=== PATIENT | female | born 1975 | race Caucasian/White ===

== ENCOUNTER 2016-11-07 14:34 | Observation (INO) ==
[2016-11-07] MEDS ORDERED: *HR* Enoxaparin 80 MG/0.8 ML SYRINGE SQ STA (14:56)
--- NOTE | 2016-11-07 15:01 | Emergency Department Note ---
Disposition Clinical Impression: Thyroid nodule Chest pain Qualifiers: Chest pain type: unspecified Qualified Code(s): R07.9 - Chest pain, unspecified Disposition: Admitted As Inpatient Condition: Good Referrals: Bridget Romero CNP [Primary Care Provider] - Forms: ED Satisfaction Letter Time of Disposition: 19:23 Chest Pain HPI - General Chief Complaint: ED Chest Pain Stated Complaint: CP/KEO X4 DAYS Time Seen by Provider: 11/07/16 14:50 Source: patient Mode of arrival: ambulatory Limitations: no limitations Vital Signs Reviewed: Yes Nursing Notes Reviewed: Yes - History of Present Illness HPI Narrative: 41-year-old who comes in complaining of chest pain shortness of breath. The patient has history of previous PE following surgery in the past. Patient does have a Jessa filter. Patient did have a history of being on Xarelto but it was stopped due to the patient requiring transfusions with heavy periods. Patient had a clavicle resection on her shoulder approximately one week ago. Pt complaint: chest pain Onset (ago): hour(s) Duration: constant Onset: during rest Pain Location: substernal, left chest Severity: severe Severity scale (1-10): 9 Quality: sharp Pain Radiation: none Improves with: nothing Worsens with: nothing Context: recent surgery Associated symptoms: Denies: nausea, vomiting, diaphoresis - Related Data Home Medications Medication Instructions Recorded Confirmed Atenolol 100 mg PO DAILY 10/26/15 10/30/16 Cyclobenzaprine HCl 5 - 10 mg PO HS PRN 10/30/16 10/30/16 DiphenhydraMINE [Benadryl] 25 mg PO Q4HR PRN 10/30/16 10/30/16 Ibuprofen [Motrin] 600 mg PO TID PRN 10/30/16 10/30/16 Previous Rx's Medication Instructions Recorded Clindamycin [Cleocin] 150 mg PO Q6HR #7 capsule 10/30/16 OxyCODONE Immed Rel [Roxicodone 5 5 mg PO Q6HR PRN #30 tablet 10/30/16 MG] Allergies Allergy/AdvReac Type Severity Reaction Status Date / Time sulfamethoxazole Allergy Itching Verified 11/07/16 14:44 [From Bactrim] trimethoprim [From Bactrim] Allergy Itching Verified 11/07/16 14:44 divalproex sodium AdvReac Hallucinati Verified 11/07/16 14:44 [From Depakote] ng sumatriptan [From Imitrex] AdvReac Cramping Verified 11/07/16 14:44 of the Muscles Constitutional: Denies: fever, chills, weakness, weight change Eyes: Denies: eye pain, eye discharge, vision change ENT ED: Denies: ear pain, throat pain, dental pain, hearing loss, epistaxis, congestion, dysphagia Cardiovascular: Reports: chest pain. Denies: palpitations, dyspnea on exertion , edema, syncope Respiratory: Reports: dyspnea. Denies: cough, wheezes, hemoptysis, stridor Gastrointestinal: Denies: abdominal pain, nausea, vomiting, diarrhea, constipation, hematemesis, melena, hematochezia Genitourinary: Denies: dysuria, frequency, hematuria, discharge Musculoskeletal: Denies: back pain, neck pain, arthralgia, myalgia Integumentary: Denies: rash, abrasion, lesions Neurological: Denies: headache, weakness, numbness, paresthesias, confusion, abnormal gait, vertigo Psychiatric: Denies: anxiety, depression, suicidal thoughts, homicidal thoughts , auditory hallucinations, visual hallucinations Endocrine: Denies: fatigue Hematological/Lymphatic: Denies: easy bleeding, easy bruising Allergic/Immunologic: Denies: facial swelling, urticaria Chest Pain PMH - Past Medical History Medical history: Reports: hypertension, pulmonary embolus, other Surgical history: Reports: knee replacement, other Psychiatric history: Reports: no psych history - Social History Smoking Status: Never smoker Alcohol use: Reports: none Drug use: Reports: none Physical Exam - General Limitations: no limitations General appearance: alert, in no apparent distress - Head Head exam: atraumatic, normocephalic, normal inspection - Eye Eye exam: Present: normal appearance, PERRL, EOMI - ENT ENT exam: normal exam, normal oropharynx, mucous membranes moist - Neck Neck exam: Present: normal inspection, full ROM, trachea midline - Chest Chest inspection: Present: normal inspection, symmetric chest wall rise - Respiratory Respiratory exam: Present: normal lung sounds bilaterally - Cardiovascular Cardiovascular exam: Present: regular rate, normal rhythm, normal heart sounds - Abdominal Exam Abdominal exam: Present: soft, Non-Tender. Absent: tenderness, distention, guarding, rebound, rigidity - Expanded Lower Extremity Exam Neurovascular/Tendon exam: Absent: motor deficit, sensory deficit, tendon deficit Gait: not tested/not observed - Back Exam Back exam: Present: normal inspection, full ROM. Absent: tenderness - Neurological Exam Neurological exam: Present: alert, oriented X3 - Psychiatric Psychiatric exam: Present: normal affect, normal mood - Skin Skin exam: Present: warm, dry, intact, normal color Course - Reevaluation(s) Reevaluation #1: I discussed with the patient the low GFR. She has had one episode when her GFR was at this level in the past. I did discuss that her d-dimer is elevated however she does have a recent history of surgery. That risk based on her previous PEs and also recent surgery. I did discuss with her the CTA versus VQ scan. I did note that the CTA does give much better information. We will hydrate her. However I cannot guarantee that she will suffer some kidney damage. She understands that and was to proceed with the CTA of the chest. Time: 16:47 Reevaluation #2: Patient is a very high risk factor for PE. CT scan does not appear to be adequate. Were unable to admit her to get a VQ scan we've treated her with Lovenox. Time: 19:23 - Consultations Consultation #1: Discussed with Dr.Adeoye santiago. Time: 19:22 Vital Signs Temperature 97.6 F 11/07/16 14:43 Pulse Rate 98 11/07/16 14:43 Respiratory Rate 16 11/07/16 14:43 Blood Pressure 146/87 11/07/16 14:43 O2 Sat by Pulse Oximetry 100 11/07/16 14:43 Temperature 97.6 F 11/07/16 14:43 Pulse Rate 98 11/07/16 14:43 Respiratory Rate 16 11/07/16 14:43 Blood Pressure 146/87 11/07/16 14:43 O2 Sat by Pulse Oximetry 100 11/07/16 14:43 Oxygen Delivery Oxygen Delivery Room Air Chest Pain - Lab Data Result diagrams: 11/07/16 15:36 11/07/16 15:36 Lab Results 11/07/16 11/07/16 11/07/16 Range/Units 15:36 15:36 15:36 WBC 13.9 H (4.3-11.1) K/mcL RBC 4.42 (3.82-4.97) M/mcL Hgb 12.2 (11.5-15.4) g/dL Hct 38.7 (35.3-44.9) % MCV 87.6 (83.0-100.0) fL MCH 27.6 L (28.0-33.3) pg MCHC 31.5 L (31.6-35.5) g/dL RDW 14.7 H (11.5-14.5) % Plt Count 179 (140-400) K/mcL MPV 9.5 (9.4-12.4) fL Immature Gran % 3.2 (0-4) % Seg Neutrophils % 72.9 % Lymphocytes % 13.9 % Monocytes % 6.4 % Eosinophils % 3.0 % Basophils % 0.6 % Neutrophils # 10.1 H (1.6-8.9) K/mcL Lymphocytes # 1.9 (0.6-4.6) K/mcL Monocytes # 0.9 (0.0-1.3) K/mcL Eosinophils # 0.4 (0.0-0.6) K/mcL Basophils # 0.1 (0.0-0.2) K/mcL PT 13.7 H (9.4-12.1) Seconds INR 1.3 APTT 32.2 (26.0-36.0) Seconds D-Dimer 6517 H (0-500) ng/mLFEU Sodium 134 L (136-145) mEq/L Potassium 5.0 H (3.5-4.5) mEq/L Chloride 104 (98-109) mEq/L Carbon Dioxide 18 L (19-29) mEq/L BUN 26 H (7-20) mg/dL Creatinine 1.28 H (0.57-1.11) mg/dL Est GFR ( Amer) 55 L (> 60) Est GFR (Non-Af Amer) 46 L (> 60) BUN/Creatinine Ratio 20 (6-26) Glucose 96 (70-99) mg/dL Calculated Osmolality 283 (280-300) Calcium 9.5 (8.6-10.8) mg/dL Troponin I (0-0.03) ng/mL 11/07/16 Range/Units 15:36 WBC (4.3-11.1) K/mcL RBC (3.82-4.97) M/mcL Hgb (11.5-15.4) g/dL Hct (35.3-44.9) % MCV (83.0-100.0) fL MCH (28.0-33.3) pg MCHC (31.6-35.5) g/dL RDW (11.5-14.5) % Plt Count (140-400) K/mcL MPV (9.4-12.4) fL Immature Gran % (0-4) % Seg Neutrophils % % Lymphocytes % % Monocytes % % Eosinophils % % Basophils % % Neutrophils # (1.6-8.9) K/mcL Lymphocytes # (0.6-4.6) K/mcL Monocytes # (0.0-1.3) K/mcL Eosinophils # (0.0-0.6) K/mcL Basophils # (0.0-0.2) K/mcL PT (9.4-12.1) Seconds INR APTT (26.0-36.0) Seconds D-Dimer (0-500) ng/mLFEU Sodium (136-145) mEq/L Potassium (3.5-4.5) mEq/L Chloride (98-109) mEq/L Carbon Dioxide (19-29) mEq/L BUN (7-20) mg/dL Creatinine (0.57-1.11) mg/dL Est GFR ( Amer) (> 60) Est GFR (Non-Af Amer) (> 60) BUN/Creatinine Ratio (6-26) Glucose (70-99) mg/dL Calculated Osmolality (280-300) Calcium (8.6-10.8) mg/dL Troponin I 0.00 (0-0.03) ng/mL - Radiology Data Radiology results reviewed: Yes I reviewed the patient's radiology results. Chest CTA 11/07/16 14:53 IMPRESSION: 1. Suboptimal opacification of the pulmonary arteries. No evidence of pulmonary embolus to the proximal segmental level. 2. Mild bibasilar atelectasis. 3. Partially visualized left thyroid nodule. Follow-up thyroid ultrasound is recommended for further evaluation on a nonemergent basis if not previously performed. D/ / Cresencio Frederick MD / Cresencio Frederick MD Interpreting Provider: Cresencio Frederick MD Chest X-Ray 11/07/16 14:53 IMPRESSION: Linear atelectasis at the left lung base. Otherwise no acute abnormality. D/ / Almas Zavala MD / Almas Zavala MD Interpreting Provider: Almas Zavala MD - EKG Data EKG attestation: Yes I reviewed and interpreted this EKG. EKG shows normal: sinus rhythm Rate: tachycardia Rhythm: NSR Interpretation: no acute changes
[2016-11-07 15:50] LABS: Basophils # 0.1 K/mcL (0.0-0.2); Basophils % 0.6 %; Eosinophils # 0.4 K/mcL (0.0-0.6); Hematocrit 38.7 % (35.3-44.9); Hemoglobin 12.2 g/dL (11.5-15.4); Immature Granulocytes % 3.2 % (0-4); Lymphocytes # 1.9 K/mcL (0.6-4.6); Lymphocytes % 13.9 %; Mean Corpuscular HGB Conc 31.5 g/dL (31.6-35.5); Mean Corpuscular Hemoglobin 27.6 pg (28.0-33.3); Mean Corpuscular Volume 87.6 fL (83.0-100.0); Mean Platelet Volume 9.5 fL (9.4-12.4); Monocytes # 0.9 K/mcL (0.0-1.3); Monocytes % 6.4 %; Neutrophils # 10.1 K/mcL (1.6-8.9); Platelet Count 179 K/mcL (140-400); Red Blood Count 4.42 M/mcL (3.82-4.97); Red Cell Distribution Width 14.7 % (11.5-14.5); Segmented Neutrophils % 72.9 %
[2016-11-07 16:03] LABS: Calcium 9.5 mg/dL (8.6-10.8)
[2016-11-07 16:09] LABS: INR 1.3; Prothrombin Time 13.7 Seconds (9.4-12.1)
[2016-11-07 16:12] LABS: Activated Partial Thrombo Time 32.2 Seconds (26.0-36.0)
[2016-11-07] MEDS ORDERED: *HR* HYDROmorphone (PF) 1 MG/ML SYRINGE IVP ONE ×2 (17:41→20:02)
[2016-11-07] MEDS ORDERED: Ondansetron 4 MG/2 ML VIAL IVP ONE (17:41)
[2016-11-07] MEDS: 0.9 % Sodium Chloride 1,000 ML IVC SCH (18:02)
[2016-11-07] MEDS ORDERED: MOM Conc 10 ML UD.LIQ PO PRN (20:12)
[2016-11-07] MEDS ORDERED: *HR* Metoprolol 5 MG/5 ML VIAL IVP PRN (20:12)
[2016-11-07] MEDS ORDERED: Acetaminophen 325 MG TABLET PO PRN (20:12)
[2016-11-07] MEDS ORDERED: 0.9 % Sodium Chloride 1,000 ML IVC STA (20:12)
[2016-11-07] MEDS ORDERED: Nitroglycerin 0.4 MG TAB.SUBL SL PRN (20:12)
[2016-11-07] MEDS ORDERED: Mag Hydrox/Al Hydrox/Simeth 30 ML UDC PO PRN (20:12)
[2016-11-07] MEDS ORDERED: *HR* OxyCODONE Immed Rel 5 MG TABLET PO PRN (20:12)
[2016-11-07] MEDS ORDERED: Aspirin 81 MG TAB.CHEW PO ONE (20:12)
[2016-11-07] MEDS ORDERED: Benzonatate 100 MG CAPSULE PO PRN (20:12)
[2016-11-07] MEDS ORDERED: Naloxone 0.4 MG/ML INJ IVP PRN (20:12)
[2016-11-07] MEDS ORDERED: Albuterol 2.5 MG/3 ML NEBULIZER IH PRN (20:12)
[2016-11-07] MEDS ORDERED: Pantoprazole 40 MG VIAL IVP ONE (20:22)
--- NOTE | 2016-11-07 20:36 | Internal Med History&Physical ---
Date of Encounter: 11/07/16 Time of Encounter: 21:00 Assessment and Plan (1) Chest pain, rule out acute myocardial infarction Current visit: Yes Status: Acute . (2) Chest pain with low risk of acute coronary syndrome Current visit: Yes Status: Acute . (3) Acute chest wall pain Current visit: Yes Status: Acute . (4) Acute kidney injury superimposed on CKD Current visit: Yes Status: Acute . (5) Neutrophilic leukocytosis Current visit: Yes Status: Acute . (6) Systemic inflammatory response syndrome (SIRS) Current visit: Yes Status: Acute . (7) Mild bibasilar atelectasis Current visit: Yes Status: Acute . (8) Hypoventilation associated with obesity Current visit: Yes Status: Acute . (9) Thyroid nodule Current visit: Yes Status: Acute . (10) Hyperkalemia Current visit: Yes Status: Acute . (11) History of pulmonary embolism Current visit: Yes Status: Chronic . (12) Morbid obesity with BMI of 50.0-59.9, adult Current visit: Yes Status: Chronic . (13) Presence of IVC filter Current visit: Yes Status: Chronic . (14) Anxiety about health Current visit: Yes Status: Acute . (15) Coagulopathy Current visit: Yes Status: Chronic . (16) Anxiety as acute reaction to exceptional stress Current visit: Yes Status: Acute . (17) Easy fatigability Current visit: Yes Status: Acute . (18) Sleep disorder, unspecified Current visit: Yes Status: Acute . (19) Snoring Current visit: Yes Status: Acute . (20) Metabolic acidosis Current visit: Yes Status: Acute . (21) Hyponatremia Current visit: Yes Status: Acute . Internal Medicine - H&P: HPI Chief complaint: Chest pain Admitted From: Emergency Dept Plans for Post Hospital Care: Home History of present illness: Ms. Mathur is a 41 year old female with history significant for H/O extensive PEs 2 unprovoked (chronic anticoagulation stopped due to vaginal bleeding), ? DVT x1, IVC filter placement, hypertension, migraine headaches, osteoarthritis, osteopenia, depression and anxiety, iron deficiency anemia, morbid obesity, nonsmoker The patient was visited and interviewed and examined. She was admitted [place] [facility] [place] the [place] department with the complaint of acute chest pain associated with difficulty in breathing . He finds a personal history of unprovoked pulmonary emboli 2 (March 2014 and February 2015). Etiology of unprovoked venous thrombolic disease unknown. Patient withdrawn from chronic anticoagulation therapy due to recurring vaginal bleeding while on Xarelto. A Haven filter has been placed for prophylactic detection from further events. She states however she has never to her knowledge experienced a DVT of the lower extremities or upper extremities as a source for her current thromboembolic events. (Medical record however states that in 2007 she experienced her first episode of DVT. A coagulation workup at [facility] in [place] reportedly was unremarkable at that time. She was treated with 6 months of Coumadin therapy and discontinued). She denies any family history of increased clotting disorders or vascular or cerebrovascular medical events. Reports that her current symptoms followed right shoulder surgery (arthroscopic resection and subacromial decompression) performed approximately 2 days prior to presentation. This included a repair of a rotator cuff tear and clavicular resection by minimally invasive seizure. During her surgery she reports that she held listless and experienced easy fatigability that just did not resolve disimpacted unfavorably in her ability to complete her personal activities independently. An acute onset of chest discomfort during rest substernal with a left-sided preference was seen. She did acknowledge positional and respiratory variation in this discomfort. She described it as severe and sharp that a 8-10/10 severity. Nothing seemed to improve symptoms were present. Acknowledge Presence of dyspnea at rest and increase with activity. She denies any associated nausea vomiting diaphoresis headache unilateral weakness dyspnea syncope presyncope palpitations or peripheral edema. He denies any fevers chills sweats. She denied any evidence of any bleeding events (epistaxis, hemoptysis hematemesis melena hematuria ecchymoses etc.). Denied any inflammatory changes of the right shoulder including redness swelling pain or discharge from wound sites. The onset of symptoms and persistence of listlessness and feeling of intermittent ability to take a deep breath rest of the time with pulmonary emboli events. She denies any significant dietary medication or recreational indiscretions. She is a nonsmoker. Findings in the ED: Temperature 97.6 pulse 89 respirations 16 BP 146/87 O2 saturation 100% room air. WBC 13.9 hemoglobin 12.2 platelets 179,000. MCH 27.6 MCHC 31.5. Differential showed an increase in neutrophils. PT 13.7 INR 1.3 PTT 32.2 d- dimer 6517. Metabolic panel findings sodium 134 potassium 5 carbon dioxide 18 BUN 26 creatinine 1.28 GFR 46. Glucose 96 osmolality 283. Troponin 0.00. BNP less than 10. EKG sinus tachycardia normal sinus rhythm with no acute ischemic changes. CTA of the chest demonstrated no evidence of pulmonary embolus to the proximal segmental level. (Suboptimal opacification of the pulmonary arteries) . Mild bibasilar atelectasis. Partially visualized left thyroid nodule approximately 8 mm in diameter. The main pulmonary artery is not enlarged. No evidence of mediastinal lymphadenopathy. Heart and pericardium demonstrated no abnormality. No acute abnormalities thoracic aorta. Airways are unremarkable. No pneumothorax or pleural effusion seen. Limited images of her abdomen unremarkable. Soft tissues revealed no acute bone or soft tissue abnormality. Portable chest x-ray reveals linear atelectasis at the lung base, left. No focal consolidation or pleural effusion pneumothorax. Heart size normal. Low lung volumes. Pulmonary impression suggests noncardiogenic chest pain syndrome secondary to basilar atelectasis with pleuritic quality pain and significant hypoventilation with associated bibasilar atelectasis secondary to obesity and as a sequela from recent intubation and ventilator support while under general anesthesia for orthopedic surgery. Patient dates symptoms beginning following her procedure with persistence. Screening studies suggest systemic inflammatory response syndrome and sepsis criteria are met at the time of admission. Source for infection is unclear. Studies suggest acute kidney injury stage III. Additional studies are pending. A indeterminate thyroid nodule was noted warranting further evaluation. 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 Indeed her mother 's symptoms of late have been of increasing concern for Mrs. Mathur with an episode of [id number] seizures experienced just 2 days before surgery. She acknowledges additional personal demands but did not elaborate. 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 He also notes that she is a very loud snorer when the question was brought up of possible obstructive sleep apnea. She meets criterion for this yet to be diagnosed sleep disorder and sleep disordered breathing. The body habitus is worrisome for a pickwickian syndrome. Condition being aggravated following her surgery and anesthesia and intubation associated compressive atelectasis. Intubation and ventilator support may be underlying current relationship of her symptoms presented now. The patient is at risk for further clinical decline and morbidity given her presenting concerns , findings and comorbidities. Workup and treatment will proceed comprehensively. Cumulative laboratory and radiographic data base was reviewed, considered and discussed. Pertinent ancillary medical records including ECW and PCI documentation, when available was reviewed and considered. Given the patient's presenting concerns, past medical history, clinical findings and symptoms, she is admitted at this time will undergo further evaluation and disposition. Orders were written as per the computerized physician division order analyst system.......................................................................... .................... Consultative opinions will be sought as clinical circumstances justify. Pain management needs will be addressed. Laboratory and radiographic data base will be updated as appropriate. Studies include: Cultures of blood and urine and sputum, cpk, cardiac injury panel, BNP , metabolic and hematologic panel, magnesium, phosphorus, ionized calcium, thyroid panel, lipid profile, A1c, C-peptide, CRP, sedimentation rate, respiratory infection profile, respiratory virus panel, blood gas, U/A, coagulation panel, D-Dimer, lactic acid, serologies, etc. Precautions: Aspiration, fall, delirium protocol/surveillance initiated. Telemetry with continuous hemodynamic monitoring and pulse oximetry initiated. Empiric antibody coverage: pending weaning laboratory and culture data. Special studies: CTA chest, chest x-ray, telemetry, EKG, latter scan, postvoid, ultrasound retroperitoneum, echocardiogram, thyroid ultrasound. Pulmonary toilet: Incentive spirometry, aerosol bronchodilator, mucolytic, antitussive, supplemental oxygen. Flutter valve with neb treatments. Acapella. Corticosteroid therapy prn. CPAP/BiPAP supplemental oxygen delivery prn. Aerosol Mucomyst therapy prn. Fluid and electrolyte repletion efforts will proceed. Careful attention to fluid balance and renal recovery will be emphasized. Avoidance of nephrotoxic exposure and adverse drug drug interaction in the setting of impaired renal function will be monitored closely. Acute coronary syndrome protocol/surveillance initiated. DVT and PUD prophylaxis initiated: PPI therapy, intermittent pneumatic cuffs. Subcutaneous heparin/lovenox. Early ambulation will be encouraged. Immunization updates recommended. Influenza and pneumococcal vaccinations as part of ongoing preventative healthcare recommendations strongly recommended. Smoking cessation counseling briefly addressed. Patient is a nonsmoker. Advanced care directive discussion briefly addressed. Patient does not declare any healthcare restrictions at this time. Cardiovascular risk appraisal and cardiovascular risk reduction efforts will be emphasized. Physical and occupational therapy may be consulted to evaluate/assess patient's functional capacity and progress mobility if circumstances justify. The patient has been counseled regarding the importance of aerobic exercise especially focusing on improvement in lung dynamics and aeration. Along with weight loss atelectasis and low lung volumes noted at admission should resolve. Nutrition/dietary education counseling may be considered if circumstances justify it may be pursued in the outpatient with facilitation by her primary care physician. The patient has been stressed importance of pursuing an outpatient as sleep clinic appointment the intent to arrange for a sleep study and formal definition of her sleep-disordered breathing. He is stressed importance of pursuing this and arriving at a plan of care for what is suspicious for NELL and OHS. Outpatient medication schedules will be reviewed, confirmed and facilitated as appropriate. Reconciliation of home treatments including adjustments, substitutions and reintroduction into the treatment regimen will address necessary maintenance therapies for chronic pre-existing medical conditions. Plan of care has been reviewed and discussed in detail with the patient and her family. Questions addressed to their mutual satisfaction and reassurance.. Hospital course depend upon collective clinical findings, treatment response and potential consultative interventions. Patient is at risk for further acute clinical decline and morbidity due to her presenting chief complaints and comorbid conditions. Lifelong chronic anticoagulation therapy is normally recommended in multiple recurrent VTE events as seen in this patient. However she has chosen to forego chronic anticoagulation. She has declined in the past gynecologic interventions(i.e., endometrial ablation, hysterectomy, etc.) for her recurrent vaginal bleeding while on a prolonged anticoagulant therapy. He voices understanding of her risks. Condition is serious. Prognosis is cautiously optimistic. CODE STATUS is full. Past Med Surg Social Fam HX - Past Medical History Source: old records reviewed Medical history: arthritis, GERD, hypertension, osteoporosis, pulmonary embolus , other (Morbid obesity) Psychiatric history: no psych history - Past Surgical History Surgical History: knee replacement, orthopedic, other, other (IVC filter placement. Dilatation and curettage procedure.), arthroscopy - Social History Smoking Status: Never smoker Smokeless Tobacco Status: No Alcohol use: none Drug use: none Occupational status: employed Current living situation: With Family Activity Level: Independent ambulation, Mostly sedentary Recent Out of Country Travel Within the Last 8 Weeks: No Exposure or Possible Exposure to Illness During Travel: No - Family History Father Hx Family Cardiac Disorders: Yes (HTN) Internal Medicine - H&P: Meds Atenolol 100 mg PO DAILY 10/26/15 [History] Allergies sulfamethoxazole [From Bactrim] Allergy (Verified 11/07/16 14:44) Itching trimethoprim [From Bactrim] Allergy (Verified 11/07/16 14:44) Itching divalproex sodium [From Depakote] Adverse Reaction (Verified 11/07/16 14:44) Hallucinating sumatriptan [From Imitrex] Adverse Reaction (Verified 11/07/16 14:44) Cramping of the Muscles All Systems PM: A 10-system review of systems was performed and is negative for pertinent findings except as documented above in the HPI. - Constitutional Constitutional: as per HPI, malaise, no chills, no fever(s), no night sweats - EENT Eyes: as per HPI, no change in vision, no discharge, no pain, no photophobia Ears: as per HPI, no ear discharge, no ear pain, no tinnitus Nose, mouth and throat: as per HPI, no dysphagia, no nasal discharge, no neck pain, no sore throat - Cardiovascular Cardiovascular ROS IM: as per HPI, chest pain, dyspnea, no diaphoresis, no lightheadedness, no palpitations, no syncope - Respiratory Respiratory: as per HPI, dyspnea, snoring, stridor, pain on inspiration, pain with cough, other, no cough, no hemoptysis, no wheezing, no excessive phlegm production - Gastrointestinal Gastrointestinal: as per HPI, no abdominal pain, no diarrhea, no hematemesis, no hematochezia, no melena, no nausea, no vomiting - Genitourinary Genitourinary: as per HPI, no change in urinary stream, no dysuria, no flank pain, no hematuria - Musculoskeletal Musculoskeletal ROS IM: as per HPI, other, no numbness, no tingling - Integumentary Integumentary IM: as per HPI, no rash, no unusual bruising - Neurological Neurological ROS: as per HPI, no confusion, no convulsions, no focal weakness, no numbness, no tingling, no tremor(s) - Psychiatric Psychiatric: as per HPI - Endocrine Endocrine IM: as per HPI - Hematologic/Lymphatic Hematologic/Lymphatic: as per HPI, no easy bruising - Allergic/Immunologic Allergic/Immunologic: as per HPI - Constitutional Vitals: Temp Pulse Resp BP Pulse Ox 97.6 F 98 16 141/85 100 11/07/16 14:43 11/07/16 14:43 11/07/16 20:10 11/07/16 20:10 11/07/16 14:43 General appearance: Present: cooperative, A&O X 3, morbidly obese, no acute distress, answers questions appropriately - Head Head exam: Present: atraumatic, normal inspection, normocephalic - Eye Eye exam: Present: EOMI, PERRL, conjuntiva pink, sclera anicteric Pupils: Present: normal accommodation, PERRL - ENT ENT exam: Present: mucous membranes moist, normal external ear exam, normal oropharynx - Neck Neck exam general surgery: Present: full ROM, supple, trachea midline. Absent: lymphadenopathy, tenderness, nuchal rigidity - Respiratory Respiratory exam: Present: chest wall tenderness, decreased breath sounds, CTAB. Absent: accessory muscle use, rales, respiratory distress, rhonchi, stridor, wheezes, tachypnea - Cardiovascular Cardiovascular exam: Present: distant heart sounds, RRR, +S1, +S2. Absent: diastolic murmur, gallop, rubs, systolic murmur - GI/Abdominal GI/Abdominal exam: Present: diminished bowel sounds, soft, no peritoneal signs. Absent: distended, tenderness - Extremities Exam Extremities exam: Present: full ROM, warm, radial pulses palpable and symetrical. Absent: calf tenderness, cyanotic, pedal edema, tenderness - Neurological Exam Neurological exam: Present: alert, CN II-XII intact, oriented X3, no focal deficits, strengths equal and symetr throughout. Absent: pronater drift, facial droop, speech deficit - Expanded Neurological Exam Neurological exam expanded: Present: protecting the airway. Absent: ataxia, expressive aphasia, receptive aphasia, tremor Patient oriented to: Present: person, place, time Speech: Present: fluid speech Coma Scale Eye Opening: Spontaneous Coma Scale Motor Response: Obeys Commands Coma Scale Verbal Response: Oriented Coma Scale Total: 15 - Psychiatric Psychiatric exam: Present: normal affect, normal mood - Skin Skin exam: Present: dry, intact, warm. Absent: petechiae, rash, urticaria, vesicles Internal Med - H&P Results - Labs CBC & Chem 7: 11/07/16 15:36 11/07/16 15:36 - Impressions Vital Signs Temp Pulse Resp BP Pulse Ox 11/07/16 20:10 16 141/85 11/07/16 14:43 97.6 F 98 16 146/87 100 Intake and Output 11/07/16 11/07/16 11/07/16 07:59 15:59 23:59 Other: Weight 158.757 kg Patient Weight 11/07/16 23:59 Weight 158.757 kg Short CBC 11/07/16 Range/Units 15:36 WBC 13.9 H (4.3-11.1) K/mcL Hgb 12.2 (11.5-15.4) g/dL Hct 38.7 (35.3-44.9) % Plt Count 179 (140-400) K/mcL Neutrophils # 10.1 H (1.6-8.9) K/mcL BMP 11/07/16 Range/Units 15:36 Sodium 134 L (136-145) mEq/L Potassium 5.0 H (3.5-4.5) mEq/L Chloride 104 (98-109) mEq/L Carbon Dioxide 18 L (19-29) mEq/L BUN 26 H (7-20) mg/dL Creatinine 1.28 H (0.57-1.11) mg/dL Glucose 96 (70-99) mg/dL Calcium 9.5 (8.6-10.8) mg/dL Cardiac Enzymes 11/07/16 Range/Units 15:36 Troponin I 0.00 (0-0.03) ng/mL Abnormal lab results WBC 13.9 K/mcL (4.3-11.1) H 11/07/16 15:36 MCH 27.6 pg (28.0-33.3) L 11/07/16 15:36 MCHC 31.5 g/dL (31.6-35.5) L 11/07/16 15:36 RDW 14.7 % (11.5-14.5) H 11/07/16 15:36 Neutrophils # 10.1 K/mcL (1.6-8.9) H 11/07/16 15:36 PT 13.7 Seconds (9.4-12.1) H 11/07/16 15:36 D-Dimer 6517 ng/mLFEU (0-500) H 11/07/16 15:36 Sodium 134 mEq/L (136-145) L 11/07/16 15:36 Potassium 5.0 mEq/L (3.5-4.5) H 11/07/16 15:36 Carbon Dioxide 18 mEq/L (19-29) L 11/07/16 15:36 BUN 26 mg/dL (7-20) H 11/07/16 15:36 Creatinine 1.28 mg/dL (0.57-1.11) H 11/07/16 15:36 Est GFR ( Amer) 55 (> 60) L 11/07/16 15:36 Est GFR (Non-Af Amer) 46 (> 60) L 11/07/16 15:36 Allergies Allergy/AdvReac Type Severity Reaction Status Date / Time sulfamethoxazole Allergy Itching Verified 11/07/16 14:44 [From Bactrim] trimethoprim [From Bactrim] Allergy Itching Verified 11/07/16 14:44 divalproex sodium AdvReac Hallucinati Verified 11/07/16 14:44 [From Depakote] ng sumatriptan [From Imitrex] AdvReac Cramping Verified 11/07/16 14:44 of the Muscles Laboratory Results WBC 13.9 K/mcL (4.3-11.1) H 11/07/16 15:36 RBC 4.42 M/mcL (3.82-4.97) 11/07/16 15:36 Hgb 12.2 g/dL (11.5-15.4) 11/07/16 15:36 Hct 38.7 % (35.3-44.9) 11/07/16 15:36 MCV 87.6 fL (83.0-100.0) 11/07/16 15:36 MCH 27.6 pg (28.0-33.3) L 11/07/16 15:36 MCHC 31.5 g/dL (31.6-35.5) L 11/07/16 15:36 RDW 14.7 % (11.5-14.5) H 11/07/16 15:36 Plt Count 179 K/mcL (140-400) 11/07/16 15:36 MPV 9.5 fL (9.4-12.4) 11/07/16 15:36 Immature Gran % 3.2 % (0-4) 11/07/16 15:36 Seg Neutrophils % 72.9 % 11/07/16 15:36 Lymphocytes % 13.9 % 11/07/16 15:36 Monocytes % 6.4 % 11/07/16 15:36 Eosinophils % 3.0 % 11/07/16 15:36 Basophils % 0.6 % 11/07/16 15:36 Neutrophils # 10.1 K/mcL (1.6-8.9) H 11/07/16 15:36 Lymphocytes # 1.9 K/mcL (0.6-4.6) 11/07/16 15:36 Monocytes # 0.9 K/mcL (0.0-1.3) 11/07/16 15:36 Eosinophils # 0.4 K/mcL (0.0-0.6) 11/07/16 15:36 Basophils # 0.1 K/mcL (0.0-0.2) 11/07/16 15:36 PT 13.7 Seconds (9.4-12.1) H 11/07/16 15:36 INR 1.3 11/07/16 15:36 APTT 32.2 Seconds (26.0-36.0) 11/07/16 15:36 D-Dimer 6517 ng/mLFEU (0-500) H 11/07/16 15:36 Sodium 134 mEq/L (136-145) L 11/07/16 15:36 Potassium 5.0 mEq/L (3.5-4.5) H 11/07/16 15:36 Chloride 104 mEq/L (98-109) 11/07/16 15:36 Carbon Dioxide 18 mEq/L (19-29) L 11/07/16 15:36 BUN 26 mg/dL (7-20) H 11/07/16 15:36 Creatinine 1.28 mg/dL (0.57-1.11) H 11/07/16 15:36 Est GFR ( Amer) 55 (> 60) L 11/07/16 15:36 Est GFR (Non-Af Amer) 46 (> 60) L 11/07/16 15:36 BUN/Creatinine Ratio 20 (6-26) 11/07/16 15:36 Glucose 96 mg/dL (70-99) 11/07/16 15:36 Calculated Osmolality 283 (280-300) 11/07/16 15:36 Calcium 9.5 mg/dL (8.6-10.8) 11/07/16 15:36 Troponin I 0.00 ng/mL (0-0.03) 11/07/16 15:36 Impressions Chest CTA 11/07/16 14:53 IMPRESSION: 1. Suboptimal opacification of the pulmonary arteries. No evidence of pulmonary embolus to the proximal segmental level. 2. Mild bibasilar atelectasis. 3. Partially visualized left thyroid nodule. Follow-up thyroid ultrasound is recommended for further evaluation on a nonemergent basis if not previously performed. D/ / Cresencio Frederick MD / Cresencio Frederick MD Interpreting Provider: Cresencio Frederick MD Chest X-Ray 11/07/16 14:53 IMPRESSION: Linear atelectasis at the left lung base. Otherwise no acute abnormality. D/ / Almas Zavala MD / Almas Zavala MD Interpreting Provider: Almas Zavala MD
[2016-11-07] MEDS: Ipratropium/Albuterol Neb 3 ML IH SCH (23:09)
[2016-11-07 23:12] LABS: Magnesium 1.9 mg/dL (1.6-2.6); Phosphorous 5.5 mg/dL (2.3-4.7)
[2016-11-08] MEDS: *HR* HYDROmorphone (PF) 1 MG/ML SYRINGE IVP PRN ×3 (02:44→11:53)
[2016-11-08] MEDS ORDERED: Calcium Gluconate 1,000 MG in D5% in Water 100 ML IVPB ONE (02:46)
[2016-11-08 05:06] LABS: Bilirubin,Urine Small (Negative); Blood,Urine Negative (Negative); Clarity,Urine Clear (Clear); Color,Urine Yellow (Yellow); Glucose,Urine (UA) Normal (Normal); Ketones,Urine Negative (Negative); Leukocyte Esterase,Urine Negative (Negative); Nitrite,Urine Negative (Negative); PH,Urine 5.5 pH Units (5.0-8.0); Protein,Urine Trace mg/dL (Neg-Trace); Specific Gravity,Urine > 1.030 (1.010-1.025); Urobilinogen,Urine Normal (Normal)
[2016-11-08 05:08] LABS: Bacteria,Urine None Seen per hpf (None-Few); Hyaline Casts,Urine None Seen per lpf (None-Few); Squamous Epithelial Cell,Urine Many per lpf (None-Few); WBC,Urine 0-3 per hpf (0-3)
[2016-11-08] MEDS: Ipratropium/Albuterol Neb 3 ML IH SCH ×2 (05:11→10:35)
[2016-11-08] MEDS: Ondansetron 4 MG/2 ML VIAL IVP PRN ×2 (08:46→11:53)
[2016-11-08] MEDS: 0.9 % Sodium Chloride 1,000 ML IVC SCH ×2 (08:48→12:06)
[2016-11-08] MEDS ORDERED: Aspirin 81 MG TAB.CHEW PO SCH (09:00)
[2016-11-08 10:42] VITALS: BP 105/69
--- NOTE | 2016-11-08 11:33 | Discharge Summary ---
Date of Encounter: 11/08/16 Time of Encounter: 11:25 - Discharge Diagnosis (1) Atypical chest pain Priority: Primary Status: Acute (2) Mild bibasilar atelectasis Priority: Primary Status: Acute - Discharge Medications Prescriptions: Naproxen Sodium [Aleve] 440 mg PO BID PRN 7 Days PRN Reason: Chest Pain Home Medications: Atenolol 100 mg PO DAILY 10/26/15 [History] Naproxen Sodium [Aleve] 440 mg PO BID PRN 7 Days 11/08/16 [Rx] Allergies/Adverse Reactions: Allergies sulfamethoxazole [From Bactrim] Allergy (Verified 11/07/16 14:44) Itching trimethoprim [From Bactrim] Allergy (Verified 11/07/16 14:44) Itching divalproex sodium [From Depakote] Adverse Reaction (Verified 11/07/16 14:44) Hallucinating sumatriptan [From Imitrex] Adverse Reaction (Verified 11/07/16 14:44) Cramping of the Muscles Procedures/tests Complete & Pending: Procedures Performed prior 72 hours Category Date Time Status US retroperitoneal comp [US] Routine Exams 11/07/16 20:12 Ordered US thyroid [US] Routine Exams 11/07/16 20:12 Ordered ECG 12 lead ECG [ECG] Routine Y 11/08/16 07:00 Ordered EV echocardiogram Routine Y 11/07/16 20:12 Ordered Date of admission: 11/07/16 19:31 Primary care physician: Bridget Romero, Consults: 11/07/16 20:12 Consult to Nurse Navigator [CONS] Routine Comment: Discharging clinician: Jacobo Strickland Anticipated date of discharge: 11/08/16 - Patient Status Disposition: Home, Self-Care Condition: Good Overall status at discharge: patient is back to baseline - Discharge Instructions Follow Up With: Bridget Romero, PULMONOLOGY PHYSICIAN [Primary Care Provider] - - Diet and Activity Activity: resume usual activities as tolerated Diet: advance to your usual diet, low fat, low cholesterol Interval History: No more episodes of pain. CTA and V/Q scan are essentially normal studies. Hospital course: Ms. 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 As she had recentlt undergone surgery and given a marked elevated d-dimer, she was admitted for evaluation of thrombo-embolic episode. CTA and V/Q are essentially normal. Studies show bibasilar atelectasis. I suspect this could have a basis in the etiology of her pain. She has refused chronic anticoagulation because of a history of ueterine bleeding with previous exposure to anticoagulation. IVC filter was place as safetyy net. At discharge: O/E: Not in distress, morbidly obese HEENT: Not plae, anicteric, afebrile, acyanotic Chest: CTAB, chest pain partially reproduced by deep inspiration Heart: RRR, HS1/2, no M. Abdomen: soft, non-tender, no masses. : No flank tenderrness, no CVA tenderness, no suprapubic tenderness. 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 No gross focal neurological deficits. Skin: No active skin lesions. Final diagnosis 1. Atypical chest pain 2. Bibasilar atelectasis 3. Recurrent thrombo-embolic disease 4. Morbid obesity PLAN DC home F/U with PCP Naproxen (Aleve) 440 mg BID PRN Conscious breathing Incentive spirometry. Gynecological evaluation as prelude to commencing chronic anticoagulation. Weight loss - Time Spent with Patient Total time spent providing and/or coordinating discharge services: Less than 30 minutes Specific discharge activities: DC home. F/U with PCP. Naproxen (Aleve) 440 mg BID PRN. Conscious breathing. Incentive spirometry. Gynecological evaluation as prelude to commencing chronic anticoagulation. Weight loss - Constitutional Vitals: Temp Pulse Resp BP Pulse Ox 97.9 F 82 17 105/69 94 L 11/08/16 10:41 11/08/16 10:41 11/08/16 10:41 11/08/16 10:41 11/08/16 10:41 General appearance: Present: cooperative, A&O X 3, morbidly obese, no acute distress, answers questions appropriately
--- NOTE | 2016-11-08 20:01 | Electrocardiograph Report ---
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
== END 2016-11-08 12:29 | disposition home or self-care (01) ==
LOC: 3BNU 14:34 → EMEROO 14:34 → 3BNU 20:17
PROVIDERS: ADMIT Family Medicine; ATTEND Internal Medicine Endocrinology, Diabetes & Metabolism

== ENCOUNTER 2016-11-12 13:01 | Inpatient (IN) ==
--- NOTE | 2016-11-12 13:31 | Emergency Department Note ---
Disposition Clinical Impression: Deep vein thrombosis of lower extremity, Obesity, Non-cardiac chest pain, Morbid obesity with BMI of 50.0-59.9, adult, Anemia Disposition: Admitted As Inpatient General Adult HPI - General Chief complaint: ED Extremity Problem,Nontraumatic Stated complaint: Left leg pain Possible DVT Time Seen by Provider: 11/12/16 13:31 Source: patient Limitations: no limitations - History of Present Illness HPI Narrative: 41-year-old female reports emergency department complaining of right lower extremity pain and swelling. She states she has a history of DVT and PE. She was recently admitted to the hospital for chest pain and evaluated, she had a negative CTA and VQ scan. The patient was discharged. She states she has developed right lower externa pain and swelling since the admission. There is no history of trauma. No fever. No coldness blueness numbness or weakness of the arms or legs. There is no history of a abdominal pain vomiting or diarrhea. She describes intermittent chest pain which is not associated with exertion. She also describes significant anxiety but denies depressive features or suicidality or homicidality. There is no history of headache or back pain. She states she is not anticoagulated. The patient is worried about her right lower extremity and pain in the right lower extremity, she is concerned about a DVT. There has been no coughing up blood, no fever, no cough in general. No shortness of breath no syncope. She has had no trouble moving her arms or legs independently. She describes resting pain in her right lower extremity. She states she also had recent shoulder arthroscopy. There is no report of acute shoulder pain. Onset (ago): day(s) Pain Scale: 10 - Related Data Home Medications Medication Instructions Recorded Confirmed Atenolol 100 mg PO DAILY 10/26/15 11/12/16 Allergies Allergy/AdvReac Type Severity Reaction Status Date / Time sulfamethoxazole Allergy Itching Verified 11/07/16 14:44 [From Bactrim] trimethoprim [From Bactrim] Allergy Itching Verified 11/07/16 14:44 divalproex sodium AdvReac Hallucinati Verified 11/07/16 14:44 [From Depakote] ng sumatriptan [From Imitrex] AdvReac Cramping Verified 11/07/16 14:44 of the Muscles All systems ED: reviewed and negative except as stated. Past Medical History - Past Medical History Medical history: Reports: arthritis, GERD, hypertension, osteoporosis, pulmonary embolus, other Surgical history: Reports: knee replacement, orthopedic, other, other (IVC filter placement. Dilatation and curettage procedure.), arthroscopy Psychiatric history: Reports: no psych history - Social History Smoking Status: Never smoker Smokeless Tobacco Status: No Alcohol use: Reports: none Drug use: Reports: none Physical Exam - General Limitations: no limitations General appearance: alert, anxious - Head Head exam: atraumatic, normocephalic, normal inspection - Eye Eye exam: Present: normal appearance, PERRL, EOMI - ENT ENT exam: normal exam, normal oropharynx, mucous membranes moist, TM's normal bilaterally, normal external ear exam - Neck Neck exam: Present: normal inspection, full ROM, trachea midline. Absent: tenderness - Chest Chest inspection: Present: symmetric chest wall rise. Absent: tenderness - Respiratory Respiratory exam: Present: normal lung sounds bilaterally. Absent: respiratory distress - Cardiovascular Cardiovascular exam: Present: regular rate, normal rhythm, normal heart sounds - Abdominal Exam Abdominal exam: Present: soft, Non-Tender. Absent: tenderness, distention, guarding, rebound, rigidity - Extremities Exam Extremities exam: Present: full ROM, normal capillary refill, other (All extremities are warm and well perfused and supple without evidence of trauma. The patient is morbidly obese, her legs are very large but in general symmetric , she does have some calf pain to palpation without evidence of trauma. There is also some pain with movement in general. There is no evidence of acute neurovascular or neuromuscular compromise in any extremity. The right calf is tender to palpation no redness.). Absent: joint swelling - Expanded Lower Extremity Exam Neurovascular/Tendon exam: Absent: motor deficit, sensory deficit, tendon deficit - Back Exam Back exam: Present: normal inspection, full ROM. Absent: tenderness, CVA tenderness (R), CVA tenderness (L), vertebral tenderness - Neurological Exam Neurological exam: Present: alert, oriented X3, normal gait. Absent: motor sensory deficit Course Vital Signs Temperature 96.5 F L 11/12/16 13:10 Pulse Rate 108 11/12/16 13:10 Respiratory Rate 18 11/12/16 13:10 Blood Pressure 163/93 11/12/16 13:10 O2 Sat by Pulse Oximetry 100 11/12/16 13:10 Temperature 96.5 F L 11/12/16 13:10 Pulse Rate 116 11/12/16 18:11 Respiratory Rate 14 11/12/16 18:11 Blood Pressure 117/89 11/12/16 18:11 O2 Sat by Pulse Oximetry 96 11/12/16 18:11 Oxygen Delivery Oxygen Delivery Room Air Medical Decision Making - MDM Narrative Medical decision making narrative: The patient's chest x-ray EKG and cardiac enzymes are nonacute. She describes chest pain which does not sound cardiogenic in origin. Her recent VQ can and CTA chest reveal no pulmonary embolus. She has an IVC filter in place. The patient does have extensive thrombus in the right lower extremity. Her previous d-dimer a few days ago was 6500. The patient describes a history of recurrent vaginal bleeding on Xarelto requiring 2 D&Cs. She reported half- strength Xarelto also caused persistent vaginal bleeding so she discontinued the medication. The patient appears to have significant DVT significant DVT burden. I reviewed the case with the hospitalist on-call who will admit the patient for further evaluation. The patient is currently stable. She is somewhat anemic. She does not describe gastrointestinal bleeding or acute bleeding otherwise. Aspirin was ordered. Anticoagulation therapy per the hospitalist team. An interventional consult was ordered by the hospitalist. - Lab Data Lab results reviewed: Yes I reviewed the patient's lab results. Result diagrams: 11/12/16 17:30 11/12/16 17:37 Lab Results 11/12/16 11/12/16 11/12/16 Range/Units 17:30 17:30 17:30 WBC 13.3 H (4.3-11.1) K/mcL RBC 3.51 L (3.82-4.97) M/mcL Hgb 9.7 L D (11.5-15.4) g/dL Hct 30.4 L (35.3-44.9) % MCV 86.6 (83.0-100.0) fL MCH 27.6 L (28.0-33.3) pg MCHC 31.9 (31.6-35.5) g/dL RDW 14.6 H (11.5-14.5) % Plt Count 184 (140-400) K/mcL MPV 9.9 (9.4-12.4) fL Immature Gran % 1.1 (0-4) % Seg Neutrophils % 81.0 % Lymphocytes % 9.9 % Monocytes % 6.2 % Eosinophils % 1.4 % Basophils % 0.4 % Neutrophils # 10.8 H (1.6-8.9) K/mcL Lymphocytes # 1.3 (0.6-4.6) K/mcL Monocytes # 0.8 (0.0-1.3) K/mcL Eosinophils # 0.2 (0.0-0.6) K/mcL Basophils # 0.1 (0.0-0.2) K/mcL PT 12.7 H (9.4-12.1) Seconds INR 1.2 APTT 21.3 L (26.0-36.0) Seconds Sodium (136-145) mEq/L Potassium (3.5-4.5) mEq/L Chloride (98-109) mEq/L Carbon Dioxide (19-29) mEq/L BUN (7-20) mg/dL Creatinine (0.57-1.11) mg/dL Est GFR ( Amer) (> 60) Est GFR (Non-Af Amer) (> 60) BUN/Creatinine Ratio (6-26) Glucose (70-99) mg/dL Calculated Osmolality (280-300) Calcium (8.6-10.8) mg/dL Total Bilirubin (0.2-1.2) mg/dL Direct Bilirubin (0.0-0.5) mg/dL Indirect Bilirubin (0.0-1.2) mg/dL AST (5-34) Units/L ALT (0-55) Units/L Alkaline Phosphatase (38-126) Units/L Troponin I 0.00 (0-0.03) ng/mL C-Reactive Protein (Less than 5) mg/L Serum Total Protein (6.0-8.3) g/dL Albumin (3.5-5.0) g/dL Globulin (2.4-3.5) g/dL Albumin/Globulin Ratio (1.1-2.2) Lipase (8-78) Units/L Serum , Qual (Negative) 11/12/16 11/12/16 Range/Units 17:30 17:37 WBC (4.3-11.1) K/mcL RBC (3.82-4.97) M/mcL Hgb (11.5-15.4) g/dL Hct (35.3-44.9) % MCV (83.0-100.0) fL MCH (28.0-33.3) pg MCHC (31.6-35.5) g/dL RDW (11.5-14.5) % Plt Count (140-400) K/mcL MPV (9.4-12.4) fL Immature Gran % (0-4) % Seg Neutrophils % % Lymphocytes % % Monocytes % % Eosinophils % % Basophils % % Neutrophils # (1.6-8.9) K/mcL Lymphocytes # (0.6-4.6) K/mcL Monocytes # (0.0-1.3) K/mcL Eosinophils # (0.0-0.6) K/mcL Basophils # (0.0-0.2) K/mcL PT (9.4-12.1) Seconds INR APTT (26.0-36.0) Seconds Sodium 135 L (136-145) mEq/L Potassium 4.0 (3.5-4.5) mEq/L Chloride 104 (98-109) mEq/L Carbon Dioxide 19 (19-29) mEq/L BUN 13 (7-20) mg/dL Creatinine 0.80 (0.57-1.11) mg/dL Est GFR ( Amer) > 60 (> 60) Est GFR (Non-Af Amer) > 60 (> 60) BUN/Creatinine Ratio 16 (6-26) Glucose 90 (70-99) mg/dL Calculated Osmolality 280 (280-300) Calcium 8.9 (8.6-10.8) mg/dL Total Bilirubin 0.7 (0.2-1.2) mg/dL Direct Bilirubin 0.3 (0.0-0.5) mg/dL Indirect Bilirubin 0.4 (0.0-1.2) mg/dL AST 13 (5-34) Units/L ALT 13 (0-55) Units/L Alkaline Phosphatase 88 (38-126) Units/L Troponin I (0-0.03) ng/mL C-Reactive Protein 126 H (Less than 5) mg/L Serum Total Protein 7.8 (6.0-8.3) g/dL Albumin 3.5 (3.5-5.0) g/dL Globulin 4.3 H (2.4-3.5) g/dL Albumin/Globulin Ratio 0.8 L (1.1-2.2) Lipase 44 (8-78) Units/L Serum , Qual Negative (Negative) - Radiology Data Radiology results reviewed: Yes I reviewed the patient's radiology results.
[2016-11-12] MEDS ORDERED: *HR* OxyCODONE/APAP 10/325 TABLET PO ONE (16:27)
--- NOTE | 2016-11-12 17:27 | Venous Imaging Report ---
LE Venous Duplex Patient Name:Savana Mathur Order Number:[id number] Procedure Date:11/12/2016 Date:1975Age:41 yrs Gender:Female Location:[facility] ED Room #: ER22 Water Pollution Specialist:Carmelina Mcbride RDCS Referring MD:Tyler Armstrong MD senior technical support engineer:Bridget Romero, CLOTH WINDER Reading MD:Karel Thakur MD , FACS Primary Indications:Pain in limb Secondary Indications: Risk Factors Yes/No Hx of DVT Yes Impressions: Lower extremity abnormal deep exam: right iliac through popliteal vein demonstrates acute thrombosis. Left lower extremity: normal contralateral exam. Lower extremity abnormal superficial exam: left great saphenousvein demonstrates acute thrombosis. Recommendations: Test completed on 11/12/2016 at 4:07:00 pm. Critical findings reported to Dr Armstrong in person at 4:10:00 pm on 11/12/2016 by Carmelina Mcbride RDCS. Findings Venous Duplex Results: Right: Venous imaging of the lower extremity reveals full patency and normal vessel compressibility of the right posterior tibial, right peroneal, right great saphenous and right lesser saphenous. Doppler signals in the evaluated veins were normal. There is an acute occlusive thrombus seen in the right distal iliac. It demonstrates an incompressible vein. Flow was absent and it did not augment. There is a chronic occlusive thrombus seen in the right common femoral. It demonstrates an incompressible vein. Flow was absent and it did not augment. There is an acute occlusive thrombus seen in the right superficial femoral. It demonstrates an incompressible vein. Flow was absent and it did not augment. There is an acute occlusive thrombus seen in the right popliteal. It demonstrates an incompressible vein. Flow was absent and it did not augment. Left: Venous imaging of the lower extremity reveals full patency and normal vessel compressibility of the left common femoral. Doppler signals in the evaluated veins were normal. There is an acute occlusive thrombus seen in the left great saphenous. Prior Study: No prior study available for comparison. Lower Extremity Venous Duplex Side Vein Compress Spontaneous Flow Augment Diameter (cm) Depth (cm) Right Distal Iliac None no Absent no Right Common Femoral None no Absent no Right Superficial Femoral None no Absent no Right Popliteal None no Absent no Right Posterior Tibial Normal Yes Phasic Yes Right Peroneal Normal Yes Phasic Yes Right Great Saphenous Normal Yes Phasic Yes Right Lesser Saphenous Normal Yes Phasic Yes Left Common Femoral Normal Yes Phasic Yes Left Great Saphenous None no Absent no Updated by Karel Thakur MD, FACS on 11/12/2016 5:20:32 PM Karel Thakur MD electronically signed on 11/12/2016 5:21:09 PM with status of Final
[2016-11-12 17:47] LABS: Basophils # 0.1 K/mcL (0.0-0.2); Basophils % 0.4 %; Eosinophils # 0.2 K/mcL (0.0-0.6); Eosinophils % 1.4 %; Hematocrit 30.4 % (35.3-44.9); Hemoglobin 9.7 g/dL (11.5-15.4); Immature Granulocytes % 1.1 % (0-4); Lymphocytes # 1.3 K/mcL (0.6-4.6); Lymphocytes % 9.9 %; Mean Corpuscular HGB Conc 31.9 g/dL (31.6-35.5); Mean Corpuscular Hemoglobin 27.6 pg (28.0-33.3); Mean Corpuscular Volume 86.6 fL (83.0-100.0); Mean Platelet Volume 9.9 fL (9.4-12.4); Monocytes # 0.8 K/mcL (0.0-1.3); Monocytes % 6.2 %; Neutrophils # 10.8 K/mcL (1.6-8.9); Platelet Count 184 K/mcL (140-400); Red Blood Count 3.51 M/mcL (3.82-4.97); Red Cell Distribution Width 14.6 % (11.5-14.5)
[2016-11-12 17:51] LABS: INR 1.2; Prothrombin Time 12.7 Seconds (9.4-12.1)
[2016-11-12 17:53] LABS: Activated Partial Thrombo Time 21.3 Seconds (26.0-36.0)
[2016-11-12 17:53] LABS: Alanine Aminotransferase 13 Units/L (0-55); Albumin 3.5 g/dL (3.5-5.0); Albumin/Globulin Ratio 0.8 (1.1-2.2); Alkaline Phosphatase 88 Units/L (38-126); Aspartate Amino Transferase 13 Units/L (5-34); BUN/Creatinine Ratio 16 (6-26); Bilirubin,Direct 0.3 mg/dL (0.0-0.5); Bilirubin,Indirect 0.4 mg/dL (0.0-1.2); Bilirubin,Total 0.7 mg/dL (0.2-1.2); Blood Urea Nitrogen 13 mg/dL (7-20); C-Reactive Protein 126 mg/L (Less than 5); Calcium 8.9 mg/dL (8.6-10.8); Carbon Dioxide 19 mEq/L (19-29); Chloride 104 mEq/L (98-109); Globulin 4.3 g/dL (2.4-3.5); Glucose 90 mg/dL (70-99); Lipase 44 Units/L (8-78); Osmolality,Calculated 280 (280-300); Sodium 135 mEq/L (136-145); Total Protein 7.8 g/dL (6.0-8.3); eGFR For African Americans > 60 (> 60); eGFR For Non-African Americans > 60 (> 60)
[2016-11-12] MEDS ORDERED: Lidocaine -MPF 1% 2 ML VIAL ID PRN (18:31)
[2016-11-12] MEDS ORDERED: Ondansetron 4 MG/2 ML VIAL IVP ONE (18:39)
[2016-11-12] MEDS ORDERED: *HR* HYDROmorphone (PF) 1 MG/ML SYRINGE IVP ONE (18:39)
[2016-11-12] MEDS ORDERED: Aspirin 325 MG TABLET PO ONE (18:40)
[2016-11-12] MEDS ORDERED: Ondansetron 4 MG/2 ML VIAL IVP PRN (19:24)
[2016-11-12] MEDS ORDERED: Acetaminophen 325 MG TABLET PO PRN (19:24)
[2016-11-12] MEDS ORDERED: Naloxone 0.4 MG/ML INJ IVP PRN (19:24)
--- NOTE | 2016-11-12 19:30 | Internal Med History&Physical ---
<Adrianne Santiago - Last Filed: 11/12/16 20:51> Date of Encounter: 11/12/16 Time of Encounter: 19:00 Assessment and Plan (1) Deep vein thrombosis of lower extremity Current visit: Yes Status: Acute 1 patient has been experiencing right lower extremity pain and swelling. She has been postoperatively and is morbidly obese. She has past history of PEs is not on any anticoagulation due to vaginal bleeding requiring blood transfusion. Lower extremity venous duplex confirmed presence of acute thrombus in right and left legs. We will initiate heparin drip and monitor CBC PTT. Monitor for any signs or symptoms of bleeding, administer vitamin K as needed . Patient will require discussion concerning long-term anticoagulation after discharge. Qualifiers: Affected thrombotic vein of extremity: iliac Laterality: bilateral Chronicity: acute Qualified Code(s): I82.423 - Acute embolism and thrombosis of iliac vein, bilateral (2) HTN (hypertension) Current visit: No Status: Chronic Presently controlled with continue with atenolol Qualifiers: Hypertension type: essential hypertension Qualified Code(s): I10 - Essential (primary) hypertension (3) History of pulmonary embolism Current visit: No Status: Chronic 1 presently denies any chest pain or shortness of breath patient does have a [place] filter. Internal Medicine - H&P: HPI Chief complaint: R leg pain swelling Admitted From: Home Plans for Post Hospital Care: Home History of present illness: Ms. Mathur is a 41 year old female past history of hypertension, tachycardia, PE , IVC filter placement knee placement. Patient has past history of PE with [place] filter placement. She was anticoagulated with Xarelto however she did develop vaginal bleeding requiring blood transfusions as well as D&C. She was taken off Xeralto approximately one year ago. She had recent right shoulder arthroscope completed earlier in October. She had been doing well first 2 days postoperatively however after 2 days she developed excruciating shoulder pain as well as chest pain and was admitted to this hospital for chest pain. She was evaluated and had a negative workup with a negative CT and V/Q scan she was then discharged. After discharge she began to experience right lower extremity pain and swelling denies trauma to the area. She denies any fever numbness tingling or weakness to extremities. She does experience intermittent chest pain which is not associated with exertion. She has been experiencing increasing anxiety related to concerns of DVT and PE. She denies any cough hemoptysis or shortness of breath syncope. She presented to the ER for further workup and evaluation. Laboratory workup was unremarkable Venous Dopplers of lower extremities did reveal an acute occlusive thrombus in the right distal iliac. An acute occlusive thrombus in the right superficial femoral. Acute occlusive thrombus in the right popliteal. As well as an acute occlusive thrombus in the left great saphenous. Patient was given pain medication has been admitted for further workup. Presently patient states that her right leg is painful she is teary-eyed requesting pain medication. She denies any chest pain or shortness of breath. At this time she is hemodynamically stable.I reviewed this case with Dr Darling who agrees with plan Past Med Surg Social Fam HX - Past Medical History Medical history: arthritis, GERD, hypertension, osteoporosis, pulmonary embolus , other Psychiatric history: no psych history - Past Surgical History Surgical History: knee replacement, orthopedic, other, other (IVC filter placement. Dilatation and curettage procedure.), arthroscopy - Social History Smoking Status: Never smoker Smokeless Tobacco Status: No Alcohol use: none Drug use: none - Family History Father Hx Family Cardiac Disorders: Yes (HTN) Hx Family Endocrine Disorder: Yes (DIABETES MELLITUS.) Mother History Unknown: Yes Adopted: [place]: mari kang Living Status: Still Living Hx Family Cardiac Disorders: Yes (htn) Internal Medicine - H&P: Meds Atenolol 100 mg PO DAILY 10/26/15 [History] Allergies sulfamethoxazole [From Bactrim] Allergy (Verified 11/07/16 14:44) Itching trimethoprim [From Bactrim] Allergy (Verified 11/07/16 14:44) Itching divalproex sodium [From Depakote] Adverse Reaction (Verified 11/07/16 14:44) Hallucinating sumatriptan [From Imitrex] Adverse Reaction (Verified 11/07/16 14:44) Cramping of the Muscles All Systems PM: A 10-system review of systems was performed and is negative for pertinent findings except as documented above in the HPI. - Constitutional Constitutional: no chills, no fever(s), no night sweats - Cardiovascular Cardiovascular ROS IM: chest pain - Respiratory Respiratory: no cough, no dyspnea, no wheezing, no excessive phlegm production - Gastrointestinal Gastrointestinal: no abdominal pain, no diarrhea, no hematemesis, no hematochezia, no melena, no nausea, no vomiting - Genitourinary Genitourinary: no change in urinary stream, no dysuria, no flank pain, no hematuria - Musculoskeletal Additional comments: Right shoulder joint pain - Integumentary Integumentary IM: no rash, no unusual bruising - Neurological Neurological ROS: no confusion, no convulsions, no focal weakness, no numbness, no tingling, no tremor(s) - Constitutional Vitals: Temp Pulse Resp BP Pulse Ox 96.5 F L 116 12 127/84 96 11/12/16 13:10 11/12/16 18:11 11/12/16 19:14 11/12/16 19:14 11/12/16 18:11 General appearance: Present: A&O X 3, morbidly obese, answers questions appropriately - Head Head exam: Present: atraumatic, normocephalic - Eye Eye exam: Present: PERRL, conjuntiva pink, sclera anicteric Pupils: Present: PERRL - Neck Neck exam general surgery: Present: supple, trachea midline. Absent: lymphadenopathy - Respiratory Respiratory exam: Present: CTAB. Absent: accessory muscle use, rales, rhonchi, wheezes - GI/Abdominal GI/Abdominal exam: Present: normal bowel sounds, soft, no peritoneal signs. Absent: distended, tenderness - Extremities Exam Extremities exam: Present: pedal edema, warm, radial pulses palpable and symetrical. Absent: calf tenderness, cyanotic Additional comments: Right leg with +1 pitting edema up to thigh - Neurological Exam Neurological exam: Present: CN II-XII intact, oriented X3, no focal deficits. Absent: pronater drift, facial droop, speech deficit - Skin Skin exam: Present: dry, intact Internal Med - H&P Results - Labs CBC & Chem 7: 11/12/16 17:30 11/12/16 17:37 - EKG Data EKG shows normal: sinus rhythm Rate: tachycardia - EKG Data Prior EKG available for review: yes When compared to previous EKG: there is no significant change - Diagnostic Studies Venous US Additional comments: Lower extremity venous duplex acute occlusive thrombus in the right distal iliac. Acute occlusive thrombus right superficial femoral. Acute occlusive thrombus seen in the right popliteal. Acute occlusive thrombus seen in the left great saphenous <Bear Machado R - Last Filed: 11/12/16 23:50> Date of Encounter: 11/12/16 Internal Medicine - H&P: HPI History of present illness: Ms. Mathur is a 41 year old female All Systems PM: A 10-system review of systems was performed and is negative for pertinent findings except as documented above in the HPI. - Constitutional Vitals: Temp Pulse Resp BP Pulse Ox 98.6 F 94 16 133/86 96 11/12/16 20:39 11/12/16 20:39 11/12/16 20:39 11/12/16 20:39 11/12/16 20:39 Internal Med - H&P Results - Labs CBC & Chem 7: 11/12/16 17:30 11/12/16 17:37 - Attending Attestation I examined this patient and my medical decision-making was reviewed with the MALT LOADER/PA/Advanced Practice Nurse/Resident Physician. I agree with the documented findings, disposition and treatment plan as described except to the extent set forth below. 41 Y/F with prior h/o PE (hematology w/u in [place], [place]) - did not tolerate warfarin well - had hair fall. Switched to xarelto - d/c'd due to significant vaginal bleeding. has g/o IVC filter. Recently she presented to the ER, with CP and was told that she had no PE. she presents with right lower extremity pain - imaging positive for acute occlusive thrombus in the right distal iliac, right superficial femoral and popliteal; chronic thrombus in the right CFV. will start anticoagulation with heparin infusion. She is concerned about the risk of bleeding. Explained that we can reverse heparin, if she has vaginal bleeding. Counseled her about the need for anticoagulation at this time. She is contemplating hysterectomy for vaginal bleeding.
[2016-11-12] MEDS ORDERED: *HR* Heparin 5,000 UNIT/ML VIAL IVP PRN ×2 (20:28)
[2016-11-12] MEDS ORDERED: *HR* Heparin 5,000 UNIT/ML VIAL IVP ONE (20:28)
[2016-11-12] MEDS ORDERED: Heparin 25,000 UNIT/500 ML D5W 25,000 UNIT/500 ML MLS IVC SCH (20:30)
[2016-11-12] MEDS: *HR* Morphine 2 MG/ML SYRINGE IVP PRN (21:37)
[2016-11-12] MEDS: *HR* HYDROcodone/Acet 5/325 mg TABLET PO PRN (22:42)
[2016-11-13] MEDS: *HR* Morphine 2 MG/ML SYRINGE IVP PRN (01:36)
[2016-11-13] MEDS ORDERED: *HR* OxyCODONE Immed Rel 5 MG TABLET PO ONE (03:42)
[2016-11-13 05:11] LABS: Basophils % 0.3 %; Eosinophils # 0.4 K/mcL (0.0-0.6); Hematocrit 28.7 % (35.3-44.9); Hemoglobin 9.3 g/dL (11.5-15.4); Immature Granulocytes % 1.8 % (0-4); Lymphocytes # 2.1 K/mcL (0.6-4.6); Mean Corpuscular HGB Conc 32.4 g/dL (31.6-35.5); Mean Corpuscular Hemoglobin 27.9 pg (28.0-33.3); Mean Corpuscular Volume 86.2 fL (83.0-100.0); Monocytes # 1.1 K/mcL (0.0-1.3); Monocytes % 8.7 %; Neutrophils # 8.4 K/mcL (1.6-8.9); Platelet Count 173 K/mcL (140-400); Red Blood Count 3.33 M/mcL (3.82-4.97); Red Cell Distribution Width 14.6 % (11.5-14.5); Segmented Neutrophils % 69.2 %
[2016-11-13 05:22] LABS: BUN/Creatinine Ratio 19 (6-26); Blood Urea Nitrogen 14 mg/dL (7-20); Calcium 8.6 mg/dL (8.6-10.8); Carbon Dioxide 16 mEq/L (19-29); Chloride 105 mEq/L (98-109); Glucose 88 mg/dL (70-99); Osmolality,Calculated 278 (280-300); Sodium 134 mEq/L (136-145); eGFR For African Americans > 60 (> 60); eGFR For Non-African Americans > 60 (> 60)
[2016-11-13 06:37] VITALS: BP 109/66
[2016-11-13] MEDS: *HR* HYDROcodone/Acet 5/325 mg TABLET PO PRN (09:22)
[2016-11-13] MEDS ORDERED: *HR* Rivaroxaban 15 MG TABLET PO SCH (09:45)
--- NOTE | 2016-11-13 09:45 | Discharge Summary ---
Date of Encounter: 11/13/16 Time of Encounter: 09:39 - Discharge Diagnosis (1) Deep vein thrombosis of lower extremity Priority: Primary Status: Acute Qualifiers: Affected thrombotic vein of extremity: iliac Laterality: bilateral Chronicity: acute Qualified Code(s): I82.423 - Acute embolism and thrombosis of iliac vein, bilateral (2) Obesity Priority: Secondary Status: Acute Qualifiers: Obesity type: unspecified obesity type Obesity severity: unspecified obesity severity Qualified Code(s): E66.9 - Obesity, unspecified - Discharge Medications Prescriptions: Oxycodone HCl/Acetaminophen [Percocet 5-325 mg Tablet] 1 each PO Q6H #20 tablet Rivaroxaban [Xarelto] 15 mg PO BID 21 Days Rivaroxaban [Xarelto] 20 mg PO DAILY 9 Days Home Medications: Atenolol 100 mg PO DAILY 10/26/15 [History] Oxycodone HCl/Acetaminophen [Percocet 5-325 mg Tablet] 1 each PO Q6H #20 tablet 11/13/16 [Rx] Rivaroxaban [Xarelto] 15 mg PO BID 21 Days 11/13/16 [Rx] Rivaroxaban [Xarelto] 20 mg PO DAILY 9 Days 11/13/16 [Rx] Allergies/Adverse Reactions: Allergies sulfamethoxazole [From Bactrim] Allergy (Verified 11/07/16 14:44) Itching trimethoprim [From Bactrim] Allergy (Verified 11/07/16 14:44) Itching divalproex sodium [From Depakote] Adverse Reaction (Verified 11/07/16 14:44) Hallucinating sumatriptan [From Imitrex] Adverse Reaction (Verified 11/07/16 14:44) Cramping of the Muscles Date of admission: 11/12/16 22:06 Primary care physician: Bridget Romero, Discharging clinician: Ion Olea Anticipated date of discharge: 11/13/16 - Patient Status Disposition: Home, Self-Care Condition: Fair Functional capacity at discharge: independent ambulation Overall status at discharge: patient is back to baseline - Discharge Instructions Instructions: Deep Venous Thrombosis (DC) Follow Up With: Bridget Romero, ORALIA [Primary Care Provider] - Additional Instructions: follow up with hematology for continuity of anticoagulation. - Diet and Activity Activity: increase activity as tolerated Diet: advance to your usual diet Interval History: Ms. Mathur is a 41 year old female past history of hypertension, tachycardia, PE , IVC filter placement knee placement. Patient has past history of PE with [place] filter placement. She was anticoagulated with Xarelto however she did develop vaginal bleeding requiring blood transfusions as well as D&C. She was taken off Xeralto approximately one year ago. She had recent right shoulder arthroscope completed earlier in October. She had been doing well first 2 days postoperatively however after 2 days she developed excruciating shoulder pain as well as chest pain and was admitted to this hospital for chest pain. She was evaluated and had a negative workup with a negative CT and V/Q scan she was then discharged. After discharge she began to experience right lower extremity pain and swelling denies trauma to the area. She denies any fever numbness tingling or weakness to extremities. She does experience intermittent chest pain which is not associated with exertion. She has been experiencing increasing anxiety related to concerns of DVT and PE. She denies any cough hemoptysis or shortness of breath syncope. She presented to the ER for further workup and evaluation. Laboratory workup was unremarkable Venous Dopplers of lower extremities did reveal an acute occlusive thrombus in the right distal iliac. An acute occlusive thrombus in the right superficial femoral. Acute occlusive thrombus in the right popliteal. As well as an acute occlusive thrombus in the left great saphenous. Patient was given pain medication has been admitted for further workup. Presently patient states that her right leg is painful she is teary-eyed requesting pain medication. She denies any chest pain or shortness of breath. At this time she is hemodynamically stable.I reviewed this case with Dr Darling who agrees with plan Hospital course: Ms. Mathur is a 41 year old female admitted due to an acute deep venous thrombosis of lower extremity. The patient has history of multiple embolic events including pulmonary embolism and has been on anti-coagulation in the past. She also also have an IVC filter placed. At this point, there was no IV access. Patient was seen and examined during rounds, she is stable. She does not have an IV access and has had deep venous thrombosis. At this point, we will start the patient on xarelto, would provide pain control medications. Patient will be discharged home today, she will continue with anticoagulation and will follow up as outpatient with hematology. She will benefit from termite treater anticoagulation. The patient was explained in detail about the plan, she expressed understanding. - Time Spent with Patient Total time spent providing and/or coordinating discharge services: Greater than 30 minutes - Constitutional Vitals: Temp Pulse Resp BP Pulse Ox 98.0 F 80 16 109/66 98 11/13/16 06:32 11/13/16 06:32 11/13/16 06:32 11/13/16 06:32 11/13/16 06:32 General appearance: Present: A&O X 3, morbidly obese, answers questions appropriately - Head Head exam: Present: atraumatic, normocephalic - Eye Eye exam: Present: PERRL, conjuntiva pink, sclera anicteric Pupils: Present: PERRL - Neck Neck exam general surgery: Present: supple, trachea midline. Absent: lymphadenopathy - Respiratory Respiratory exam: Present: CTAB. Absent: accessory muscle use, rales, rhonchi, wheezes - Cardiovascular Cardiovascular exam: Present: RRR, +S1, +S2. Absent: diastolic murmur, gallop, rubs, systolic murmur - GI/Abdominal GI/Abdominal exam: Present: normal bowel sounds, soft, no peritoneal signs. Absent: distended, tenderness - Extremities Exam Extremities exam: Present: warm, radial pulses palpable and symetrical. Absent : calf tenderness, cyanotic, pedal edema - Neurological Exam Neurological exam: Present: CN II-XII intact, oriented X3, no focal deficits. Absent: pronater drift, facial droop, speech deficit - Skin Skin exam: Present: dry, intact
--- NOTE | 2016-11-13 16:20 | Electrocardiograph Report ---
[facility] Test Date: 2016-11-12 Pat Name: Savana Mathur Department: 104 Room: 3A33 Gender: F Wound Treatment Rn: : 1975 Requested By: Tyler Armstrong Order Number: [id number] Reading MD: Celso Wilkinson DO Measurements Intervals [place] Rate: 109 P: 15 MS: 156 QRS: -2 QRSD: 77 T: 30 QT: 322 QTc: 386 Interpretive Statements SINUS TACHYCARDIA Electronically Signed On 11-13-16 16:17:09 EST by Celso Wilkinson DO
== END 2016-11-13 11:38 | disposition home or self-care (01) | DRG 300 ==
LOC: EMEROO 13:01 → 3ANU 13:01
PROVIDERS: ADMIT Internal Medicine; ATTEND Internal Medicine

== ENCOUNTER 2016-12-01 11:51 | Inpatient (IN) ==
--- NOTE | 2016-12-01 15:16 | Emergency Department Note ---
Disposition Clinical Impression: Anemia, Vaginal bleeding Disposition: Admitted As Inpatient Condition: Good General Adult HPI - General Chief complaint: ED Vaginal Bleeding Stated complaint: "a lot of bleeding", on thinners Time Seen by Provider: 12/01/16 15:14 Source: patient, family Limitations: no limitations - History of Present Illness Pain Scale: 7 - Related Data Home Medications Medication Instructions Recorded Confirmed Atenolol 100 mg PO DAILY 10/26/15 12/01/16 Previous Rx's Medication Instructions Recorded Rivaroxaban [Xarelto] 15 mg PO BID #22 tablet 11/17/16 Allergies Allergy/AdvReac Type Severity Reaction Status Date / Time sulfamethoxazole Allergy Rash Verified 12/01/16 17:01 [From Bactrim] trimethoprim [From Bactrim] Allergy Rash Verified 12/01/16 17:01 divalproex sodium AdvReac Hallucinati Verified 12/01/16 12:11 [From Depakote] ng sumatriptan [From Imitrex] AdvReac Chest Verified 12/01/16 17:01 Pain/Shortness Of Breath Past Medical History - Past Medical History Medical history: Reports: arthritis, DVT, GERD, hypertension, osteoporosis, pulmonary embolus, other Surgical history: Reports: knee replacement, orthopedic, other, other (IVC filter placement. Dilatation and curettage procedure.), arthroscopy Psychiatric history: Reports: no psych history - Social History Smoking Status: Never smoker Smokeless Tobacco Status: No Alcohol use: Reports: none Drug use: Reports: none Physical Exam - General Limitations: no limitations General appearance: alert Course Vital Signs Temperature 98.1 F 12/01/16 12:07 Pulse Rate 97 12/01/16 12:07 Respiratory Rate 17 12/01/16 12:07 Blood Pressure 161/102 12/01/16 12:07 O2 Sat by Pulse Oximetry 96 12/01/16 12:07 Temperature 98.3 F 12/01/16 20:58 Pulse Rate 84 12/01/16 20:58 Respiratory Rate 16 12/01/16 20:58 Blood Pressure 153/96 12/01/16 20:58 O2 Sat by Pulse Oximetry 95 12/01/16 20:58 Oxygen Delivery Oxygen Delivery Room Air Medical Decision Making - Lab Data Result diagrams: 12/01/16 23:36 12/01/16 16:17 Lab Results 12/01/16 12/01/1617 Range/Units 16:17 16:17 16:17 WBC 7.1 (4.3-11.1) K/mcL RBC 3.27 L (3.82-4.97) M/mcL Hgb 8.8 L (11.5-15.4) g/dL Hct 29.4 L (35.3-44.9) % MCV 89.9 (83.0-100.0) fL MCH 26.9 L (28.0-33.3) pg MCHC 29.9 L (31.6-35.5) g/dL RDW 15.9 H (11.5-14.5) % Plt Count 264 (140-400) K/mcL MPV 9.4 (9.4-12.4) fL Immature Gran % 0.6 (0-4) % Seg Neutrophils % 67.9 % Lymphocytes % 20.9 % Monocytes % 6.9 % Eosinophils % 3.1 % Basophils % 0.6 % Neutrophils # 4.8 (1.6-8.9) K/mcL Lymphocytes # 1.5 (0.6-4.6) K/mcL Monocytes # 0.5 (0.0-1.3) K/mcL Eosinophils # 0.2 (0.0-0.6) K/mcL Basophils # 0.0 (0.0-0.2) K/mcL Immature Plt Fraction 2.0 (1.1-6.1) % PT 24.7 H (9.4-12.1) Seconds INR 2.2 APTT 37.4 H (26.0-36.0) Seconds Sodium 140 (136-145) mEq/L Potassium 4.4 (3.5-4.5) mEq/L Chloride 106 (98-109) mEq/L Carbon Dioxide 22 (19-29) mEq/L BUN 11 (7-20) mg/dL Creatinine 1.04 (0.57-1.11) mg/dL Est GFR ( Amer) > 60 (> 60) Est GFR (Non-Af Amer) 58 L (> 60) BUN/Creatinine Ratio 11 (6-26) Glucose 85 (70-99) mg/dL Calculated Osmolality 289 (280-300) Calcium 9.2 (8.6-10.8) mg/dL Serum , Qual (Negative) Blood Type Antibody Screen 12/01/16 12/01/16 Range/Units 16:17 16:17 WBC (4.3-11.1) K/mcL RBC (3.82-4.97) M/mcL Hgb (11.5-15.4) g/dL Hct (35.3-44.9) % MCV (83.0-100.0) fL MCH (28.0-33.3) pg MCHC (31.6-35.5) g/dL RDW (11.5-14.5) % Plt Count (140-400) K/mcL MPV (9.4-12.4) fL Immature Gran % (0-4) % Seg Neutrophils % % Lymphocytes % % Monocytes % % Eosinophils % % Basophils % % Neutrophils # (1.6-8.9) K/mcL Lymphocytes # (0.6-4.6) K/mcL Monocytes # (0.0-1.3) K/mcL Eosinophils # (0.0-0.6) K/mcL Basophils # (0.0-0.2) K/mcL Immature Plt Fraction (1.1-6.1) % PT (9.4-12.1) Seconds INR APTT (26.0-36.0) Seconds Sodium (136-145) mEq/L Potassium (3.5-4.5) mEq/L Chloride (98-109) mEq/L Carbon Dioxide (19-29) mEq/L BUN (7-20) mg/dL Creatinine (0.57-1.11) mg/dL Est GFR ( Amer) (> 60) Est GFR (Non-Af Amer) (> 60) BUN/Creatinine Ratio (6-26) Glucose (70-99) mg/dL Calculated Osmolality (280-300) Calcium (8.6-10.8) mg/dL Serum , Qual Negative (Negative) Blood Type A POSITIVE Antibody Screen NEGATIVE Critical Care Time Critical Care Time: Yes Total Critical Care Time: 45 Attestation: Patient presented with vaginal bleeding requiring [id number] consultation with the donor recruitment manager and telephone consultation with the fermenter wine. Central line placed by the resident physician under my supervision. Patient admitted to the medicine service Attestation Statement - Attestation Attestation: I examined this patient and my medical decision-making was reviewed with the AUDIT SPEC/PA/Advanced Practice Nurse/Resident Physician. I agree with the documented findings, disposition and treatment plan as described except to the extent set forth below. Qteg-up-scec time provided Patient ambulates to the treatment area complaining of vaginal bleeding. She takes xarelto for a DVT. She was sent at the recommendation of her fermenter wine. h/o blood transfusions in the past. Pale-appearing. legs edematous. mild visible dyspnea.
--- NOTE | 2016-12-01 16:13 | Emergency Department Note ---
Disposition Clinical Impression: Vaginal bleeding Anemia Qualifiers: Anemia type: unspecified type Qualified Code(s): D64.9 - Anemia, unspecified Disposition: Admitted As Inpatient Condition: Good Time of Disposition: 21:21 General Adult HPI - General Chief complaint: ED Vaginal Bleeding Stated complaint: "a lot of bleeding", on thinners Time Seen by Provider: 12/01/16 15:14 Source: patient, family Limitations: no limitations Nursing Notes Reviewed: Yes Vital Signs Reviewed: Yes - History of Present Illness HPI Narrative: Female patient presenting emergency department with 4 weeks vaginal bleeding. She states that she was on her period and then 1 week later started Xarelto. She states that she has not stopped bleeding since then. She states she is going through a pad and tampon every 3 hours. 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 A recent DVT is why she was placed on Xaralto 3 weeks ago. She was seen at the hematology clinic today and found to have a hemoglobin of 9.0. On November 07 her hemoglobin was 12.2. Passively during conversation she states she has had an increase in exertional dyspnea over the past 2 weeks. Also had a weight gain of 20 pounds over the past 2 weeks. She states even after walking 10 feet she gets short of breath and has a heaviness on her chest. She denies any shortness of breath or chest pain while resting. Pain Scale: 7 - Related Data Home Medications Medication Instructions Recorded Confirmed Atenolol 100 mg PO DAILY 10/26/15 12/01/16 Previous Rx's Medication Instructions Recorded Rivaroxaban [Xarelto] 15 mg PO BID #22 tablet 11/17/16 Allergies Allergy/AdvReac Type Severity Reaction Status Date / Time sulfamethoxazole Allergy Rash Verified 12/01/16 17:01 [From Bactrim] trimethoprim [From Bactrim] Allergy Rash Verified 12/01/16 17:01 divalproex sodium AdvReac Hallucinati Verified 12/01/16 12:11 [From Depakote] ng sumatriptan [From Imitrex] AdvReac Chest Verified 12/01/16 17:01 Pain/Shortness Of Breath Review of Systems: Patient reports increased weakness over the past 4 weeks. She states she has had vaginal bleeding for the past 4 weeks. She is going through a tampon and pad every 3 hours. She is also complaining of exertional dyspnea and heaviness feeling whenever she walks more than 10 feet. She is also complaining of an increase in weight of 20 pounds acutely she is holding her legs. She denies any nausea vomiting or diarrhea. She denies any urinary symptoms. All systems ED: reviewed and negative except as stated. Constitutional: Reports: chills, weight change (20 lb weight gain over the past 2 weeks). Denies: fever Past Medical History - Past Medical History Medical history: Reports: arthritis, DVT, GERD, hypertension, osteoporosis, pulmonary embolus, other Surgical history: Reports: knee replacement, orthopedic, other, other (IVC filter placement. Dilatation and curettage procedure.), arthroscopy Psychiatric history: Reports: no psych history - Social History Smoking Status: Never smoker Smokeless Tobacco Status: No Alcohol use: Reports: none Drug use: Reports: none Physical Exam - General Limitations: no limitations General appearance: alert, in no apparent distress - Head Head exam: atraumatic, normocephalic, normal inspection - Eye Eye exam: Present: normal appearance, PERRL, EOMI. Absent: scleral icterus - ENT ENT exam: normal exam, normal oropharynx, mucous membranes moist - Neck Neck exam: Present: normal inspection, full ROM, trachea midline - Chest Chest inspection: Present: normal inspection, symmetric chest wall rise - Respiratory Respiratory exam: Present: normal lung sounds bilaterally. Absent: respiratory distress - Cardiovascular Cardiovascular exam: Present: regular rate, normal rhythm, normal heart sounds - Abdominal Exam Abdominal exam: Present: soft, Non-Tender, other (Morbidly obese). Absent: tenderness, distention, guarding, rebound, rigidity - Extremities Exam Extremities exam: Present: normal inspection, full ROM, other (Bilateral edema from feet to hips.). Absent: tenderness - Back Exam Back exam: Present: normal inspection, full ROM. Absent: tenderness, CVA tenderness (R), CVA tenderness (L) - Neurological Exam Neurological exam: Present: alert, oriented X3 - Psychiatric Psychiatric exam: Present: normal affect, normal mood - Skin Skin exam: Present: warm, dry, intact, normal color Course Course Narrative: Well-appearing severely obese patient found resting comfortably in bed. She is complaining of vaginal bleeding that has been going on for 4 weeks. Sates that she was on her period and for 1 week and then started to run so. She states that she has subsequently never stopped her vaginal bleeding. She states she is going through one tampon and one pad every 3 hours. She was seen at the hematology clinic today and found to have hemoglobin of 9. She was then sent to the emergency department. Here her hemoglobin was found to be 8.8. She has exertional dyspnea as well as a heaviness to her chest whenever she is walking. She denies any shortness of breath or chest pain at this time. An IV cannot be established on patient. We will admit patient due to her symptomatic anemia. We have consulted OB and hematology. We have also placed a central line for IV access. - Consultations Consultation #1: Spoke with Dr García. He is coming to see the Pt. Time: 17:42 Vital Signs Temperature 98.1 F 12/01/16 12:07 Pulse Rate 97 12/01/16 12:07 Respiratory Rate 17 12/01/16 12:07 Blood Pressure 161/102 12/01/16 12:07 O2 Sat by Pulse Oximetry 96 12/01/16 12:07 Temperature 98.3 F 12/01/16 20:58 Pulse Rate 84 12/01/16 20:58 Respiratory Rate 16 12/01/16 20:58 Blood Pressure 153/96 12/01/16 20:58 O2 Sat by Pulse Oximetry 95 12/01/16 20:58 Oxygen Delivery Oxygen Delivery Room Air Procedures - Central Line Placement Right IJ Central Line Inserted*: Yes Central Line Catheter Replacement*: No Central Line Insertion: emergent Consent Obtained: written consent Procedural Pause: verify patient name and date of , timeout performed per policy, joanna and assess the site, assemble equipment and verify supplies, perform hand hygiene During the Procedure: clinician is wearing sterile gloves, cap, mask,& gown during insertion, sterile field and sterile technique are maintained, patient's face is covered with drape or mask and wearing a cap, everyone in room is wearing a mask Central Line Prep: Chlorhexidine scrub Prep the Procedure Site: apply chloraprep to the skin using a back and forth scrubbing motion, apply chloraprep for 30 seconds (upper body), 1-2 min ( femoral sites), allow prep to dry, drape the patient with a full body drape Local Anesthetic: lidocaine 1% Amount of anesthesia used (mL): 5 Ultrasound Used for Placement: Yes Central Line Lumen Inserted: triple Post Procedure: sutured in place, good blood return, all ports aspirated, flushed, capped, sterile dressing applied, guide wire removed and visualized Post Procedure X-Ray: tip of catheter in good position, no pneumothorax seen Patient Tolerated Procedure: well Complications: none Name of Clinician Inserting Central Line: Dr Francisco Thompson Clinician Assisting/Completing Checklist: Dr Melania Krishna Date: 12/01/16 Time: 21:19 Medical Decision Making - Medical Records Medical records reviewed: Yes I reviewed the patient's medical records. - Lab Data Lab results reviewed: Yes I reviewed the patient's lab results. Result diagrams: 12/01/16 16:17 12/01/16 16:17 Lab Results 12/01/16 12/01/16 12/01/16 Range/Units 16:17 16:17 16:17 WBC 7.1 (4.3-11.1) K/mcL RBC 3.27 L (3.82-4.97) M/mcL Hgb 8.8 L (11.5-15.4) g/dL Hct 29.4 L (35.3-44.9) % MCV 89.9 (83.0-100.0) fL MCH 26.9 L (28.0-33.3) pg MCHC 29.9 L (31.6-35.5) g/dL RDW 15.9 H (11.5-14.5) % Plt Count 264 (140-400) K/mcL MPV 9.4 (9.4-12.4) fL Immature Gran % 0.6 (0-4) % Seg Neutrophils % 67.9 % Lymphocytes % 20.9 % Monocytes % 6.9 % Eosinophils % 3.1 % Basophils % 0.6 % Neutrophils # 4.8 (1.6-8.9) K/mcL Lymphocytes # 1.5 (0.6-4.6) K/mcL Monocytes # 0.5 (0.0-1.3) K/mcL Eosinophils # 0.2 (0.0-0.6) K/mcL Basophils # 0.0 (0.0-0.2) K/mcL Immature Plt Fraction 2.0 (1.1-6.1) % PT 24.7 H (9.4-12.1) Seconds INR 2.2 APTT 37.4 H (26.0-36.0) Seconds Sodium 140 (136-145) mEq/L Potassium 4.4 (3.5-4.5) mEq/L Chloride 106 (98-109) mEq/L Carbon Dioxide 22 (19-29) mEq/L BUN 11 (7-20) mg/dL Creatinine 1.04 (0.57-1.11) mg/dL Est GFR ( Amer) > 60 (> 60) Est GFR (Non-Af Amer) 58 L (> 60) BUN/Creatinine Ratio 11 (6-26) Glucose 85 (70-99) mg/dL Calculated Osmolality 289 (280-300) Calcium 9.2 (8.6-10.8) mg/dL Serum , Qual (Negative) Blood Type Antibody Screen 12/01/16 12/01/16 Range/Units 16:17 16:17 WBC (4.3-11.1) K/mcL RBC (3.82-4.97) M/mcL Hgb (11.5-15.4) g/dL Hct (35.3-44.9) % MCV (83.0-100.0) fL MCH (28.0-33.3) pg MCHC (31.6-35.5) g/dL RDW (11.5-14.5) % Plt Count (140-400) K/mcL MPV (9.4-12.4) fL Immature Gran % (0-4) % Seg Neutrophils % % Lymphocytes % % Monocytes % % Eosinophils % % Basophils % % Neutrophils # (1.6-8.9) K/mcL Lymphocytes # (0.6-4.6) K/mcL Monocytes # (0.0-1.3) K/mcL Eosinophils # (0.0-0.6) K/mcL Basophils # (0.0-0.2) K/mcL Immature Plt Fraction (1.1-6.1) % PT (9.4-12.1) Seconds INR APTT (26.0-36.0) Seconds Sodium (136-145) mEq/L Potassium (3.5-4.5) mEq/L Chloride (98-109) mEq/L Carbon Dioxide (19-29) mEq/L BUN (7-20) mg/dL Creatinine (0.57-1.11) mg/dL Est GFR ( Amer) (> 60) Est GFR (Non-Af Amer) (> 60) BUN/Creatinine Ratio (6-26) Glucose (70-99) mg/dL Calculated Osmolality (280-300) Calcium (8.6-10.8) mg/dL Serum , Qual Negative (Negative) Blood Type A POSITIVE Antibody Screen NEGATIVE - Radiology Data Radiology results reviewed: Yes I reviewed the patient's radiology results.
[2016-12-01 16:27] LABS: Basophils % 0.6 %; Eosinophils # 0.2 K/mcL (0.0-0.6); Eosinophils % 3.1 %; Hematocrit 29.4 % (35.3-44.9); Hemoglobin 8.8 g/dL (11.5-15.4); Immature Granulocytes % 0.6 % (0-4); Lymphocytes # 1.5 K/mcL (0.6-4.6); Lymphocytes % 20.9 %; Mean Corpuscular HGB Conc 29.9 g/dL (31.6-35.5); Mean Corpuscular Hemoglobin 26.9 pg (28.0-33.3); Mean Corpuscular Volume 89.9 fL (83.0-100.0); Mean Platelet Volume 9.4 fL (9.4-12.4); Monocytes # 0.5 K/mcL (0.0-1.3); Monocytes % 6.9 %; Neutrophils # 4.8 K/mcL (1.6-8.9); Platelet Count 264 K/mcL (140-400); Red Blood Count 3.27 M/mcL (3.82-4.97); Red Cell Distribution Width 15.9 % (11.5-14.5); Segmented Neutrophils % 67.9 %
[2016-12-01 16:34] LABS: INR 2.2; Prothrombin Time 24.7 Seconds (9.4-12.1)
[2016-12-01 16:36] LABS: Activated Partial Thrombo Time 37.4 Seconds (26.0-36.0)
[2016-12-01 16:42] LABS: BUN/Creatinine Ratio 11 (6-26); Blood Urea Nitrogen 11 mg/dL (7-20); Calcium 9.2 mg/dL (8.6-10.8); Carbon Dioxide 22 mEq/L (19-29); Chloride 106 mEq/L (98-109); Glucose 85 mg/dL (70-99); Osmolality,Calculated 289 (280-300); Potassium 4.4 mEq/L (3.5-4.5); Sodium 140 mEq/L (136-145); eGFR For African Americans > 60 (> 60); eGFR For Non-African Americans 58 (> 60)
[2016-12-01] MEDS ORDERED: *HR* LORazepam 1 MG TABLET PO ONE (18:11)
--- NOTE | 2016-12-01 19:22 | OB/GYN Consult Note ---
Date of Encounter: 12/02/16 Time of Encounter: 18:52 Assessment and Plan (1) Vaginal bleeding, abnormal Current Visit: Yes Status: Acute not candidate for medical management due to history of DVT and PE no active bleeding at this time monitor H/H and physical exam signs for further bleeding May need transfusion if becomes hemodynamically unstable or hemoglobin<7.0 consult to hematology D/c xarelto plan for ablation on will likely need hysterectomy in future (2) Anemia Current Visit: No Status: Acute likely from vaginal bleeding monitor H/H and physical signs for further bleeding stable at this time may need transfusion in hemoglobin <7.0 or pt becomes unstable Qualifiers: Anemia type: other cause Other causes of anemia: other cause, not classified Qualified Code(s): D64.89 - Other specified anemias (3) History of pulmonary embolism Current Visit: No Status: Chronic (4) Morbid obesity with BMI of 50.0-59.9, adult Current Visit: No Status: Chronic (5) Presence of IVC filter Current Visit: No Status: Chronic History of Present Illness Consult date: 12/01/16 Requesting physician: Melania Krishna Reason for consult: other (vaginal bleeding) Chief complaint: vaginal bleeding x4 weeks History of present illness: 41 yo F with PMHx of DVT, 2 PE placed on xarelto about 3 weeks ago c/o constant vaginal bleeding for past four weeks. Pt states she had her last period approximately 4 weeks ago, was placed on xarelto soon after and has not stopped bleeding since. Pt describes bleeding as no painful, continuous red blood with large clots that has been consistent throughout each day since 4 weeks ago. She states she has been going through one pad and a tampon approximately every 3 hours, without slowing or decrease in bleeding. Pt's measured hemoglobin was 9.0 today which was a decrease from the last measured hemoglobin of 12.2 back in October. Pt also complains of B/L LE edema and weight gain of about 20lbs and also states she has had some dsypnea on exertion which started about 2 weeks ago, that has slowly been worsening since onset. Pt denies CP, SOB at rest, no other complaints at this time. Past Med Surg Social Fam HX - Past Medical History Medical history: arthritis, DVT, GERD, hypertension, osteoporosis, pulmonary embolus, other Psychiatric history: no psych history - Past Surgical History Surgical History: knee replacement, orthopedic, other, other (IVC filter placement. Dilatation and curettage procedure.), arthroscopy - Social History Smoking Status: Never smoker Smokeless Tobacco Status: No Alcohol use: none Drug use: none - Family History Father Hx Family Cardiac Disorders: Yes (HTN) Hx Family Endocrine Disorder: Yes (DIABETES MELLITUS.) Mother Adopted: No Living Status: Still Living Hx Family Cardiac Disorders: Yes (htn) Medications and Allergies Atenolol 100 mg PO DAILY 10/26/15 [History] Rivaroxaban [Xarelto] 15 mg PO BID #22 tablet 11/17/16 [Rx] Allergies sulfamethoxazole [From Bactrim] Allergy (Verified 12/01/16 17:01) Rash trimethoprim [From Bactrim] Allergy (Verified 12/01/16 17:01) Rash divalproex sodium [From Depakote] Adverse Reaction (Verified 12/01/16 12:11) Hallucinating sumatriptan [From Imitrex] Adverse Reaction (Verified 12/01/16 17:01) Chest Pain/Shortness Of Breath Review of Systems Constitutional: as per HPI Cardiovascular: as per HPI Respiratory: as per HPI Gastrointestinal: as per HPI Genitourinary Female: as per HPI Menstruation: as per HPI Musculoskeletal: as per HPI Exam - Vital Signs Vital signs: Initial Vital Signs Temp Pulse Resp BP Pulse Ox 98.1 F 97 17 161/102 96 12/01/16 12:07 12/01/16 12:07 12/01/16 12:07 12/01/16 12:07 12/01/16 12:07 - Constitutional Constitutional: no acute distress, morbidly obese, other (pale appearance) - HEENT HEENT: Pallor, EOMI, Mucus Membranes Moist - Neck Neck exam: full ROM - Lungs Respiratory exam: CTAB - Cardiovascular Cardiovascular exam: RRR - Extremities Extremities exam: warm - Comments Comments: no active bleeding, 5mm clot in vaginal vault exam by Results Result Diagrams: 12/02/16 04:45 12/02/16 04:45 Abnormal lab results RBC 3.27 M/mcL (3.82-4.97) L 12/01/16 16:17 Hgb 8.8 g/dL (11.5-15.4) L 12/01/16 16:17 Hct 29.4 % (35.3-44.9) L 12/01/16 16:17 MCH 26.9 pg (28.0-33.3) L 12/01/16 16:17 MCHC 29.9 g/dL (31.6-35.5) L 12/01/16 16:17 RDW 15.9 % (11.5-14.5) H 12/01/16 16:17 PT 24.7 Seconds (9.4-12.1) H 12/01/16 16:17 APTT 37.4 Seconds (26.0-36.0) H 12/01/16 16:17 Est GFR (Non-Af Amer) 58 (> 60) L 12/01/16 16:17 All other labs normal. Consult Discharge Plan - Plan Referrals: Bridget Romero, [facility] [Advanced Practice Nurse] - - Attending Attestation I saw this patient and I agree with this note.
[2016-12-01] MEDS ORDERED: Naloxone 0.4 MG/ML INJ IVP PRN (21:43)
[2016-12-01] MEDS ORDERED: Ondansetron ODT 4 MG TAB.RAPDIS SL PRN (21:43)
--- NOTE | 2016-12-01 22:25 | Internal Med History&Physical ---
<Isabel Gonzalez - Last Filed: 12/02/16 04:48> Date of Encounter: 12/02/16 Time of Encounter: 21:49 Assessment and Plan (1) Vaginal bleeding, abnormal Current visit: Yes Status: Acute Patient with abnormal vaginal bleeding x 3 weeks after restarting Xarelto. Hemoglobin decreased from 12.2 to 8.8 in less than one month. Vital signs are stable Patient took her last dose of xarelto this morning. OB and hematology consulted. 1. Continue monitor vital signs. 2. Will transfuse 2 units fresh frozen plasma to help reverse her anticoagulation. 3. Will type and screen for 2 units PRBC. Plan to diffuse if patient's hemoglobin decreases below 8 due to her shortness of breath. 4. H&H every 6 hours. 5. Appreciate OB consultation. Will tentatively plan for an ablation later this week unless patient beings to bleed again. If patient drops her hemaglobin with significant vaginal bleeding, patient may require emergent D&C. Patient is NPO overnight. 6. Appreciate hematology consultation. (2) Anemia Current visit: No Status: Acute Patient with anemia. Hemoglobin less than 1 month ago was 12.2, today it was 8.8. 1. Will trend H&H every 6 hours 2. Type and screen for 2 units PRBCs for if hemoglobin drops below 8. 3. Iron studies, B12, and folate with morning labs. 4. Anticipate that patient may require iron supplementation - consider IV replacement while in hospital vs oral. Qualifiers: Anemia type: other cause Other causes of anemia: other cause, not classified Qualified Code(s): D64.89 - Other specified anemias (3) Deep vein thrombosis of lower extremity Current visit: No Status: Acute Patient diagnosed with DVT sanjuana 3 months ago. US showed a right distal iliac thrombosis, a right superficial femoral thrombosis, a right popliteal thrombosis and a left greater saphanous thrombosis. Patient has an IVC filter in place. Will currently hold xarelto. Patient may want to consider a consultation with vascular surgery at some point in the future for symptomatic control. 1. Hold Xarelto 2. Consult place to hematology. Qualifiers: Affected thrombotic vein of extremity: iliac Laterality: bilateral Chronicity: acute Qualified Code(s): I82.423 - Acute embolism and thrombosis of iliac vein, bilateral (4) HTN (hypertension) Current visit: No Status: Chronic Patient with history of hypertension. In our ED, blood pressures ranged 150- 160s/90-100s. 1. Continue home blood pressure medication - atenolol. Qualifiers: Hypertension type: essential hypertension Qualified Code(s): I10 - Essential (primary) hypertension (5) History of pulmonary embolism Current visit: No Status: Chronic Patient with a history of 2 previous unprovoked PE. Patient reports shortness of breath with walking but not at rest and no chest pain. Lung sounds are clear bilaterally. Do not feel that a CTA is indicated to rule out PE at this time. While susannah does have IVC filter, with her significant history, patient is likely going require life-long pharmacological anticoagulation. Hematology consulted for recommendations. 1. Consult place to hematology (6) Bilateral lower extremity edema Current visit: Yes Status: Acute Patient with BL lower extremity edema of unknown etiology. She does have diagnosed DVT in her legs. With patient's associated shortness of breath, will get and ECHO and EKG to evaluation for cardiac function. 1. ECHO 2. EKG 3. Will also give patient lasix before and after her 2 units of FFP due to her significant edema. (7) Shortness of breath Current visit: Yes Status: Acute Patient with shortness of breath with exertion, will get and ECHO and EKG to evaluation for cardiac function. 1. Continuous O2 monitoring and supplemental oxygen as needed. 2. ECHO 3. EKG 4. Will also give patient lasix before and after her 2 units of FFP due to her significant lower extremity edema. (8) Presence of IVC filter Current visit: No Status: Chronic (9) Morbid obesity with BMI of 50.0-59.9, adult Current visit: No Status: Chronic (10) DVT prophylaxis Current visit: No Status: Acute Pharmacological prophylaxis is NOT currently indicated due to active bleeding. 1. SCD Internal Medicine - H&P: HPI Chief complaint: vaginal bleeding x 4 weeks Admitted From: Home Plans for Post Hospital Care: Home History of present illness: Ms. Mathur is a 41 year old female with PMH of unprovoked PE x2, significant bleeding with xerelto, HTN, osteoporosis, migraines and obesity who presents with 4 weeks of vaginal bleeding. On discussion of history, patient reports 2 previous PE in 2013 and 2014. She was place on xerelto but developed significant vaginal bleeding requiring multiple transfusions and 2 D&C's. Patient had a rotator cuff repair here at [facility] 10-30-2016. On November 07, she was admitted with chest pain and concern for possible PE. CTA and V/Q scan at that time were negative. On she presented with right leg swelling, was diagnosed with DVT and started on xerelto. She reports that since then she has had continuous painless, vaginal bleeding. She reports soaking both a tampon and a pad every 3 hours roughly and reports passing lots of clots. In October, patients hemoglobin was 12.2, today when she went to follow up with hematology, her hemoglobin was 9. Patient reports near syncope with dizziness upon standing, progressively worsening SOB, decreased appetite and BL LE swelling. Patient denies any changes in vision, chest pain, nausea/vomiting, abdominal pain, diarrhea/ constipation or blood in her stool. She reports that she becomes very short of breath walking 10 feet but denies SOB at rest or with conversation. She reports that her right leg started swelling back 3 weeks ago when she was diagnosed with a DVT but that just a couple days after her left leg started swelling as well. She reports that both legs are so swollen that she is unable to wear her normal pants, socks or shoes. She states that her legs are painful and very heavy. On arrival to the ED, vital signs were within normal limits - no tachycardia or hypotension. PROPERTY INSURANCE CLAIMS EXAMINER was consulted and they evaluated the patient. They did a speculum exam, report no active bleeding but approximately 5mm of clots. They are discussing possibility of an ablation or future hysterectomy. On exam, patient is awake and alert, conversing appropriately. Lungs are clear bilaterally with no wheezing or crackles. Heart is regular rate and rhythm. Abdomen is soft, nontender. Patient has significant BL LE swelling. There is no erythema or warmth but she does report pain on palpation. Motor and sensation grossly intact BL LE. Past Med Surg Social Fam HX - Past Medical History Medical history: arthritis, DVT, GERD, hypertension, osteoporosis, pulmonary embolus, other Psychiatric history: no psych history - Past Surgical History Surgical History: knee replacement, orthopedic, other, other (IVC filter placement. Dilatation and curettage procedure.), arthroscopy - Social History Smoking Status: Never smoker Smokeless Tobacco Status: No Alcohol use: none Drug use: none - Family History Father Hx Family Cardiac Disorders: Yes (HTN) Hx Family Endocrine Disorder: Yes (DIABETES MELLITUS.) Mother Adopted: No Living Status: Still Living Hx Family Cardiac Disorders: No Hx Family Respiratory Disorders: No Hx Family Cancer: No Hx Family GI Disorders: No Hx Family Genitourinary Disorders: No Hx Family Endocrine Disorder: No Hx Family Musculoskeletal Disorders: Yes (arthritis) Hx Family Neuromuscular Disorders: Yes (epilepsy) Hx Family Neurologic Disorders: No Hx Family HEENT Disorders: No Hx Family Autoimmune Disorders: No Hx Family Reproductive Disorders: No Hx Family Psychosocial Disorders: No Hx Family Medical Disorders: No Internal Medicine - H&P: Meds Atenolol 100 mg PO DAILY 10/26/15 [History] Rivaroxaban [Xarelto] 15 mg PO BID #22 tablet 11/17/16 [Rx] Allergies sulfamethoxazole [From Bactrim] Allergy (Verified 12/01/16 17:01) Rash trimethoprim [From Bactrim] Allergy (Verified 12/01/16 17:01) Rash divalproex sodium [From Depakote] Adverse Reaction (Verified 12/01/16 12:11) Hallucinating sumatriptan [From Imitrex] Adverse Reaction (Verified 12/01/16 17:01) Chest Pain/Shortness Of Breath All Systems PM: A 10-system review of systems was performed and is negative for pertinent findings except as documented above in the HPI. - Constitutional Constitutional: fatigue, weight gain, no chills, no fever(s), no falls - EENT Eyes: no change in vision - Cardiovascular Cardiovascular ROS IM: dyspnea on exertion, edema, lightheadedness, no chest pain, no palpitations, no syncope - Respiratory Respiratory: dyspnea on exertion, no cough, no wheezing, no pain on inspiration , no chest congestion - Gastrointestinal Gastrointestinal: no abdominal pain, no change in stool character, no constipation, no diarrhea, no hematochezia, no melena, no nausea - Genitourinary Genitourinary: abnormal vaginal bleeding, no difficulty voiding, no pelvic pain , no urinary frequency, no urinary hesitancy, no vaginal discharge - Neurological Neurological ROS: dizziness, weakness, no confusion, no headache(s) - Constitutional Vitals: Temp Pulse Resp BP Pulse Ox 98.3 F 84 16 153/96 95 12/01/16 20:58 12/01/16 20:58 12/01/16 20:58 12/01/16 20:58 12/01/16 20:58 General appearance: Present: A&O X 3, no acute distress, obese, answers questions appropriately - Head Head exam: Present: atraumatic, normal inspection, normocephalic - Eye Eye exam: Present: EOMI, normal appearance - ENT ENT exam: Present: mucous membranes moist - Neck Additional comments: Right internal jugular central line in place. - Respiratory Respiratory exam: Present: CTAB. Absent: prolonged expiratory phase, wheezes - Cardiovascular Cardiovascular exam: Present: RRR - GI/Abdominal GI/Abdominal exam: Present: soft. Absent: guarding, rebound, tenderness - Extremities Exam Extremities exam: Present: pedal edema (BL LE swelling), tenderness. Absent: warm - Neurological Exam Neurological exam: Present: alert, CN II-XII intact, oriented X3 - Psychiatric Psychiatric exam: Present: anxious Internal Med - H&P Results - Labs CBC & Chem 7: 12/01/16 23:36 12/01/16 16:17 - Impressions ITS Impressions Chest X-Ray 12/01/16 19:43 IMPRESSION: The right IJ catheter has its tip in the superior vena cava. No pneumothorax. No acute process. D/ / 12/01/2016 20:30:10 Kenn Muñiz MD / shanice Interpreting Provider: Kenn Muñiz MD <CarlsonBarak Yayo - Last Filed: 12/02/16 06:24> Date of Encounter: 12/01/16 Internal Medicine - H&P: HPI History of present illness: Ms. Mathur is a 41 year old female noted to [facility] via the emergency department with chief complaint of 4 weeks of heavy vaginal bleeding taking the normal oral anticoagulant Xarelto recurrent, unprovoked lower extremity DVT. The patient was visited and interviewed and examined. I examined this patient and my medical decision-making was reviewed with the Resident Physician. For this encounter, I have reviewed the documentation, treatment plan, and medical decision making . I agree with the documented findings, disposition and treatment plan as described except to the extent set forth below. Cumulative laboratory and radiographic database was reviewed and considered and discussed. Given the patient's presenting concerns, past medical history and clinical findings and symptoms, she is admitted at this time to undergo further evaluation and disposition. Orders were witnessed the computerized physician service order dispatcher chief system.......................................... All Systems PM: A 10-system review of systems was performed and is negative for pertinent findings except as documented above in the HPI. - Constitutional Vitals: Temp Pulse Resp BP Pulse Ox 98.6 F 94 16 98/65 92 L 12/02/16 04:28 12/02/16 04:28 12/02/16 04:28 12/02/16 04:28 12/02/16 04:28 Internal Med - H&P Results - Labs CBC & Chem 7: 12/02/16 04:45 12/02/16 04:45 Labs: Short CBC 12/01/16 12/02/16 Range/Units 23:36 04:45 Hgb 8.4 L 8.5 L (11.5-15.4) g/dL Hct 27.4 L 27.9 L (35.3-44.9) % BMP 12/02/16 04:45 Sodium 143 Potassium 3.9 Chloride 105 Carbon Dioxide 27 BUN 11 Creatinine 1.02 Glucose 98 Calcium 9.9 Liver Function 12/02/16 Range/Units 04:45 Total Bilirubin 0.3 (0.2-1.2) mg/dL AST 19 (5-34) Units/L ALT 8 (0-55) Units/L Alkaline Phosphatase 80 (38-126) Units/L Albumin 3.3 L (3.5-5.0) g/dL - Impressions ITS Impressions Chest X-Ray 12/01/16 19:43 IMPRESSION: The right IJ catheter has its tip in the superior vena cava. No pneumothorax. No acute process. D/ / 12/01/2016 20:30:10 Kenn Muñiz MD / shanice Interpreting Provider: Kenn Muñiz MD Vital Signs Temp Pulse Resp BP Pulse Ox 12/02/16 04:28 98.6 F 94 16 98/65 92 L 12/02/16 04:13 98.8 F 88 14 126/67 92 L 12/02/16 03:58 98.8 F 88 16 126/67 92 L 12/02/16 03:44 98.8 F 88 14 126/76 94 L 12/02/16 00:57 98.5 F 100 16 123/81 95 12/02/16 00:44 97 F L 97 14 109/73 93 L 12/02/16 00:42 98.5 F 100 16 123/81 95 12/02/16 00:38 97.0 F L 97 16 109/73 93 L 12/01/16 20:58 98.3 F 84 16 153/96 95 12/01/16 20:19 16 175/91 12/01/16 19:45 91 16 159/92 96 12/01/16 19:30 95 18 163/103 100 12/01/16 19:15 96 18 150/130 100 12/01/16 19:03 90 18 152/89 100 12/01/16 15:37 105 18 163/104 12/01/16 12:07 98.1 F 97 17 161/102 96 Intake and Output 12/01/16 12/01/16 12/02/16 15:59 23:59 07:59 Intake Total 0 / 0 327 / 327 Output Total 0 / 0 Balance 0 / 0 327 / 327 Intake: Oral 0 / 0 0 / 0 Blood Product 327 / 327 Plasma Unit 327 / 327 [id number] Plasma Unit 0 / 0 [id number] Output: Urine 0 / 0 Other: # Voids 2 Weight 172.365 kg 169.3 kg 169.9 kg Patient Weight 12/02/16 23:59 Weight 169.9 kg Short CBC 12/02/16 12/01/16 12/01/16 Range/Units 04:45 23:36 16:17 WBC 7.1 (4.3-11.1) K/mcL Hgb 8.5 L 8.4 L 8.8 L (11.5-15.4) g/dL Hct 27.9 L 27.4 L 29.4 L (35.3-44.9) % Plt Count 264 (140-400) K/mcL Neutrophils # 4.8 (1.6-8.9) K/mcL BMP 12/02/16 12/01/16 Range/Units 04:45 16:17 Sodium 143 140 (136-145) mEq/L Potassium 3.9 4.4 (3.5-4.5) mEq/L Chloride 105 106 (98-109) mEq/L Carbon Dioxide 27 22 (19-29) mEq/L BUN 11 11 (7-20) mg/dL Creatinine 1.02 1.04 (0.57-1.11) mg/dL Glucose 98 85 (70-99) mg/dL Calcium 9.9 9.2 (8.6-10.8) mg/dL Liver Function 12/02/16 Range/Units 04:45 Total Bilirubin 0.3 (0.2-1.2) mg/dL AST 19 (5-34) Units/L ALT 8 (0-55) Units/L Alkaline Phosphatase 80 (38-126) Units/L Albumin 3.3 L (3.5-5.0) g/dL Abnormal lab results RBC 3.27 M/mcL (3.82-4.97) L 12/01/16 16:17 Hgb 8.5 g/dL (11.5-15.4) L 12/02/16 04:45 Hct 27.9 % (35.3-44.9) L 12/02/16 04:45 MCH 26.9 pg (28.0-33.3) L 12/01/16 16:17 MCHC 29.9 g/dL (31.6-35.5) L 12/01/16 16:17 RDW 15.9 % (11.5-14.5) H 12/01/16 16:17 PT 15.3 Seconds (9.4-12.1) H 12/02/16 04:45 APTT 37.4 Seconds (26.0-36.0) H 12/01/16 16:17 Est GFR (Non-Af Amer) 59 (> 60) L 12/02/16 04:45 POC Glucose 111 (58-89) H 12/02/16 05:42 Phosphorus 4.8 mg/dL (2.3-4.7) H 12/02/16 04:45 Iron 34 mcg/dL (50-170) L 12/02/16 04:45 % Saturation 9 % (15-50) L 12/02/16 04:45 Albumin 3.3 g/dL (3.5-5.0) L 12/02/16 04:45 Globulin 3.8 g/dL (2.4-3.5) H 12/02/16 04:45 Albumin/Globulin Ratio 0.9 (1.1-2.2) L 12/02/16 04:45 Allergies Allergy/AdvReac Type Severity Reaction Status Date / Time sulfamethoxazole Allergy Rash Verified 12/01/16 17:01 [From Bactrim] trimethoprim [From Bactrim] Allergy Rash Verified 12/01/16 17:01 divalproex sodium AdvReac Hallucinati Verified 12/01/16 12:11 [From Depakote] ng sumatriptan [From Imitrex] AdvReac Chest Verified 12/01/16 17:01 Pain/Shortness Of Breath Laboratory Results WBC 7.1 K/mcL (4.3-11.1) 12/01/16 16:17 RBC 3.27 M/mcL (3.82-4.97) L 12/01/16 16:17 Hgb 8.5 g/dL (11.5-15.4) L 12/02/16 04:45 Hct 27.9 % (35.3-44.9) L 12/02/16 04:45 MCV 89.9 fL (83.0-100.0) 12/01/16 16:17 MCH 26.9 pg (28.0-33.3) L 12/01/16 16:17 MCHC 29.9 g/dL (31.6-35.5) L 12/01/16 16:17 RDW 15.9 % (11.5-14.5) H 12/01/16 16:17 Plt Count 264 K/mcL (140-400) 12/01/16 16:17 MPV 9.4 fL (9.4-12.4) 12/01/16 16:17 Immature Gran % 0.6 % (0-4) 12/01/16 16:17 Seg Neutrophils % 67.9 % 12/01/16 16:17 Lymphocytes % 20.9 % 12/01/16 16:17 Monocytes % 6.9 % 12/01/16 16:17 Eosinophils % 3.1 % 12/01/16 16:17 Basophils % 0.6 % 12/01/16 16:17 Neutrophils # 4.8 K/mcL (1.6-8.9) 12/01/16 16:17 Lymphocytes # 1.5 K/mcL (0.6-4.6) 12/01/16 16:17 Monocytes # 0.5 K/mcL (0.0-1.3) 12/01/16 16:17 Eosinophils # 0.2 K/mcL (0.0-0.6) 12/01/16 16:17 Basophils # 0.0 K/mcL (0.0-0.2) 12/01/16 16:17 Immature Plt Fraction 2.0 % (1.1-6.1) 12/01/16 16:17 PT 15.3 Seconds (9.4-12.1) H 12/02/16 04:45 INR 1.4 12/02/16 04:45 APTT 37.4 Seconds (26.0-36.0) H 12/01/16 16:17 Sodium 143 mEq/L (136-145) 12/02/16 04:45 Potassium 3.9 mEq/L (3.5-4.5) 12/02/16 04:45 Chloride 105 mEq/L (98-109) 12/02/16 04:45 Carbon Dioxide 27 mEq/L (19-29) 12/02/16 04:45 BUN 11 mg/dL (7-20) 12/02/16 04:45 Creatinine 1.02 mg/dL (0.57-1.11) 12/02/16 04:45 Est GFR ( Amer) > 60 (> 60) 12/02/16 04:45 Est GFR (Non-Af Amer) 59 (> 60) L 12/02/16 04:45 BUN/Creatinine Ratio 11 (6-26) 12/02/16 04:45 Glucose 98 mg/dL (70-99) 12/02/16 04:45 POC Glucose 111 (58-89) H 12/02/16 05:42 Calculated Osmolality 295 (280-300) 12/02/16 04:45 Calcium 9.9 mg/dL (8.6-10.8) 12/02/16 04:45 Phosphorus 4.8 mg/dL (2.3-4.7) H 12/02/16 04:45 Magnesium 2.0 mg/dL (1.6-2.6) 12/02/16 04:45 Iron 34 mcg/dL (50-170) L 12/02/16 04:45 % Saturation 9 % (15-50) L 12/02/16 04:45 Transferrin 263 mg/dL (180-382) 12/02/16 04:45 Total Bilirubin 0.3 mg/dL (0.2-1.2) 12/02/16 04:45 AST 19 Units/L (5-34) 12/02/16 04:45 ALT 8 Units/L (0-55) 12/02/16 04:45 Alkaline Phosphatase 80 Units/L (38-126) 12/02/16 04:45 B-Natriuretic Peptide 11 pg/mL (0-100) 12/01/16 23:36 Serum Total Protein 7.1 g/dL (6.0-8.3) 12/02/16 04:45 Albumin 3.3 g/dL (3.5-5.0) L 12/02/16 04:45 Globulin 3.8 g/dL (2.4-3.5) H 12/02/16 04:45 Albumin/Globulin Ratio 0.9 (1.1-2.2) L 12/02/16 04:45 Serum , Qual Negative (Negative) 12/01/16 16:17 Blood Type A POSITIVE 12/01/16 16:17 Antibody Screen NEGATIVE 12/01/16 16:17 Impressions - Attending Attestation My signature below is to certify that this patient is under my care and that I, or the Resident Physician working with me, has had a [id number] encounter with this patient. Plan of care has been reviewed and discussed in detail with the patient and family. Questions addressed. Advance care directive briefly addressed. Patient is not clear in the healthcare restrictions at this time. Outpatient medication schedules will be reviewed, confirmed and facilitated as appropriate. Reconciliation of home treatments including adjustments, substitutions and reintroduction into the treatment regimen will address necessary maintenance therapies for chronic pre-existing medical conditions. Cessation counseling briefly addressed. The patient is a nonsmoker. Hospital course will be dependent on clinical findings, treatment response and potential consultative interventions. The patient is at risk for acute clinical decline and morbidity given his presenting complaint, findings and associated comorbid conditions. Condition is serious. Prognosis is cautiously optimistic. CODE STATUS is full.
[2016-12-01] MEDS: Acetaminophen 325 MG TABLET PO PRN (23:13)
[2016-12-01] MEDS ORDERED: Furosemide 20 MG/2 ML VIAL IVP ONE ×3 (23:17→23:19)
[2016-12-01 23:44] LABS: Hematocrit 27.4 % (35.3-44.9); Hemoglobin 8.4 g/dL (11.5-15.4)
[2016-12-02] MEDS ORDERED: 0.9 % Sodium Chloride 250 ML ONE ×3 (00:33→12:47)
[2016-12-02 05:20] LABS: INR 1.4; Prothrombin Time 15.3 Seconds (9.4-12.1)
[2016-12-02 05:21] LABS: Hematocrit 27.9 % (35.3-44.9); Hemoglobin 8.5 g/dL (11.5-15.4)
[2016-12-02 05:36] LABS: % Iron Saturation 9 % (15-50); Alanine Aminotransferase 8 Units/L (0-55); Albumin 3.3 g/dL (3.5-5.0); Albumin/Globulin Ratio 0.9 (1.1-2.2); Alkaline Phosphatase 80 Units/L (38-126); Aspartate Amino Transferase 19 Units/L (5-34); BUN/Creatinine Ratio 11 (6-26); Bilirubin,Total 0.3 mg/dL (0.2-1.2); Blood Urea Nitrogen 11 mg/dL (7-20); Calcium 9.9 mg/dL (8.6-10.8); Carbon Dioxide 27 mEq/L (19-29); Chloride 105 mEq/L (98-109); Globulin 3.8 g/dL (2.4-3.5); Glucose 98 mg/dL (70-99); Iron 34 mcg/dL (50-170); Osmolality,Calculated 295 (280-300); Phosphorous 4.8 mg/dL (2.3-4.7); Potassium 3.9 mEq/L (3.5-4.5); Sodium 143 mEq/L (136-145); Total Protein 7.1 g/dL (6.0-8.3); Transferrin 263 mg/dL (180-382); eGFR For African Americans > 60 (> 60); eGFR For Non-African Americans 59 (> 60)
[2016-12-02] MEDS ORDERED: *HR* HYDROmorphone (PF) 1 MG/ML SYRINGE IVP PRN (06:06)
[2016-12-02] MEDS ORDERED: *HR* OxyCODONE Immed Rel 5 MG TABLET PO PRN (06:06)
[2016-12-02 06:11] LABS: Folate 7.1 ng/mL (7.0-31.4)
[2016-12-02] MEDS ORDERED: Bumetanide 1 MG/4 ML VIAL IVP STA (06:24)
[2016-12-02] MEDS: Pantoprazole 40 MG VIAL IVP SCH (06:39)
[2016-12-02] MEDS ORDERED: Furosemide 20 MG/2 ML VIAL IVP ONE (08:45)
[2016-12-02] MEDS: Bumetanide 1 MG/4 ML VIAL IVP SCH ×2 (10:50→20:46)
[2016-12-02] MEDS: Acetaminophen 325 MG TABLET PO PRN (10:51)
[2016-12-02 11:26] LABS: Hematocrit 25.5 % (35.3-44.9); Hemoglobin 7.7 g/dL (11.5-15.4)
[2016-12-02] MEDS: *HR* HYDROmorphone 2 MG/ML SYRINGE IVP PRN ×3 (11:28→18:25)
--- NOTE | 2016-12-02 11:47 | Internal Med Progress Note ---
<Emilia Oakes Ryann - Last Filed: 12/02/16 11:17> Date of Encounter: 12/02/16 Time of Encounter: 11:17 - Assessment and plan (1) Anemia due to blood loss Current Visit: Yes Status: Acute Assessment and plan: Hb stable at 7.7 down from 8.4 upon admission. Patient continues to bleed vaginally. We will transfuse 1 unit RBCs. OB has been consulted and plans for uterine ablation tomorrow. We will hold Xarelto until resolution of bleeding. She does have bilateral lower extremity DVTs and will require long-term anticoagulation. (2) Bilateral lower extremity edema Current Visit: Yes Status: Acute (3) Vaginal bleeding, abnormal Current Visit: Yes Status: Acute Assessment and plan: Will follow recommendations per OB (4) Deep vein thrombosis of lower extremity Current Visit: No Status: Acute Assessment and plan: Patient with bilateral lower extremity swelling for 2-3 weeks and evidence of bilateral DVTs. There is concern that IVC filter may be clogged. We will get CTA abd/pelvis with focus on venous phase. We will consult vascular surgery. Qualifiers: Affected thrombotic vein of extremity: iliac Laterality: bilateral Chronicity: acute Qualified Code(s): I82.423 - Acute embolism and thrombosis of iliac vein, bilateral (5) Presence of IVC filter Current Visit: No Status: Chronic (6) Morbid obesity with BMI of 50.0-59.9, adult Current Visit: No Status: Chronic - Time Spent With Patient 25 - 35 minutes - Subjective Interval history: Patient with vaginal bleeding x 4 weeks. She states that she is using 1 pad and 1 tampon every 3 hours. She is currently taking Xarelto. Hb upon admission was 8.4 down from 9.3 on 11/13/16 at last admission. She complains of fatigue and dsypnea. She also complains that bilateral lower extremities are 2 times their normal size. This swelling began approximately 3 weeks ago in the right leg and 2 weeks ago in the left. Patient has history of PE diagnosed June,. However, she stopped Xarelto aproximately one year ago due to vaginal bleeding. She was seen at the hospital 11/07/16 with chest pain. CTA and VQ scan were negative. Patient returned to hospital on 11/12/16 with right leg pain. Venous Duplex US 11/12 revealed occlusive thrombus in right distal iliac, right common femoral, right superficial femoral, right popliteal, left great saphneous. She was placed on Xarelto. Patient is s/p right shoulder arthroscopy. - Constitutional Vitals: Temp Pulse Resp BP Pulse Ox 98.3 F 100 18 139/94 93 L 12/02/16 07:31 12/02/16 07:31 12/02/16 07:31 12/02/16 07:31 12/02/16 08:27 General appearance: Present: A&O X 3, no acute distress, obese, answers questions appropriately - Head Head exam: Present: atraumatic, normocephalic - Eye Eye exam: Present: PERRL, conjuntiva pink, sclera anicteric Pupils: Present: PERRL - Neck Neck exam general surgery: Present: supple, trachea midline. Absent: lymphadenopathy Additional comments: Right IJ in place - Respiratory Respiratory exam: Present: CTAB. Absent: accessory muscle use, rales, rhonchi, wheezes - Cardiovascular Cardiovascular exam: Present: +S1, +S2, tachycardia (regular rhythm). Absent: diastolic murmur, gallop, rubs, systolic murmur - GI/Abdominal GI/Abdominal exam: Present: normal bowel sounds, soft, no peritoneal signs. Absent: distended, tenderness - Extremities Exam Extremities exam: Present: pedal edema (4+ non-pitting edema of bilateral lower extremities present from feet to pubis), warm. Absent: calf tenderness, cyanotic - Neurological Exam Neurological exam: Present: CN II-XII intact, oriented X3, no focal deficits. Absent: pronater drift, facial droop, speech deficit - Skin Skin exam: Present: dry, intact Internal Medicine: Result - Labs CBC & Chem 7: 12/02/16 04:45 12/02/16 04:45 Labs: Short CBC 12/01/16 12/02/16 Range/Units 23:36 04:45 Hgb 8.4 L 8.5 L (11.5-15.4) g/dL Hct 27.4 L 27.9 L (35.3-44.9) % BMP 12/02/16 04:45 Sodium 143 Potassium 3.9 Chloride 105 Carbon Dioxide 27 BUN 11 Creatinine 1.02 Glucose 98 Calcium 9.9 Liver Function 12/02/16 Range/Units 04:45 Total Bilirubin 0.3 (0.2-1.2) mg/dL AST 19 (5-34) Units/L ALT 8 (0-55) Units/L Alkaline Phosphatase 80 (38-126) Units/L Albumin 3.3 L (3.5-5.0) g/dL - ABG Interpretation ABG results: PT/INR, D-dimer PT 15.3 Seconds (9.4-12.1) H 12/02/16 04:45 - Impressions Impressions Chest X-Ray 12/01/16 19:43 IMPRESSION: The right IJ catheter has its tip in the superior vena cava. No pneumothorax. No acute process. D/ / 12/01/2016 20:30:10 Kenn Muñiz MD / shanice Interpreting Provider: Kenn Muñiz MD Consult Discharge Plan - Plan Referrals: Bridget Romero SOLE CONFORMING MACHINE OPERATOR [Advanced Practice Nurse] - - Attending Attestation I examined this patient and my medical decision-making was reviewed with the HOME SCHOOL COORDINATOR/PA/Advanced Practice Nurse/Resident Physician. I agree with the documented findings, disposition and treatment plan as described except to the extent set forth below. <Luis Meredith H - Last Filed: 12/02/16 13:46> Date of Encounter: 12/02/16 - Constitutional Vitals: Temp Pulse Resp BP Pulse Ox 98.4 F 72 16 112/66 95 12/02/16 13:08 12/02/16 13:08 12/02/16 13:08 12/02/16 13:08 12/02/16 11:18 Internal Medicine: Result - Labs CBC & Chem 7: 12/02/16 11:02 12/02/16 04:45 Labs: Short CBC 12/01/16 12/02/16 12/02/16 Range/Units 23:36 04:45 11:02 Hgb 8.4 L 8.5 L 7.7 L (11.5-15.4) g/dL Hct 27.4 L 27.9 L 25.5 L (35.3-44.9) % BMP 12/02/16 04:45 Sodium 143 Potassium 3.9 Chloride 105 Carbon Dioxide 27 BUN 11 Creatinine 1.02 Glucose 98 Calcium 9.9 Liver Function 12/02/16 Range/Units 04:45 Total Bilirubin 0.3 (0.2-1.2) mg/dL AST 19 (5-34) Units/L ALT 8 (0-55) Units/L Alkaline Phosphatase 80 (38-126) Units/L Albumin 3.3 L (3.5-5.0) g/dL - ABG Interpretation ABG results: PT/INR, D-dimer PT 15.3 Seconds (9.4-12.1) H 12/02/16 04:45 - Impressions Impressions Chest X-Ray 12/01/16 19:43 IMPRESSION: The right IJ catheter has its tip in the superior vena cava. No pneumothorax. No acute process. D/ / 12/01/2016 20:30:10 Kenn Muñiz MD / shanice Interpreting Provider: Kenn Muñiz MD Abdomen/Pelvis CTA 12/02/16 11:59 IMPRESSION: Normal CT arterial angiogram of the abdomen. IVC filter in place. The phase of enhancement for this arteriogram precludes evaluation for thrombus within veins. There is expansion of the left common femoral vein which is suspicious for clot. A repeat study with venous phase imaging is recommended if indicated. D/ / Angelita Moreno Cha, MD / Angelita Moreno Cha, MD Interpreting Provider: Angelita Moreno Cha, MD - Attending Attestation acute blood loss anemia 2ry to vaginal /uterine hemorrhage transfuse RBC s as needed, hold Xarelto Vasc surg consulted
--- NOTE | 2016-12-02 13:08 | ECHO - Doppler Report ---
Echocardiogram Name: Savana Mathur Date of Study: 12/02/2016 Date: 1975 Ht: 68.0 in Medical Record#: [id number] Age: 41 Wt: 374.0 lb Gender: Female BSA: 2.67 Order #: [id number] Location: [facility] Room #: [id number] Reading Physician: Celso Wilkinson DO, MITALI, CARMEN GONZALEZ Medical Office Administrator: Aurelio Ovalles RN Ordering Physician: Isabel Gonzalez DO Primary Physician: None Indications: Edema Impressions: LVEF 65%. Normal LV chamber size, wall thickness and function. Mild left ventricular diastolic dysfunction. Normal right ventricular structure and function. No evidence of pulmonary hypertension. No significant valvular dysfunction. Left Ventricular Wall Motion: Rest Echo Findings All wall segments showed normal motion. Findings: Study Quality * Technically adequate exam. ECG Findings * Normal sinus rhythm. Left Ventricle * LVEF 65%. * Normal LV chamber size, wall thickness and function. * Mild left ventricular diastolic dysfunction. Right Ventricle * Normal right ventricular structure and function. Left Atrium * Mildly dilated left atrium. Right Atrium * Mildly dilated right atrium. Interatrial Septum * No evidence of PFO by color Doppler. Aortic Valve * Trileaflet aortic valve. * No aortic regurgitation. * No aortic stenosis. Mitral Valve * Normal mitral valve structure and function. * No mitral regurgitation. * No mitral stenosis. Tricuspid Valve * Normal tricuspid valve structure and function. * Trace tricuspid regurgitation. * No evidence of pulmonary hypertension. Pulmonic Valve * Pulmonic valve not well visualized. * No pulmonic regurgitation. Aorta * Normally sized aortic root. Pericardium * The pericardium appears normal. IVC * Normal IVC dimensions and inspiratory collapse. Pulmonary Artery * Normal visualized portions of the main pulmonary artery. History Hypertension Measurements: BP: 139/ 94 2D Normal Values RVIDd: 3.60 cm <2.7 cm IVSd: 1.10 cm 0.6 - 1.0 cm LVIDd: 3.20 cm 3.7 - 5.6 cm LVPWd: 1.10 cm 0.6 - 1.1 cm LVIDs: 2.40 cm 1.5 - 3.6 cm LA: 4.00 cm 2.0 - 4.0cm %FS: 25.00 cm >25 % LVOT Diam: 2.00 cm LA volume: 81 Mitral Valve Peak E:.85 m/sec Peak A:.90 m/sec E/A Ratio:0.9 Peak E' Lat Travis:10.8 cm/s Peak E' Med Travis:8.68 cm/s E/E' Lat Ratio:7.9 E/E' Med Ratio:9.8 Tricuspid Valve TV Regurg Peak Grad: 25.00mmHg TV Regurg Peak Travis: 2.50m/sec Updated by Celso Wilkinson DO, FACC, CARMEN GONZALEZ on 12/02/2016 1:03:21 PM electronically signed on 12/02/2016 1:04:09 PM with status of Final Wall Motion Tracey: 1=Normal, 2=Hypokinesis, 3=Akinesis, 4=Dyskinesis, 5=Aneurysmal, 6=Hyperkinetic, X=Not Visualized (Blank)=Missing
--- NOTE | 2016-12-02 16:54 | Oncology Inp Consult Note ---
<Itz Shelby Jr - Last Filed: 12/02/16 17:00> Date of Encounter: 12/02/16 Time of Encounter: 16:00 Assessment and Plan (1) Anemia due to blood loss Status: Acute Assessment and plan: This very pleasant 41-year-old female acute DVT in the rightt distal iliac, superficial femoral, popliteal and SVT in the left greater saphenous vein. CTA of the chest was negative for PEs. She has had two episodes of PE in the past and has an IVC filter. She is currently on Xarelto. She reportedly tested negative for a hypercoagulable w/u in 2007. She developed severe uterine bleeding since first week of initiation of xarelto when she had her regular menstrual cycle. Hgb was 12.1 four weeks ago, is 9.0 on 12/01/16. Patient is symptomatic with extreme shortness of breath, chest pain, palpitations and fatigue. The patient wants to retain her uterus thus far in the hopes of conceiving. He was seen in consult with RETAIL PRODUCT ADVISOR. They have schedule her as an add on tomorrow for uterine ablation in hopes of this will stop the bleeding. The xarelto is on hold until further notice. You can typically restart xarelto 24 hours after elective procedure, but we want to follow her post-op before restarting any anticoagulation. She was given 1 unit of blood and 2 units FFP. Goal for Hgb is >8.0 due to chest pain. Transfuse PRN. Dr Arreola advised and agrees with above plan. (2) Menorrhagia, premenopausal Status: Acute - Data of Consult Patient: new to practice Consult date: 12/02/16 Requesting Physician: Luis Meredith Primary Care Provider: PCP NO - Consult Narrative Reason for consult: anemia of acute hemorrhage History of present illness: Ms. Mathur is a 41 year old female 41 yo F with PMHx of DVT, 2 PE placed on xarelto 3 weeks ago. She was seen by fashion director, Dr Marlen Jones at [facility] on 12/01/16. Patient with previous episodes of PE placed on xarelto and developed heavy vaginal bleeding, necessitating discontinuation of that drug. She had a recurrent extensive RLL DVT in 10/2016. At that time she was discharged on Xarelto starter pack, but she has continued to have pain and started experiencing vaginal bleeding soon after initiation of the xarelto. 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 2007- she developed 1st episode of DVT at in [place], had been in a long car ride prior to the event. Had coagulopathy workup reportedly unremarkable. Had 6 months of Coumadin then stopped. March 2014 - After 8 [address] ride to [place] had PE, started on Xarelto 20 mg a day area at that time venous Doppler negative for DVT in the lower extremity January 2015 - Bridged to Lovenox, then had a D&C. She was on low dose 60 mg subcutaneous twice a day. February 2015 - Developed another PE, and she was on Lovenox. placed back on Xarelto. Again venous Doppler negative for lower extremity DVT April 2015 - Mirena implant June 21 2015 - IVC filter placed at [facility]. In the past she was seen by [facility] who gave shot of Depo provera, was advised on possible hysterectomy for bleeding but patient declined since she wanted to have children. She has had ongoing problems with infertility and does not have children, states she is ready for a hysterectomy if needed. On 12/01/16, Hgb dropped from 12.o to 9.0 with exertional dyspnea, fatigue, and heavy vaginal bleeding. She presented to [facility] ER after encounter at cancer center.She had chief complaints of an increase in exertional dyspnea over the past 2 weeks. Also had a weight gain of 20 pounds over the past 2 weeks. She states even after walking 10 feet she gets short of breath and has a heaviness on her chest. She denies any shortness of breath or chest pain while resting. She was admitted to [facility] for further work up. Past Med Surg Social Fam HX - Past Medical History Medical history: arthritis, DVT, GERD, hypertension, osteoporosis, pulmonary embolus, other Psychiatric history: no psych history - Past Surgical History Surgical History: knee replacement, orthopedic, other, other (IVC filter placement. Dilatation and curettage procedure.), arthroscopy - Social History Smoking Status: Never smoker Smokeless Tobacco Status: No Alcohol use: none Drug use: none - Family History Father Hx Family Cardiac Disorders: Yes (HTN) Hx Family Endocrine Disorder: Yes (DIABETES MELLITUS.) Mother Adopted: No Living Status: Still Living Hx Family Cardiac Disorders: Yes (htn) Hx Family Respiratory Disorders: No Hx Family Cancer: No Hx Family GI Disorders: No Hx Family Genitourinary Disorders: No Hx Family Endocrine Disorder: No Hx Family Musculoskeletal Disorders: Yes (arthritis) Hx Family Neuromuscular Disorders: Yes (epilepsy) Hx Family Neurologic Disorders: No Hx Family HEENT Disorders: No Hx Family Autoimmune Disorders: No Hx Family Reproductive Disorders: No Hx Family Psychosocial Disorders: No Hx Family Medical Disorders: No Medications and Allergies Atenolol 100 mg PO DAILY 10/26/15 [History] Rivaroxaban [Xarelto] 15 mg PO BID #22 tablet 11/17/16 [Rx] Allergies sulfamethoxazole [From Bactrim] Allergy (Verified 12/01/16 17:01) Rash trimethoprim [From Bactrim] Allergy (Verified 12/01/16 17:01) Rash divalproex sodium [From Depakote] Adverse Reaction (Verified 12/01/16 12:11) Hallucinating sumatriptan [From Imitrex] Adverse Reaction (Verified 12/01/16 17:01) Chest Pain/Shortness Of Breath All systems: reviewed and no additional remarkable complaints except as stated Constitutional: Present: fatigue, headache(s), lethargy, weakness, weight gain ( 2o lbs) Genitourinary: Present: abnormal menses, abnormal vaginal bleeding Oncology - Exam - Constitutional Vitals: Temp Pulse Resp BP Pulse Ox 98.4 F 68 16 97/61 95 12/02/16 16:00 12/02/16 16:00 12/02/16 16:00 12/02/16 16:00 12/02/16 16:00 General appearance: cooperative, mild distress, morbidly obese - Head Head exam: Present: atraumatic, normal inspection - Eye Eye exam: Present: normal appearance, PERRL - ENT ENT exam: Present: mucous membranes dry - Neck Neck exam: Present: full ROM, normal inspection - Respiratory Respiratory exam: Present: CTAB - Cardiovascular Cardiovascular exam: Present: +S1, +S2, tachycardia - GI/Abdominal GI/Abdominal exam: Present: diminished bowel sounds, soft - Extremities Exam Extremities exam: Present: full ROM, joint swelling, pedal edema - Neurological Exam Neurological exam: Present: alert, CN II-XII intact, oriented X3, no focal deficits Oncology - Results - Labs Labs: Short CBC 12/01/16 12/02/16 12/02/16 Range/Units 23:36 04:45 11:02 Hgb 8.4 L 8.5 L 7.7 L (11.5-15.4) g/dL Hct 27.4 L 27.9 L 25.5 L (35.3-44.9) % BMP 12/02/16 04:45 Sodium 143 Potassium 3.9 Chloride 105 Carbon Dioxide 27 BUN 11 Creatinine 1.02 Glucose 98 Calcium 9.9 Liver Function 12/02/16 Range/Units 04:45 Total Bilirubin 0.3 (0.2-1.2) mg/dL AST 19 (5-34) Units/L ALT 8 (0-55) Units/L Alkaline Phosphatase 80 (38-126) Units/L Albumin 3.3 L (3.5-5.0) g/dL Consult Discharge Plan - Plan Referrals: NO,PCP [Primary Care Provider] - <Nkechi Arreola - Last Filed: 12/03/16 09:10> Date of Encounter: 12/03/16 - Data of Consult Requesting Physician: Luis Meredith Primary Care Provider: PCP NO - Consult Narrative History of present illness: Ms. Mathur is a 41 year old female with history as noted above, reviewed by me with a diagnosis of recent thrombotic episode placed on Xarelto, with prior history of deep venous thrombosis and IVC filter placement, clearly thrombogenic needing long-term anticoagulation. Due to acute bleeding episode and drop in hemoglobin hematocrit Xarelto is temporarily held until her bleeding symptoms are controlled/procedural intervention by NEEDLE STRAIGHTENER. Xarelto 2. Resume to tomorrow at the therapeutic dose of 20 mg daily for bleeding symptoms are controlled. I had seen the patient bedside she was in minimal distress as well as emotionally upset due to a migraine headache as well as some stressful situation and heavy menstrual bleeding at that time. No shortness of breath on examination no tenderness on abdomen palpation. Plan of care was discussed with the patient in detail. I have discussed the above history and physical findings and plan in detail with Dr. Shelby over GEOPHYSICS PROFESSOR and is in agreement with the plan as noted above. Oncology - Exam - Constitutional Vitals: Temp Pulse Resp BP Pulse Ox 98.3 F 74 18 111/60 96 02/16/17 06:50 12/03/16 06:50 12/03/16 06:50 12/03/16 06:50 12/03/16 07:23 Oncology - Results - Labs Labs: Short CBC 12/02/16 12/03/16 12/03/16 Range/Units 18:05 00:18 06:28 Hgb 8.5 L 8.5 L 8.8 L (11.5-15.4) g/dL Hct 27.6 L 27.5 L 27.9 L (35.3-44.9) %
--- NOTE | 2016-12-02 18:25 | Vascular/Endovasc Consult Note ---
Date of Encounter: 12/02/16 Time of Encounter: 18:21 Assessment and Plan (1) DVT of lower limb, acute Current Visit: Yes Status: Acute Patient has an acute DVT from a duplex scan in October affecting the iliac and femoral and popliteal deep venous systems. Qualifiers: Affected thrombotic vein of extremity: femoral Laterality: right Qualified Code(s): I82.411 - Acute embolism and thrombosis of right femoral vein (2) Bilateral lower extremity edema Current Visit: Yes Status: Acute Significant bilateral lower extremity edema. Rule out possibility of IVC filter thrombus or inferior vena caval thrombus. A venous ultrasound of the abdomen and left lower extremity will be obtained tonight. The patient needs to have the ablation therapy performed tomorrow so that she may be restarted on anticoagulation on Wednesday. The anatomy of the vena cava and iliac system needs to be clarified on the venous side. The patient may need further treatment. The ideal treatment would be the use of tPA for venous thrombus lysis and AngioJet for mechanical thrombectomy. I would anticipate she would also require retrieval of the present IVC filter and replacement with a new IVC filter via a right internal jugular approach. However the use of tPA in light of surgical manipulation at this time is contraindicated. (3) Anemia due to blood loss Current Visit: Yes Status: Acute Patient has vaginal bleeding. She is scheduled for ablation via [facility] ASSIST[facility] service tomorrow. Patient was also informed that if this is not successful she may ultimately require hysterectomy. (4) Pulmonary embolus Current Visit: No Status: Chronic Due to history of at least 2 episodes of pulmonary emboli the patient requires lifelong anticoagulation. Qualifiers: Pulmonary embolism type: other Chronicity: chronic Acute cor pulmonale presence: without acute cor pulmonale Qualified Code(s): I27.82 - Chronic pulmonary embolism (5) Presence of IVC filter Current Visit: No Status: Chronic IVC filter and IVC to be further evaluated with venous duplex scan ordered for tonight. - History of Present Illness Consult date: 12/02/16 Consult reason: Vaginal bleeding and DVTquestion of status of IVC and IVC filter Chief complaint: Vaginal bleeding and leg swelling and weight gain History of present illness: Ms. Mathur is a 41 year old female Admitted yesterday for further evaluation. She has been having significant vaginal bleeding. She has a very long and complicated thrombotic issue. It began as with an initial DVT in 2007 after a prolonged automobile ride. In 2013 she had a pulmonary embolism in February 2015 she had a second pulmonary embolism. In June 2015 she had an IVC filter placed at [facility]. The exact circumstances of the placement of the IVC filter are not clear. In early October she had some type of shoulder surgery performed here at [facility]. A few weeks later she developed a right lower extremity deep venous thrombosis that was rather extensive and documented by venous duplex scanning. She was started back on Xarleto and then experienced significant vaginal bleeding to the point of anemia requiring transfusion. Part of the Bleeding factor was the patient's desire to have children and relaxants to have a hysterectomy. At this point she is now coming to the realization that she is not going to have children and is scheduled to undergo ablation therapy by WELLNESS ASSISTANT tomorrow to control the vaginal bleeding. In addition it is unclear what her full hematologic workup has been but it is obvious at this point the patient needs lifelong anticoagulation. The issue raised now is what is the status of her vena cava and IVC filter. A CT angiogram was recommended and I had recommended that this be performed with a focus on the venous phase of the exam. Unfortunately this was not done and the venous component is not clearly outlined on the study. Therefore the involvement of the inferior vena cava and iliac system and a thrombotic process remains unknown. The patient relates to having significant right lower extremity swelling once the diagnosis of right lower extremity DVT was made. Then within the last 2 weeks she has noted significant left lower extremity swelling. In addition to this she believes that she has had a weight gain of greater than 25 pounds over the past few weeks. Because of all these factors for potential for IVC thrombosis is realistic and needs to be ruled out. Past Med Surg Social Fam HX - Past Medical History Medical history: arthritis, DVT, GERD, hypertension, osteoporosis, pulmonary embolus, other Psychiatric history: no psych history - Past Surgical History Surgical History: knee replacement, orthopedic, other, other (IVC filter placement. Dilatation and curettage procedure.), arthroscopy - Social History Smoking Status: Never smoker Smokeless Tobacco Status: No Alcohol use: none Drug use: none - Family History Father Hx Family Cardiac Disorders: Yes (HTN) Hx Family Endocrine Disorder: Yes (DIABETES MELLITUS.) Mother Adopted: No Living Status: Still Living Hx Family Cardiac Disorders: Yes (htn) Hx Family Respiratory Disorders: No Hx Family Cancer: No Hx Family GI Disorders: No Hx Family Genitourinary Disorders: No Hx Family Endocrine Disorder: No Hx Family Musculoskeletal Disorders: Yes (arthritis) Hx Family Neuromuscular Disorders: Yes (epilepsy) Hx Family Neurologic Disorders: No Hx Family HEENT Disorders: No Hx Family Autoimmune Disorders: No Hx Family Reproductive Disorders: No Hx Family Psychosocial Disorders: No Hx Family Medical Disorders: No Medications and Allergies Atenolol 100 mg PO DAILY 10/26/15 [History] Rivaroxaban [Xarelto] 15 mg PO BID #22 tablet 11/17/16 [Rx] Allergies sulfamethoxazole [From Bactrim] Allergy (Verified 12/01/16 17:01) Rash trimethoprim [From Bactrim] Allergy (Verified 12/01/16 17:01) Rash divalproex sodium [From Depakote] Adverse Reaction (Verified 12/01/16 12:11) Hallucinating sumatriptan [From Imitrex] Adverse Reaction (Verified 12/01/16 17:01) Chest Pain/Shortness Of Breath All Systems Review: A 10-system review of systems was performed and is negative for pertinent findings except as documented above in the HPI. Exam Vital Signs, Last 4 Hours Temp Pulse Resp BP Pulse Ox 12/02/16 16:00 98.4 F 68 16 97/61 95 General: Present: Conversant, No Apparent Distress, Other (The patient is markedly obese) HEENT: Present: Atraumatic, Normocephaly Cardiac: Present: Reg Rate and Rhythm, Normal S1 and S2, No Murmur. Absent: Irregular Rhythm Lungs: Present: Normal Breath Sounds, No Wheeze, Rales, Rhonchi Neuro: Present: Alert and responsive, No focal deficits noted Abdomen: Present: Soft, Non-tender, Other (Obese) Vascular: Present: Normal capillary refill, Pulse, normal, Other (The patient has obese lower extremities. I do not palpate any obvious masses. There is no signs of palpable cords or cellulitis. There is no stasis dermatitis. There is no venous hyperpigmentation.) Skin: Present: No rashes noted on visualized skin Consult Discharge Plan - Plan Referrals: NO,PCP [Primary Care Provider] -
[2016-12-02 19:03] LABS: Hematocrit 27.6 % (35.3-44.9); Hemoglobin 8.5 g/dL (11.5-15.4)
[2016-12-03] MEDS: *HR* HYDROmorphone 2 MG/ML SYRINGE IVP PRN ×2 (00:27→04:42)
[2016-12-03 00:32] LABS: Hematocrit 27.5 % (35.3-44.9); Hemoglobin 8.5 g/dL (11.5-15.4)
[2016-12-03] MEDS: Bumetanide 1 MG/4 ML VIAL IVP SCH (04:41)
[2016-12-03] MEDS: Pantoprazole 40 MG VIAL IVP SCH (06:31)
[2016-12-03 07:00] LABS: Hematocrit 27.9 % (35.3-44.9); Hemoglobin 8.8 g/dL (11.5-15.4)
[2016-12-03] MEDS: *HR* HYDROmorphone (PF) 1 MG/ML SYRINGE IVP PRN ×5 (07:54→20:55)
--- NOTE | 2016-12-03 09:38 | Internal Med Progress Note ---
<Emilia Oakes - Last Filed: 12/03/16 09:40> Date of Encounter: 12/03/16 Time of Encounter: 09:32 - Assessment and plan (1) Anemia due to blood loss Current Visit: Yes Status: Acute Assessment and plan: Hb stable at 8.8 down from 8.5 yesterday. Patient continues to bleed vaginally. Transfused 1unit RBCs and 2u FFP yesterday OB plans uterine ablation today to stop uterine bleeding We will hold Xarelto until resolution of bleeding. She does have bilateral lower extremity DVTs and will require long-term anticoagulation. (2) Bilateral lower extremity edema Current Visit: Yes Status: Acute Assessment and plan: Duplex scan in October, multiple DVTs in bilateral lower extremities Concern for thrombus in IVC Vascular surgery consult appreciated. Patient will likely require venous thrombus lysis with possible retrieval of IVC filter Patient is high risk due to recurrent thrombosis (3) Vaginal bleeding, abnormal Current Visit: Yes Status: Acute Assessment and plan: Will follow recommendations per OB Uterine ablation today (4) Deep vein thrombosis of lower extremity Current Visit: No Status: Acute Assessment and plan: as above Qualifiers: Affected thrombotic vein of extremity: iliac Laterality: bilateral Chronicity: acute Qualified Code(s): I82.423 - Acute embolism and thrombosis of iliac vein, bilateral (5) Presence of IVC filter Current Visit: No Status: Chronic (6) Morbid obesity with BMI of 50.0-59.9, adult Current Visit: No Status: Chronic - Time Spent With Patient 25 - 35 minutes - Subjective Interval history: Patient with vaginal bleeding x 4 weeks. She states that she is using 1 pad and 1 tampon every 3 hours. She is currently taking Xarelto. Hb upon admission was 8.4 down from 9.3 on 11/13/16 at last admission. She complains of fatigue and dsypnea. She also complains that bilateral lower extremities are 2 times their normal size. This swelling began approximately 3 weeks ago in the right leg and 2 weeks ago in the left. Patient has history of PE diagnosed June,. However, she stopped Xarelto aproximately one year ago due to vaginal bleeding. She was seen at the hospital 11/07/16 with chest pain. CTA and VQ scan were negative. Patient returned to hospital on 11/12/16 with right leg pain. Venous Duplex US 11/12 revealed occlusive thrombus in right distal iliac, right common femoral, right superficial femoral, right popliteal, left great saphneous. She was placed on Xarelto. Patient is s/p right shoulder arthroscopy. - Constitutional Vitals: Temp Pulse Resp BP Pulse Ox 98.3 F 74 18 111/60 96 12/03/16 06:50 12/03/16 06:50 12/03/16 06:50 12/03/16 06:50 12/03/16 07:23 General appearance: Present: A&O X 3, no acute distress, obese, answers questions appropriately Internal Medicine: Result - Labs CBC & Chem 7: 12/03/16 06:28 12/02/16 04:45 Labs: Short CBC 12/02/16 12/03/16 12/03/16 Range/Units 18:05 00:18 06:28 Hgb 8.5 L 8.5 L 8.8 L (11.5-15.4) g/dL Hct 27.6 L 27.5 L 27.9 L (35.3-44.9) % - ABG Interpretation ABG results: PT/INR, D-dimer PT 15.3 Seconds (9.4-12.1) H 12/02/16 04:45 Consult Discharge Plan - Plan Referrals: NO,PCP [Primary Care Provider] - - Attending Attestation I examined this patient and my medical decision-making was reviewed with the TAILING MACHINE OPERATOR/PA/Advanced Practice Nurse/Resident Physician. I agree with the documented findings, disposition and treatment plan as described except to the extent set forth below. <Aurelio Steele - Last Filed: 12/03/16 10:29> Date of Encounter: 12/03/16 - Constitutional Vitals: Temp Pulse Resp BP Pulse Ox 98.3 F 74 18 111/60 96 12/03/16 06:50 12/03/16 06:50 12/03/16 06:50 12/03/16 06:50 12/03/16 07:23 - Head Head exam: Present: atraumatic, normocephalic - Eye Eye exam: Present: PERRL, sclera anicteric Pupils: Present: PERRL - Neck Neck exam general surgery: Present: supple, trachea midline. Absent: lymphadenopathy Additional comments: Right IJ - Respiratory Respiratory exam: Present: CTAB. Absent: accessory muscle use, rales, rhonchi, wheezes - Cardiovascular Cardiovascular exam: Present: RRR, +S1, +S2. Absent: diastolic murmur, gallop, rubs, systolic murmur - GI/Abdominal GI/Abdominal exam: Present: normal bowel sounds, soft, no peritoneal signs. Absent: distended, tenderness - Extremities Exam Extremities exam: Present: pedal edema (3+ non-pitting edema from feet to upper thigh), warm. Absent: calf tenderness, cyanotic - Neurological Exam Neurological exam: Present: CN II-XII intact, oriented X3, no focal deficits. Absent: pronater drift, facial droop, speech deficit - Skin Skin exam: Present: dry, intact Internal Medicine: Result - Labs CBC & Chem 7: 12/03/16 06:28 12/02/16 04:45 Labs: Short CBC 12/02/16 12/03/16 12/03/16 Range/Units 18:05 00:18 06:28 Hgb 8.5 L 8.5 L 8.8 L (11.5-15.4) g/dL Hct 27.6 L 27.5 L 27.9 L (35.3-44.9) % - ABG Interpretation ABG results: PT/INR, D-dimer PT 15.3 Seconds (9.4-12.1) H 12/02/16 04:45
--- NOTE | 2016-12-03 13:55 | Event Note ---
Date of Encounter: 12/03/16 Time of Encounter: 13:49 due to the patient's multiple problems including uterine bleeding, hypercoagulability, acute DVT in the lower extremities and the possibility of suspectingan IVC thrombus, we discussed the possibility/option to transfer the patient to a high care facility. The patient prefers to be transferred to [facility] and as a 2nd choice, she would like us to try to contact [place]. Dr Watson was contacted and is ok with the idea of transferring the patient if that is her preference. Dr Huynh (OBGYN) was contacted as well and agress with the possibility of transferring the patient after the uterine ablation . RIsks were explained as this patient with require to be on anticoagulation therapy as soon as possible ( the next day after the surgical procedure as per Dr Thakur's recommendations) and possibly will require thrombectomy. The patient also requested to be discharged in the morning to attend her grandmother's but she was explained on the possible risks including , she was explained that she would have to go AMA. She understands the risks and agrees with the transfer at the moment.
--- NOTE | 2016-12-03 14:36 | Discharge Summary ---
<Clifton Angulo - Last Filed: 12/03/16 15:00> Date of Encounter: 12/03/16 - Discharge Medications Home Medications: Acetaminophen [Tylenol] 650 mg PO Q6HR PRN #0 tablet 12/03/16 [Rx] Docusate [Colace] 100 mg PO BID PRN #0 capsule 12/03/16 [Rx] HYDROmorphone (PF) [Dilaudid] 0.5 mg IVP Q3HR PRN #0 syringe 12/03/16 [Rx] Naloxone [Narcan] 0.4 mg IVP Q2MIN PRN #0 inj 12/03/16 [Rx] Ondansetron ODT [Zofran ODT] 4 mg SL Q8HR PRN #0 tab.rapdis 12/03/16 [Rx] OxyCODONE Immed Rel [Roxicodone 5 MG] 10 mg PO Q6HR PRN #0 tablet 12/03/16 [Rx] Pantoprazole [Protonix] 40 mg IVP 0630 vial 12/03/16 [Rx] Allergies/Adverse Reactions: Allergies sulfamethoxazole [From Bactrim] Allergy (Verified 12/01/16 17:01) Rash trimethoprim [From Bactrim] Allergy (Verified 12/01/16 17:01) Rash divalproex sodium [From Depakote] Adverse Reaction (Verified 12/01/16 12:11) Hallucinating sumatriptan [From Imitrex] Adverse Reaction (Verified 12/01/16 17:01) Chest Pain/Shortness Of Breath Procedures/tests Complete & Pending: Procedures Performed prior 72 hours Category Date Time Status EV ivc image with branches Urgent Y 12/02/16 18:15 Completed EV venous imaging LE LT Routine Y 12/02/16 18:15 Completed Date of admission: 12/02/16 17:08 Primary care physician: PCP NO Consults: 12/03/16 09:05 Consult to Oncology [CONS] Routine Consulting Provider: [facility] Reason for Consult: anemia, DVT Time Notified: 09:07 Call Completed: Yes - Patient Status Disposition: Transfer Other Condition: Serious - Discharge Instructions Follow Up With: NO,PCP [Primary Care Provider] - Hospital course: Ms. Mathur is a 41 year old female - Time Spent with Patient Total time spent providing and/or coordinating discharge services: Greater than 30 minutes (approximately 40 minutes discussing with patient and arranging transfer) - Constitutional Vitals: Temp Pulse Resp BP Pulse Ox 98.4 F 72 16 126/80 96 12/03/16 11:14 12/03/16 11:14 12/03/16 11:14 12/03/16 11:14 12/03/16 11:14 <Emilia Oakes - Last Filed: 12/03/16 15:09> Date of Encounter: 12/03/16 Time of Encounter: 14:08 - Discharge Diagnosis (1) Deep vein thrombosis of lower extremity Priority: Primary Status: Acute Qualifiers: Affected thrombotic vein of extremity: unspecified vein of extremity Laterality: bilateral Chronicity: acute Qualified Code(s): I82.403 - Acute embolism and thrombosis of unspecified deep veins of lower extremity, bilateral (2) Vaginal bleeding, abnormal Priority: Primary Status: Acute (3) Anemia due to blood loss Priority: Secondary Status: Acute (4) Bilateral lower extremity edema Priority: Secondary Status: Acute (5) History of pulmonary embolism Priority: Secondary Status: Chronic (6) HTN (hypertension) Priority: Secondary Status: Chronic Qualifiers: Hypertension type: essential hypertension Qualified Code(s): I10 - Essential (primary) hypertension (7) Morbid obesity with BMI of 50.0-59.9, adult Priority: Secondary Status: Chronic (8) Presence of IVC filter Priority: Secondary Status: Chronic Procedures/tests Complete & Pending: Procedures Performed prior 72 hours Category Date Time Status EV ivc image with branches Urgent Y 12/02/16 18:15 Completed EV venous imaging LE LT Routine Y 12/02/16 18:15 Completed Date of admission: 12/02/16 17:08 Primary care physician: PCP NO Consults: 12/03/16 09:05 Consult to Oncology [CONS] Routine Consulting Provider: [facility] Reason for Consult: anemia, DVT Time Notified: 09:07 Call Completed: Yes Discharging clinician: Luis Meredith Anticipated date of discharge: 12/03/16 - Patient Status Functional capacity at discharge: independent ambulation Overall status at discharge: patient is not back to baseline - Diet and Activity Activity: as per physical therapy Diet: advance to your usual diet Hospital course: Ms. Mathur is a 41 year old female with past medical history significant for pulmonary embolus, DVT, HTN, morbid obesity, GERD, arthritis, osteoporosis presented to hospital on 11/12/16 with right leg pain. Venous Duplex US 11/12 revealed occlusive thrombus in right distal iliac, right common femoral, right superficial femoral, right popliteal. Also, acute SVT in left great saphenous vein. Patient was placed on Xarelto. Following initiation of Xarelto, she has has had constant vaginal bleeding. Hb on 11/12/16 was 12.2 and on 12/01/16 had decreased to 8.8. She presented to hospital on 12/01/16 with complains of fatigue and dsypnea. She has 3+ non-pitting tense bilateral lower extremity edema. This swelling began approximately 3 weeks ago in the right leg and 2 weeks ago in the left. Venous doppler imaging 12/02/16 revealed DVT in distal external iliac, common femoral, proximal superficial femoral veins. Also, identified was SVT of left greater saphenous. Patient has history of 2 prior unprovoked PEs, with most recent June,. She has IVC filter in place. With Patient is s/p right shoulder arthroscopy on 11/10/16. Patient was transfused 1 unit packed RBCs on 12/02/16. Hb stable at 8.8 at this time. She will undergo uterine ablation today. She will require initiation of anticoagulant following surgery. With bilateral lower extremity edema, concern is for a clot in IVC filter or IVC. She will require treatment for bilateral DVTs to include possible thrombectomy with replacement of IVC filter. She requires close observation as she is high risk due to hypercoagulable state. Options have been reviewed with patient and she is requesting transfer to [facility]. Time spent discussing smoking cessation with patient: more than 10 minutes - Time Spent with Patient Total time spent providing and/or coordinating discharge services: Greater than 30 minutes - Constitutional Vitals: Temp Pulse Resp BP Pulse Ox 98.4 F 72 16 126/80 96 12/03/16 11:14 12/03/16 11:14 12/03/16 11:14 12/03/16 11:14 12/03/16 11:14 General appearance: Present: A&O X 3, no acute distress (tearful about state of health), obese, answers questions appropriately - Head Head exam: Present: atraumatic, normocephalic - Eye Eye exam: Present: EOMI, normal appearance, sclera anicteric Pupils: Present: PERRL - Neck Neck exam general surgery: Present: supple, trachea midline. Absent: lymphadenopathy Additional comments: Right IJ central line in place - Respiratory Respiratory exam: Present: CTAB. Absent: accessory muscle use, rales, rhonchi, wheezes - Cardiovascular Cardiovascular exam: Present: RRR, +S1, +S2. Absent: diastolic murmur, gallop, rubs, systolic murmur - GI/Abdominal GI/Abdominal exam: Present: normal bowel sounds, soft (obese), no peritoneal signs. Absent: distended, tenderness - Extremities Exam Extremities exam: Present: pedal edema (severe 3+ non-pitting tense edema involving entire bilateral lower extremities), warm, radial pulses palpable and symetrical. Absent: calf tenderness, cyanotic - Neurological Exam Neurological exam: Present: CN II-XII intact, oriented X3, no focal deficits. Absent: pronater drift, facial droop, speech deficit - Skin Skin exam: Present: dry, intact - Attending Attestation I examined this patient and my medical decision-making was reviewed with the IMMIGRATION LAW SPECIALIST/PA/Advanced Practice Nurse/Resident Physician. I agree with the documented findings, disposition and treatment plan as described except to the extent set forth below. <Luis Meredith H - Last Filed: 12/03/16 17:07> Date of Encounter: 12/03/16 Procedures/tests Complete & Pending: Procedures Performed prior 72 hours Category Date Time Status EV ivc image with branches Urgent Y 12/02/16 18:15 Completed EV venous imaging LE LT Routine Y 12/02/16 18:15 Completed Date of admission: 12/02/16 17:08 Primary care physician: PCP NO Consults: 12/03/16 09:05 Consult to Oncology [CONS] Routine Consulting Provider: [facility] Reason for Consult: anemia, DVT Time Notified: 09:07 Call Completed: Yes Hospital course: Ms. Mathur is a 41 year old female - Time Spent with Patient Total time spent providing and/or coordinating discharge services: - Constitutional Vitals: Temp Pulse Resp BP Pulse Ox 98.6 F 77 16 128/78 97 12/03/16 15:15 12/03/16 15:15 12/03/16 15:15 12/03/16 15:15 12/03/16 15:15 - Attending Attestation Vascular surgery at [facility] requested and recommended to start a heparin drip before transferring the patient (will not use a bolus due to recent uterine ablation )
[2016-12-03] MEDS ORDERED: *HR* FentaNYL (PF) 100 MCG/2 ML VIAL ONE (15:44)
[2016-12-03] MEDS ORDERED: Propofol 500 MG/50 ML INFUS..BTL ONE (15:46)
[2016-12-03] MEDS ORDERED: *HR* Succinylcholine 200 MG/10 ML VIAL IVP ONE (15:46)
[2016-12-03] MEDS ORDERED: Lidocaine -MPF 2% 2 ML VIAL ONE (15:46)
[2016-12-03] MEDS ORDERED: Lidocaine -MPF 4% 5 ML AMPUL ONE (15:46)
--- NOTE | 2016-12-03 15:48 | Anesthesia Evaluation PreOp ---
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 & 2015] & recurrent unprovoked DVT dx 3 months ago recently on Xarelto (off now re: 4 weeks of vaginal bleeding )) Anesthesia History: No Prior Anesthetic Complications, Past Anesthesia ( [place] filter, shoulder/Rotator cuff repair, TKR, D&C) Alcohol Use: none Drug use: none Medications and Allergies Acetaminophen [Tylenol] 650 mg PO Q6HR PRN #0 tablet 12/03/16 [Rx] Docusate [Colace] 100 mg PO BID PRN #0 capsule 12/03/16 [Rx] HYDROmorphone (PF) [Dilaudid] 0.5 mg IVP Q3HR PRN #0 syringe 12/03/16 [Rx] Naloxone [Narcan] 0.4 mg IVP Q2MIN PRN #0 inj 12/03/16 [Rx] Ondansetron ODT [Zofran ODT] 4 mg SL Q8HR PRN #0 tab.rapdis 12/03/16 [Rx] OxyCODONE Immed Rel [Roxicodone 5 MG] 10 mg PO Q6HR PRN #0 tablet 12/03/16 [Rx] Pantoprazole [Protonix] 40 mg IVP 0630 vial 12/03/16 [Rx] Allergies sulfamethoxazole [From Bactrim] Allergy (Verified 12/01/16 17:01) Rash trimethoprim [From Bactrim] Allergy (Verified 12/01/16 17:01) Rash divalproex sodium [From Depakote] Adverse Reaction (Verified 12/01/16 12:11) Hallucinating sumatriptan [From Imitrex] Adverse Reaction (Verified 12/01/16 17:01) Chest Pain/Shortness Of Breath - Meds/Allergy Pre-op Review Medications Reviewed: Yes Allergies Reviewed: Yes Beta Blockers on Current Med List: Yes Anesthesia Results - Labs 12/03/16 06:28 12/02/16 04:45 Laboratory Tests 12/01/16 12/01/16 12/01/16 16:17 16:17 16:17 WBC 7.1 Hgb Hct Plt Count 264 PT INR APTT 37.4 H Sodium Potassium Chloride Carbon Dioxide BUN Creatinine Est GFR (Non-Af Amer) Glucose Serum , Qual Negative 12/02/16 12/02/16 12/03/16 04:45 04:45 06:28 WBC Hgb 8.8 L Hct 27.9 L Plt Count PT 15.3 H INR 1.4 APTT Sodium 143 Potassium 3.9 Chloride 105 Carbon Dioxide 27 BUN 11 Creatinine 1.02 Est GFR (Non-Af Amer) 59 L Glucose 98 Serum , Qual - Imaging EKG: image reviewed Anesthesia Exam Vital Signs Temp Pulse Resp BP Pulse Ox 12/03/16 15:15 98.6 F 77 16 128/78 97 12/03/16 15:10 97 12/03/16 11:14 98.4 F 72 16 126/80 96 12/03/16 10:41 96 12/03/16 07:23 96 12/03/16 06:50 98.3 F 74 18 111/60 96 12/03/16 03:17 98.4 F 98 14 100/60 94 L 12/02/16 23:11 98.1 F 80 16 141/84 96 12/02/16 19:22 98.5 F 71 14 126/78 94 L 12/02/16 16:00 98.4 F 68 16 97/61 95 Intake and Output 12/02/16 12/03/16 12/03/16 23:59 07:59 15:59 Intake Total 240 / 240 400 / 400 393.8 / 393.8 Balance 240 / 240 400 / 400 393.8 / 393.8 Intake: IV Fluids 400 / 400 393.8 / 393.8 0.45% Sodium Chloride 400 / 400 393.8 / 393.8 1000 Ml 1000 Ml 1,000 ML @ 30 mls/hr IVC .Q24H ANTOINE Rx#:[id number] Oral 240 / 240 0 / 0 0 / 0 Other: Meal Breakfast Percent of Meal Consumed 0% # Voids 1 1 1 Weight 166 kg Blood Glucose* 102 75 Patient Weight 12/03/16 23:59 Weight 166 kg Height: 5'8" Weight: 365# BMI = 55.6 NPO (# of Hours): MNOc - HEENT Pupil (Motor): Pupils equal, EOMI Mallampati: II Teeth: Normal Oral Opening: Greater than 3 - CIRCUIT BOARD ASSEMBLER LOC: Oriented CIRCUIT BOARD ASSEMBLER Motor: Normal RUE, Normal LUE, Normal Face, Deficit RLE, Deficit LLE CIRCUIT BOARD ASSEMBLER Sensory: Normal: RUE, LUE, Face, Deficit: RLE, LLE - Cardiac Rhythm: Regular Murmur: None - Pulmonary Breath Sounds: bilateral Clear Respiratory Effort: Symmetrical Anesthesia Assess/Plan ASA Score: 4 (Super MO, Recurrent DVT/PE,) Modified [place] Scale for Level of Consciousness: Cooperative, oriented, and tranquil Anesthetic Plan: General Monitoring Plan: Standard Monitors Recovery Plan: PACU Anes Supervising Prov Stmt: Pt seen/evaluated, R&B Discussed questions answered and consent obtained. Edson Tran MD
[2016-12-03] MEDS ORDERED: Acetaminophen IV 1,000 MG/100 ML INFUS..BTL ONE (16:15)
[2016-12-03] MEDS ORDERED: Dexamethasone 4 MG/ML VIAL ONE ×2 (16:33→18:10)
[2016-12-03] MEDS ORDERED: Ondansetron 4 MG/2 ML VIAL ONE (16:33)
[2016-12-03] MEDS ORDERED: Albuterol 2.5 MG/3 ML NEBULIZER IH ONE (16:48)
[2016-12-03] MEDS ORDERED: *HR* Meperidine 25 MG/ML SYRINGE IVP PRN (16:48)
[2016-12-03] MEDS ORDERED: Ondansetron 4 MG/2 ML VIAL IVP ONE (16:48)
[2016-12-03] MEDS ORDERED: Naloxone 0.4 MG/ML INJ IVP PRN (16:48)
[2016-12-03] MEDS ORDERED: *HR* Labetalol 20 MG/4 ML SYRINGE IVP PRN (16:48)
[2016-12-03] MEDS ORDERED: Ringers Solution, Lactated 500 ML IVC SCH (17:00)
[2016-12-03] MEDS ORDERED: Heparin 25,000 UNIT/500 ML D5W 25,000 UNIT/500 ML MLS IVC SCH (17:15)
--- NOTE | 2016-12-03 17:30 | OB/GYN Procedure Note ---
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 After bimanual examination, the cervix was exposed with a weighted vaginal speculum and the anterior lip of the cervix grasped with a tenaculum. The uterus was sounded to a depth of 12cm. The endocervical canal was then progressively dilated after which a hysteroscope was then introduced into the uterine cavity using sterile saline solution as a distending media and with attached video camera. The endometrial cavity was distended with fluids and the cavity visualized. The endometrial cavity was abnormally shaped to the left side. There seemed to be a large grove that continued with the ostia. A moderate amount of proliferative appearing endometrium was noted. There were no direct intraluminal lesions seen. As a result of this abnormality, the ablation was not done. Overall, the patient tolerated the procedure well. Several pictures were taken of the endometrial cavity and the hysteroscope removed from the cavity. A large sharp curet was then used to obtain a moderate amount of tissue, which was then sent to the pathologist for analysis. The instrument was removed from the vaginal vault. The patient was sent to recovery area in satisfactory postoperative condition.
[2016-12-03] MEDS ORDERED: *HR* OxyCODONE/APAP 5/325 TABLET PO PRN (17:36)
[2016-12-03] MEDS ORDERED: *HR* Midazolam HCl 2 MG/2 ML VIAL ONE (17:59)
[2016-12-03] MEDS ORDERED: Racepinephrine Neb 0.5 ML VIAL IH ONE (17:59)
[2016-12-03] MEDS ORDERED: *HR* HYDROmorphone (PF) 1 MG/ML SYRINGE ONE ×2 (18:00→18:31)
[2016-12-03] MEDS ORDERED: Ringers Solution, Lactated 1,000 ML ONE (18:10)
[2016-12-03] MEDS ORDERED: *HR* Meperidine 25 MG/ML SYRINGE ONE (18:14)
[2016-12-03] MEDS ORDERED: *HR* Morphine 10 MG/ML VIAL ONE (18:20)
[2016-12-03] MEDS ORDERED: Ipratropium/Albuterol Neb 3 ML ONE (18:21)
--- NOTE | 2016-12-03 18:45 | Venous Imaging Report ---
LE Venous Duplex Patient Name:Savana Mathur Order Number:[id number] Procedure Date:12/02/2016 Date:1975Age:41 yrs Gender:Female Location:[facility] Room #: [id number] Diesel Dinkey Engineer:Carmelina Mcbride RDCS Referring MD:Karel Thakur MD, FACS blower blast furnace:None Reading MD:Clifton Watson MD Primary Indications:IVC filter, evaluate for thrombus Secondary Indications: Risk Factors Yes/No Hx of DVT Yes Impressions: Acute deep venous thrombosis is present from the left distal iliac through the left superficial femoral vein. Acute superficial venous thrombosis is present in the left greater saphenosu vein. Recommendations: Test completed on 12/02/2016 at 7:57:00 pm. Critical findings reported to Dr Thakur by phone at 8:50:00 pm on 12/02/2016 by Carmelina Mcbride RDCS. Findings Venous Duplex Results: Left: There is an acute occlusive thrombus seen in the left distal iliac. It demonstrates an incompressible vein. Flow was absent and it did not augment. There is an acute occlusive thrombus seen in the left common femoral. It demonstrates an incompressible vein. Flow was absent and it did not augment. The left proximal superficial femoral demonstrates an incompressible vein. Flow was absent and it did not augment. There is an acute occlusive thrombus seen in the left great saphenous. It demonstrates an incompressible vein. Flow was absent and it did not augment. Lower Extremity Venous Duplex Side Vein Compress Spontaneous Flow Augment Diameter (cm) Depth (cm) Left Distal Iliac None no Absent no Left Common Femoral None no Absent no Left Superficial Femoral None no Absent no Left Great Saphenous None no Absent no Updated by Clifton Watson MD on 12/03/2016 6:40:08 PM electronically signed on 12/03/2016 6:40:18 PM with status of Final
--- NOTE | 2016-12-03 19:02 | Anesthesia Evaluation Post Op ---
Date of Encounter: 12/03/16 Time of Encounter: 19:05 - Vital Signs Vital Signs: Vital Signs/O2 Sat/Glucose, Most Current Temp Pulse Resp BP Pulse Ox 12/03/16 18:37 97.2 F L 88 24 112/77 92 L 12/03/16 18:27 81 24 142/80 96 12/03/16 18:17 93 24 162/96 96 12/03/16 18:07 97.2 F L 84 24 118/105 96 12/03/16 17:57 83 24 135/104 96 12/03/16 17:47 91 24 141/101 96 12/03/16 17:37 97.1 F L 78 16 93/60 96 12/03/16 15:15 98.6 F 77 16 128/78 97 12/03/16 15:10 97 - Lungs Lungs: Clear Ascult./Percussion - Airway Airway: Non-obstructed - Cardiovascular Regular Rate - Mental Status Mental Status: Alert & Oriented, Answers Appropriately - Pain Pain Scale: 1 - Nausea Vomiting Nausea Vomiting: Not Present - Hydration Hydration: NPO - Discharge PostOp Status: Transfer Patient to floor
[2016-12-03 20:26] VITALS: BP 153/97
== END 2016-12-03 22:16 | disposition critical access hospital (66) | DRG 744 ==
LOC: 3ANU 11:51 → EMEROO 11:51 → SUATTDRO 17:30 → 3ANU 20:36
PROVIDERS: ADMIT Internal Medicine; ATTEND Internal Medicine

== ENCOUNTER 2018-06-06 08:40 | Inpatient (IN) ==
[2018-06-06] MEDS ORDERED: *HR* FentaNYL (PF) 100 MCG/2 ML VIAL IM ONE (09:21)
[2018-06-06] MEDS ORDERED: Ondansetron ODT 4 MG TAB.RAPDIS SL ONE (09:21)
--- NOTE | 2018-06-06 09:27 | Emergency Department Note ---
Disposition Clinical Impression: DVT of deep femoral vein Qualifiers: Laterality: right Qualified Code(s): I82.411 - Acute embolism and thrombosis of right femoral vein Chest pain Qualifiers: Chest pain type: unspecified Qualified Code(s): R07.9 - Chest pain, unspecified Shoulder pain, left Qualifiers: Chronicity: chronic Qualified Code(s): M25.512 - Pain in left shoulder Disposition: Admitted As Inpatient Condition: Fair Referrals: Latasha Tavarez CNP [Primary Care Provider] - Forms: ED Satisfaction Letter Time of Disposition: 15:52 Extremity Problem HPI - General Chief complaint: ED Extremity Problem,Nontraumatic Stated complaint: L shoulder,R leg pain Time Seen by Provider: 06/06/18 08:56 Source: patient, family Mode of arrival: private vehicle Limitations: no limitations Nursing Notes Reviewed: Yes Vital Signs Reviewed: Yes - History of Present Illness HPI Narrative: Pain and swelling of the left shoulder and left leg. S/P shoulder surgery on . Hx of DVT in the past - after an ortho surgery. Home meds not helping. Saw [facility] this past Wednesday for the shoulder pain. Dx: "Inflammation", Rx: Prednisone. No improvement. LLE pain began 3 days ago. Pt Subjective Complaint: extremity pain, extremity swelling Onset (ago): day(s) (3 days of RLE pain and LUE pain since the 05 of May) Consistency: constant Injury Location: left, right, upper extremity, lower extremity Pain Scale: 10 Quality: aching Radiation: distal Improves with: nothing Worsens with: range of motion, weight bearing, walking, use Associated symptoms: Reports: chest pain ("A little sore from holding shoulder up"), myalgias, arthralgias, swelling (left upper extremity). Denies: shortness of breath, abdominal pain, back pain, fever, rash, redness Context: recent surgery/procedure, history of DVT, other - Related Data Home Medications Medication Instructions Recorded Confirmed Aspirin Enteric Coated [Aspirin EC] 81 mg PO DAILY 06/06/18 06/06/18 MethylPREDNISolone 4 mg PO AD 06/06/18 06/06/18 [MethylPREDNISolone Dose Pack] Allergies Allergy/AdvReac Type Severity Reaction Status Date / Time sulfamethoxazole Allergy Rash Verified 06/06/18 12:15 [From Bactrim] trimethoprim [From Bactrim] Allergy Rash Verified 06/06/18 12:15 divalproex sodium AdvReac Hallucinati Verified 06/06/18 12:15 [From Depakote] ng sumatriptan [From Imitrex] AdvReac Chest Verified 06/06/18 12:15 Pain/Shortness Of Breath All systems ED: reviewed and negative except as stated. Review of Systems: As Per HPI Constitutional: Denies: fever, chills, weakness Eyes: Denies: vision change Cardiovascular: Reports: as per HPI, chest pain. Denies: palpitations, dyspnea on exertion, orthopnea, edema, syncope Respiratory: Denies: cough, dyspnea, wheezes Gastrointestinal: Denies: abdominal pain, nausea, vomiting Musculoskeletal: Reports: as per HPI, joint swelling, arthralgia. Denies: back pain, neck pain Neurological: Denies: headache, weakness, numbness, paresthesias, confusion, abnormal gait, vertigo Endocrine: Denies: fatigue Hematological/Lymphatic: Denies: easy bleeding, easy bruising Past Medical History - Past Medical History Attestation: Yes The following information was validated with the patient. 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 Absent: tenderness, meningismus - Chest Chest inspection: Present: normal inspection, symmetric chest wall rise, tenderness (left pectoralis muscles) - Respiratory Respiratory exam: Present: normal lung sounds bilaterally. Absent: respiratory distress, wheezes, stridor, accessory muscle use, prolonged expiratory phase - Cardiovascular Cardiovascular exam: Present: normal rhythm, tachycardia (104 - crying), normal heart sounds - Extremities Exam Extremities exam: Present: tenderness (left posterior upper arm moderate and right medial thigh - mild), normal capillary refill. Absent: calf tenderness - Expanded Upper Extremity Exam Shoulder exam: Present: normal inspection, tenderness, tenderness over AC joint. Absent: full ROM (Decreased left due to pain), deformity, erythema Arm exam: Present: normal inspection, tenderness (left). Absent: swelling, ecchymosis, deformity, crepitus, erythema Elbow exam: Present: normal inspection, full ROM. Absent: tenderness, swelling , pain w/ pronation/supination, tenderness over radial head Forearm/Wrist exam: Present: normal inspection, full ROM. Absent: tenderness, swelling Hand exam: Present: normal inspection, full ROM. Absent: tenderness, swelling Neuromotor exam: Normal: wrist extension, thumb opposition, thumb IP flexion, thumb adduction, fingers 2-5 abduction Neurosensory exam: Normal: radial nerve, ulnar nerve, median nerve Hand tendon exam: Normal: flexor digitorum profundus (location), flexor digitorum superficialis (location), extensor tendon (location) Vascular exam: Normal: capillary refill, radial pulse, ulnar pulse - Expanded Lower Extremity Exam Hip/Pelvis exam: Present: full ROM, pelvis stable. Absent: tenderness, swelling , external rotation, internal rotation, shortening Upper leg exam: Present: normal inspection, tenderness (right medial) Knee exam: Present: normal inspection, full ROM, knee extension intact. Absent : tenderness Lower leg exam: Present: normal inspection. Absent: tenderness, swelling, Homans' sign Ankle exam: Present: normal inspection, full ROM. Absent: tenderness, swelling Foot/toe exam: Present: normal inspection, full ROM. Absent: tenderness, swelling Neurovascular/Tendon exam: Present: normal capillary refill, normal fine/light touch. Absent: pulse deficit, motor deficit, sensory deficit, tendon deficit, extremity cold to touch, pallor, foot drop, significant pain with passive ROM of distal joint Gait: not tested/not observed - Neurological Exam Neurological exam: Present: alert, oriented X3, CN II-XII intact. Absent: motor sensory deficit - Psychiatric Psychiatric exam: Present: normal affect, normal mood - Skin Skin exam: Present: warm, dry, intact, normal color Course Course Narrative: Patient presents to ER with her for evaluation of left shoulder and right leg pain. She had shoulder surgery on May 05 here at [place]. She was doing well until about two weeks ago when she tripped in her garage and fell forward. She caught herself with her left arm and has had increased pain in her shoulder since then. She was seen by [facility] this past Wednesday and was put on steroids. This has not improved her pain. The past three days she has had pain in her right hip. She points to the right lateral and medial thigh. Pain radiates into the right leg. She denies paresthesias or weakness. Extremities. She denies fever, chills, nausea, vomiting, shortness of breath, dyspnea on exertion. She has a history of DVT and PE and had a Jessa filter. She was on Xarelto but had a significant bleeding event, so this was discontinued. She reports that the filter was removed in December of last year at [facility] due to the prongs of the filter penetrating the wall of the IVC. She had stents placed in the IVC to the femorals. She has not required anticoagulation since then. Pain meds and a Doppler venous ultrasound have been ordered. Pain was not relieved with pain medication. Additional meds were ordered. Venous Doppler ultrasound shows partial occlusion of the right popliteal and superficial femoral. Left lower extremity veins show normal compressibility without clot. Patient will require additional work up. Care is being transferred to Dr. Abbott after discussion of the case. - Reevaluation(s) Reevaluation #1: Additional pain meds ordered. Heparin ordered. RUE u/s and CTA chest ordered. Patient will require admission as she has RLE clot burden with Hx of hypercoaguable state, jessa filter s/p removal and stenting of the IVC and hx of significant bleeding events when anticoagulated. Time: 12:53 Vital Signs Temperature 97.8 F 06/06/18 08:43 Pulse Rate 124 06/06/18 08:43 Respiratory Rate 20 06/06/18 08:43 Blood Pressure 189/112 06/06/18 08:43 O2 Sat by Pulse Oximetry 98 06/06/18 08:43 Temperature 97.8 F 06/06/18 08:49 Pulse Rate 101 06/06/18 14:59 Respiratory Rate 19 06/06/18 14:59 Blood Pressure 168/108 06/06/18 14:59 O2 Sat by Pulse Oximetry 98 06/06/18 14:59 Oxygen Delivery Oxygen Delivery Room Air Extremity Problem, Nontraumati - Medical Records Medical records reviewed: Yes I reviewed the patient's medical records. - Lab Data Result diagrams: 06/06/18 12:18 06/06/18 12:18 Lab Results 06/06/18 06/06/18 06/06/18 Range/Units 12:18 12:18 12:18 WBC 9.1 (4.3-11.1) K/mcL RBC 4.62 (3.82-4.97) M/mcL Hgb 13.6 (11.5-15.4) g/dL Hct 41.0 (35.3-44.9) % MCV 88.7 (83.0-100.0) fL MCH 29.4 (28.0-33.3) pg MCHC 33.2 (31.6-35.5) g/dL RDW 13.7 (11.5-14.5) % Plt Count 231 (140-400) K/mcL MPV 9.8 (9.4-12.4) fL Immature Gran % 0.6 (0-4) % Seg Neutrophils % 72.4 % Lymphocytes % 17.6 % Monocytes % 7.3 % Eosinophils % 1.4 % Basophils % 0.7 % Neutrophils # 6.6 (1.6-8.9) K/mcL Lymphocytes # 1.6 (0.6-4.6) K/mcL Monocytes # 0.7 (0.0-1.3) K/mcL Eosinophils # 0.1 (0.0-0.6) K/mcL Basophils # 0.1 (0.0-0.2) K/mcL PT 13.1 H (9.4-12.1) Seconds INR 1.2 APTT 32.8 (26.0-36.0) Seconds Heparin Anti-Xa, Unfract 0.06 L (0.30-0.70) IU/mL Sodium 137 (136-145) mEq/L Potassium 4.7 (3.5-5.1) mEq/L Chloride 108 H (98-107) mEq/L Carbon Dioxide 21 L (23-29) mEq/L BUN 15 (6-20) mg/dL Creatinine 0.86 (0.60-1.20) mg/dL Est GFR ( Amer) > 60 (> 60) Est GFR (Non-Af Amer) > 60 (> 60) BUN/Creatinine Ratio 17 (6-26) Glucose 92 (70-105) mg/dL Calculated Osmolality 284 (280-300) Calcium 9.6 (8.6-10.3) mg/dL S.B.A.R. - HamAEsteban Situation: Demographics, MOA Background: Presenting Complaint, Relevant PMH, Meds, & Allergies Assessment: Vital Signs, Course and respsone to treatment, Exam Concerns, Patient/Family Expectation, Outstanding Labs Recommendation: Barrier(s) to disposition, Recommendation based on pending studies, treatments, or consults S.B.A.REliane Report Given to: Dr. Scar CheekAEsteban Repor Time: 12:00
[2018-06-06] MEDS ORDERED: Ketorolac 60 MG/2 ML VIAL IM ONE (10:21)
[2018-06-06] MEDS ORDERED: OXYCODONE Oral CONC 10 MG/0.5 ML ORAL.SYG SL ONE ×2 (10:22→23:30)
[2018-06-06] MEDS ORDERED: Heparin 25,000 UNIT/500 ML D5W 25,000 UNIT/500 ML BAG IVC SCH (11:30)
[2018-06-06] MEDS ORDERED: *HR* Heparin 5,000 UNIT/ML VIAL IVP ONE (11:30)
[2018-06-06] MEDS ORDERED: *HR* Heparin 5,000 UNIT/ML VIAL IVP PRN ×2 (11:30)
--- NOTE | 2018-06-06 11:37 | Emergency Department Note ---
Disposition Clinical Impression: DVT of deep femoral vein Qualifiers: Laterality: right Qualified Code(s): I82.411 - Acute embolism and thrombosis of right femoral vein Chest pain Qualifiers: Chest pain type: unspecified Qualified Code(s): R07.9 - Chest pain, unspecified Shoulder pain, left Qualifiers: Chronicity: chronic Qualified Code(s): M25.512 - Pain in left shoulder; G89.29 - Other chronic pain Disposition: Admitted As Inpatient Condition: Fair Referrals: Latasha Tavarez CNP [Primary Care Provider] - Forms: ED Satisfaction Letter General Adult HPI - General Chief complaint: ED Extremity Problem,Nontraumatic Stated complaint: L shoulder,R leg pain Time Seen by Provider: 06/06/18 08:56 Source: patient, family Mode of arrival: private vehicle Nursing Notes Reviewed: Yes Vital Signs Reviewed: Yes - History of Present Illness Pain Scale: 10 - Related Data Home Medications Medication Instructions Recorded Confirmed Aspirin Enteric Coated [Aspirin EC] 81 mg PO DAILY 06/06/18 06/06/18 MethylPREDNISolone 4 mg PO AD 06/06/18 06/06/18 [MethylPREDNISolone Dose Pack] Allergies Allergy/AdvReac Type Severity Reaction Status Date / Time sulfamethoxazole Allergy Rash Verified 06/06/18 12:15 [From Bactrim] trimethoprim [From Bactrim] Allergy Rash Verified 06/06/18 12:15 divalproex sodium AdvReac Hallucinati Verified 06/06/18 12:15 [From Depakote] ng sumatriptan [From Imitrex] AdvReac Chest Verified 06/06/18 12:15 Pain/Shortness Of Breath Past Medical History - Past Medical History Medical history: Reports: DVT, hypertension, pulmonary embolus Surgical history: Reports: knee replacement, orthopedic, other, other, arthroscopy Psychiatric history: Reports: no psych history 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 - Social History Smoking Status: Never smoker Smokeless Tobacco Status: No Alcohol use: Reports: none Drug use: Reports: none Physical Exam - General General appearance: alert, in no apparent distress Course Vital Signs Temperature 97.8 F 06/06/18 08:43 Pulse Rate 124 06/06/18 08:43 Respiratory Rate 20 06/06/18 08:43 Blood Pressure 189/112 06/06/18 08:43 O2 Sat by Pulse Oximetry 98 06/06/18 08:43 Temperature 97.8 F 06/06/18 08:49 Pulse Rate 101 06/06/18 14:59 Respiratory Rate 19 06/06/18 14:59 Blood Pressure 168/108 06/06/18 14:59 O2 Sat by Pulse Oximetry 98 06/06/18 14:59 Oxygen Delivery Oxygen Delivery Room Air Medical Decision Making - MDM Narrative Medical decision making narrative: 1136 hrs.: Patient was a sign out from the day shift physician's janitorial assistant, Evangelina Gonzalez at 11 AM. Patient was being worked up for leg pain status post left shoulder surgery which happened on April [address] Conway. Patient's had tachypnea and also leg swelling. Had a DVT study done which showed a DVT in the femoropopliteal area with partial occlusion and upper thighs with multiple DVTs there. We will start her on heparin getting basic labs and then we will go ahead and bring her into the hospitalist service. 1158 hrs.: Patient's due to her pain in her left arm to her skin the arm CT her chest. Started on heparin. Give her something for pain check labs and then we will admit her. She is in agreement with this plan. She has seen hematology here in the past also slightly could be good to do a consult with them again. 1400 hrs.: Patient needs a midline placement due to poor IV access. Her labs are back. Once midline establish with CTA and then admit. 1457 hrs.: DVT study of her arm is negative for clot. Waiting on CTA and then placement. - Lab Data Result diagrams: 06/06/18 12:18 06/06/18 12:18 Lab Results 06/06/18 06/06/18 06/06/18 Range/Units 12:18 12:18 12:18 WBC 9.1 (4.3-11.1) K/mcL RBC 4.62 (3.82-4.97) M/mcL Hgb 13.6 (11.5-15.4) g/dL Hct 41.0 (35.3-44.9) % MCV 88.7 (83.0-100.0) fL MCH 29.4 (28.0-33.3) pg MCHC 33.2 (31.6-35.5) g/dL RDW 13.7 (11.5-14.5) % Plt Count 231 (140-400) K/mcL MPV 9.8 (9.4-12.4) fL Immature Gran % 0.6 (0-4) % Seg Neutrophils % 72.4 % Lymphocytes % 17.6 % Monocytes % 7.3 % Eosinophils % 1.4 % Basophils % 0.7 % Neutrophils # 6.6 (1.6-8.9) K/mcL Lymphocytes # 1.6 (0.6-4.6) K/mcL Monocytes # 0.7 (0.0-1.3) K/mcL Eosinophils # 0.1 (0.0-0.6) K/mcL Basophils # 0.1 (0.0-0.2) K/mcL PT 13.1 H (9.4-12.1) Seconds INR 1.2 APTT 32.8 (26.0-36.0) Seconds Heparin Anti-Xa, Unfract 0.06 L (0.30-0.70) IU/mL Sodium 137 (136-145) mEq/L Potassium 4.7 (3.5-5.1) mEq/L Chloride 108 H (98-107) mEq/L Carbon Dioxide 21 L (23-29) mEq/L BUN 15 (6-20) mg/dL Creatinine 0.86 (0.60-1.20) mg/dL Est GFR ( Amer) > 60 (> 60) Est GFR (Non-Af Amer) > 60 (> 60) BUN/Creatinine Ratio 17 (6-26) Glucose 92 (70-105) mg/dL Calculated Osmolality 284 (280-300) Calcium 9.6 (8.6-10.3) mg/dL
[2018-06-06] MEDS ORDERED: Isovue-370 500 ML INFUS..BTL IV ONE (11:45)
[2018-06-06] MEDS ORDERED: *HR* HYDROmorphone (PF) 1 MG/ML SYRINGE IVP ONE (11:50)
[2018-06-06] MEDS ORDERED: Ondansetron 4 MG/2 ML VIAL IVP ONE (11:57)
[2018-06-06] MEDS ORDERED: Famotidine 20 MG TABLET PO ONE (11:58)
[2018-06-06 12:35] LABS: Hemoglobin 13.6 g/dL (11.5-15.4); Immature Granulocytes % 0.6 % (0-4); Lymphocytes % 17.6 %; Mean Corpuscular HGB Conc 33.2 g/dL (31.6-35.5); Mean Corpuscular Hemoglobin 29.4 pg (28.0-33.3); Mean Corpuscular Volume 88.7 fL (83.0-100.0); Mean Platelet Volume 9.8 fL (9.4-12.4); Monocytes % 7.3 %; Platelet Count 231 K/mcL (140-400); Red Blood Count 4.62 M/mcL (3.82-4.97); Red Cell Distribution Width 13.7 % (11.5-14.5); Segmented Neutrophils % 72.4 %
[2018-06-06 12:36] LABS: Basophils # 0.1 K/mcL (0.0-0.2); Basophils % 0.7 %; Eosinophils # 0.1 K/mcL (0.0-0.6); Eosinophils % 1.4 %; Lymphocytes # 1.6 K/mcL (0.6-4.6); Monocytes # 0.7 K/mcL (0.0-1.3); Neutrophils # 6.6 K/mcL (1.6-8.9)
[2018-06-06 12:42] LABS: Heparin anti-factor XA UFH 0.06 IU/mL (0.30-0.70); INR 1.2; Prothrombin Time 13.1 Seconds (9.4-12.1)
[2018-06-06 12:44] LABS: Activated Partial Thrombo Time 32.8 Seconds (26.0-36.0)
[2018-06-06 12:46] LABS: BUN/Creatinine Ratio 17 (6-26); Blood Urea Nitrogen 15 mg/dL (6-20); Calcium 9.6 mg/dL (8.6-10.3); Carbon Dioxide 21 mEq/L (23-29); Chloride 108 mEq/L (98-107); Glucose 92 mg/dL (70-105); Osmolality,Calculated 284 (280-300); Potassium 4.7 mEq/L (3.5-5.1); Sodium 137 mEq/L (136-145); eGFR For Non-African Americans > 60 (> 60)
[2018-06-06] MEDS ORDERED: *HR* Heparin 5,000 UNIT/ML VIAL ONE (14:37)
[2018-06-06] MEDS ORDERED: *HR* Enoxaparin 80 MG/0.8 ML SYRINGE SQ STA (15:50)
[2018-06-06] MEDS ORDERED: *HR* OxyCODONE/APAP 5/325 TABLET PO ONE (18:19)
[2018-06-06] MEDS ORDERED: Naloxone 0.4 MG/ML INJ IVP PRN (18:29)
[2018-06-06] MEDS ORDERED: *HR* OxyCODONE/APAP 5/325 TABLET PO PRN (18:44)
[2018-06-06] MEDS ORDERED: *HR* FentaNYL (PF) 100 MCG/2 ML VIAL IVP PRN (18:44)
--- NOTE | 2018-06-06 18:53 | Internal Med History&Physical ---
Date of Encounter: 06/06/18 Time of Encounter: 18:15 Internal Medicine - H&P: HPI Chief complaint: right leg pain; chest pain; shoulder pain Admitted From: Emergency Dept Plans for Post Hospital Care: Home History of present illness: Ms. Mathur is a 42 year old female who presents with acute, severe, throbbing pain in her right leg into her hip, which started 2 days ago. She also complains of chest pain and severe left shoulder pain. Patient is roughly 1 month postop from left shoulder surgery. She came to ER for evaluation and was noted to have an acute thrombus in her right leg up to her femoral vein. She also underwent CT angiogram of chest which was just resulted and showed no PE. However, given her complex medical history and recurrent history of DVT and PE, she was admitted to hospitalist service. Upon my assessment of the patient, patient is complaining of throbbing pain in her right leg. She also has some left-sided chest pain and shoulder pain. She has no dyspnea. She is not tachycardic presently. However, she is quite anxious. 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 This was complicated by extensive uterine bleeding requiring admissions and transfusions. Because of inability to take chronic anti- coagulation and risk of uterine bleeding, she oftentimes stopped her anticoagulation, which resulted in further DVT and recurrent PE. 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 She required intervention including stenting of her IVC at [facility]. Patient reports that she has had hypercoagulable workup in the past and that was all negative. However, she had multiple DVTs and PEs in the past. Given her high risk for thromboembolism, I recommend lifelong anticoagulation. However, this is complicated by abnormal uterine bleeding while on anticoagulation. Furthermore, patient expresses desire to have children in the future. Patient and her have discussed elective hysterectomy in the past. Patient did receive Lovenox in the ER at roughly 4 PM. I called and spoke with pharmacy and will institute heparin drip at 4 AM while further workup is initiated and multiple consultations are obtained for further guidance. Past Med Surg Social Fam HX - Past Medical History Attestation: Yes The following information was validated with the patient. Source: patient, old records reviewed, obtained from family Medical history: DVT, hypertension, pulmonary embolus Additional medical history: uterine artery embolism Psychiatric history: no psych history - Past Surgical History Surgical History: knee replacement, orthopedic, other, other, vascular surgery, IVC filter, arthroscopy Additional surgical history: Shoulder Surgery. Left knee - Social History Smoking Status: Never smoker Smokeless Tobacco Status: No Alcohol use: none Drug use: none Occupational status: employed Current living situation: Home, With Family Activity Level: Independent ambulation Recent Out of Country Travel Within the Last 8 Weeks: No - Family History Father Hx Family Cardiac Disorders: Yes (HTN) Hx Family Endocrine Disorder: Yes (DIABETES MELLITUS.) Mother Adopted: No Living Status: Still Living Hx Family Cardiac Disorders: Yes (htn) Hx Family Respiratory Disorders: No Hx Family Cancer: No Hx Family GI Disorders: No Hx Family Endocrine Disorder: No Hx Family Neuromuscular Disorders: Yes (epilepsy) Hx Family Neurologic Disorders: No Hx Family HEENT Disorders: No Hx Family Autoimmune Disorders: No Internal Medicine - H&P: Meds Aspirin Enteric Coated [Aspirin EC] 81 mg PO DAILY 06/06/18 [History] MethylPREDNISolone [MethylPREDNISolone Dose Pack] 4 mg PO AD 06/06/18 [History] 3 Allergy/AdvReac Type Severity Reaction Status Date / Time sulfamethoxazole Allergy Rash Verified 06/06/18 12:15 [From Bactrim] trimethoprim [From Bactrim] Allergy Rash Verified 06/06/18 12:15 divalproex sodium AdvReac Hallucinati Verified 06/06/18 12:15 [From Depakote] ng sumatriptan [From Imitrex] AdvReac Chest Verified 06/06/18 12:15 Pain/Shortness Of Breath - Constitutional Constitutional: no chills, no fever(s) - EENT Eyes: no blurry vision, no change in vision Ears: no ear pain, no tinnitus Nose, mouth and throat: no nasal congestion, no sinus pressure, no sore throat - Cardiovascular Cardiovascular ROS IM: chest pain, dyspnea, dyspnea on exertion, no lightheadedness, no syncope - Respiratory Respiratory: dyspnea, no cough, no hemoptysis, no pain on inspiration, no chest congestion, no excessive phlegm production, no change in phlegm color, no pain with cough - Gastrointestinal Gastrointestinal: no abdominal pain, no diarrhea, no hematemesis, no hematochezia, no melena, no vomiting - Genitourinary Genitourinary: no flank pain, no hematuria Menstruation: period heavy (on anti-coagulation) - Musculoskeletal Musculoskeletal ROS IM: arthralgias, back pain - Integumentary Integumentary IM: no rash, no jaundice - Neurological Neurological ROS: headache(s) (migraine), no dizziness, no focal weakness, no frequent falls, no weakness - Psychiatric Psychiatric: no anxiety, no depression - Endocrine Endocrine IM: no polydipsia, no polyuria - Allergic/Immunologic Allergic/Immunologic: no GI upset with certain foods - Constitutional Vitals: Temp Pulse Resp BP Pulse Ox 98.2 F 86 18 171/105 98 06/06/18 17:48 06/06/18 17:48 06/06/18 17:48 06/06/18 17:48 06/06/18 17:48 General appearance: Present: cooperative, mild distress, A&O X 3, pleasant, answers questions appropriately Exam: see documentation below - Head Head exam: Present: atraumatic, normal inspection - Eye Eye exam: Present: EOMI, PERRL. Absent: scleral icterus Pupils: Present: normal accommodation - ENT ENT exam: Present: mucous membranes dry, normal exam, normal oropharynx - Neck Neck exam general surgery: Present: full ROM, supple. Absent: tenderness, nuchal rigidity, thyromegaly - Respiratory Respiratory exam: Present: chest wall tenderness (near left shoulder), CTAB. Absent: rales, respiratory distress, rhonchi, wheezes - Cardiovascular Cardiovascular exam: Present: RRR, +S1, +S2. Absent: diastolic murmur, distant heart sounds, systolic murmur, tachycardia - GI/Abdominal GI/Abdominal exam: Present: normal bowel sounds, soft. Absent: guarding, hepatomegaly, mass, rebound, splenomegaly, tenderness - Extremities Exam Extremities exam: Present: calf tenderness (right leg up to groin and hip), normal capillary refill, warm, radial pulses palpable and symmetrical. Absent: joint swelling - Back Exam Back exam: Absent: CVA tenderness (L), CVA tenderness (R) - Neurological Exam Neurological exam: Present: alert, CN II-XII intact, oriented X3, no focal deficits, strengths equal and symetr throughout - Psychiatric Psychiatric exam: Present: anxious - Skin Skin exam: Present: dry, intact, warm Internal Med - H&P Results - Labs CBC & Chem 7: 08/20/18 12:18 06/06/18 12:18 - Diagnostic Studies CT scan - chest Status: image reviewed by me (negative; no PE) - Assessment and plan (1) DVT of deep femoral vein Current Visit: Yes Status: Acute Assessment and plan: 1. Patient received Lovenox at 4 pm. 2. Discussed with Pharmacy -- will start heparin drip at 4 am on 06/07/18 (12 hours after Lovenox dose). 3. Consult Vascular surgery and HEM/ONC for guidance regarding further anti- coagulation +/- IVC filter. 4. May need TELEPHONE [employer] consultation given history of severe abnormal uterine bleeding while on chronic anti-coagulation. Qualifiers: Laterality: right Qualified Code(s): I82.411 - Acute embolism and thrombosis of right femoral vein (2) Chest pain Current Visit: Yes Status: Acute Assessment and plan: 1. Suspect chest wall pain from shoulder surgery. 2. CTA negative for PE. 3. Will trend troponins and EKG's. 4. Will order ECHO given history of recurrent PE. Qualifiers: Chest pain type: intercostal pain Qualified Code(s): R07.82 - Intercostal pain (3) Shoulder pain, left Current Visit: Yes Status: Acute Assessment and plan: 1. Consult Orthopedics to assess wound and for any orthopedic post-op issues. Qualifiers: Chronicity: acute Qualified Code(s): M25.512 - Pain in left shoulder - VTE Reasons for not Prescribing Prophylaxis: Not indicated-Anticoagulated or INR therapeutic
[2018-06-06] MEDS: 0.9 % Sodium Chloride 1,000 ML IVC SCH (20:51)
[2018-06-06] MEDS: methylPREDNISolone 4 MG TABLET PO SCH (20:51)
[2018-06-06 21:26] LABS: Hemoglobin 13.4 g/dL (11.5-15.4); Mean Corpuscular HGB Conc 31.9 g/dL (31.6-35.5); Mean Corpuscular Hemoglobin 28.9 pg (28.0-33.3); Mean Corpuscular Volume 90.7 fL (83.0-100.0); Mean Platelet Volume 9.8 fL (9.4-12.4); Platelet Count 232 K/mcL (140-400); Red Blood Count 4.63 M/mcL (3.82-4.97); Red Cell Distribution Width 13.9 % (11.5-14.5)
[2018-06-06 21:33] LABS: Heparin anti-factor XA UFH 0.98 IU/mL (0.30-0.70)
[2018-06-06 21:34] LABS: INR 1.2; Prothrombin Time 13.1 Seconds (9.4-12.1)
--- NOTE | 2018-06-06 23:34 | Event Note ---
Date of Encounter: 06/06/18 Time of Encounter: 23:22 Alerted by pts. nurse RAJIV Mclean that patient was complaining of 10/10 pain and very tearful. Patient reported ordered Percocet and fentanyl was not working. Percocet and plan orders canceled due to ineffective results. Patient admitted with left shoulder pain from recent surgery as well as DVT to right leg. Will try oxycodone 10 mg SL once to determine if this pain medication is effective for the patient. Nurse also reports patient refuses bedrest order and wishes to use the bathroom rather than a bedpan. Nurse stated she educated patient on the dangers of not staying in bed d/t her blood clot(s) but pt. refused and states she understands the risks but wants to use the restroom. Pt. currently on heparin drip. Pt. to be monitored closely.
[2018-06-07] MEDS ORDERED: *HR* Heparin 5,000 UNIT/ML VIAL IVP PRN ×2 (04:00)
[2018-06-07] MEDS ORDERED: Heparin 25,000 UNIT/500 ML D5W 25,000 UNIT/500 ML BAG IVC SCH (04:00)
[2018-06-07] MEDS ORDERED: *HR* FentaNYL (PF) 100 MCG/2 ML VIAL IVP ONE (04:19)
[2018-06-07 04:27] LABS: Basophils % 0.6 %; Eosinophils # 0.1 K/mcL (0.0-0.6); Eosinophils % 1.9 %; Hemoglobin 13.2 g/dL (11.5-15.4); Immature Granulocytes % 0.6 % (0-4); Lymphocytes # 1.3 K/mcL (0.6-4.6); Lymphocytes % 19.3 %; Mean Corpuscular HGB Conc 33.8 g/dL (31.6-35.5); Mean Corpuscular Hemoglobin 30.6 pg (28.0-33.3); Mean Corpuscular Volume 90.5 fL (83.0-100.0); Monocytes # 0.6 K/mcL (0.0-1.3); Neutrophils # 4.9 K/mcL (1.6-8.9); Platelet Count 251 K/mcL (140-400); Red Blood Count 4.31 M/mcL (3.82-4.97); Red Cell Distribution Width 13.6 % (11.5-14.5); Segmented Neutrophils % 69.6 %
[2018-06-07 04:30] LABS: INR 1.2
[2018-06-07 04:33] LABS: Activated Partial Thrombo Time 37.5 Seconds (26.0-36.0)
[2018-06-07 04:44] LABS: Alanine Aminotransferase 11 Units/L (7-52); Albumin 3.9 g/dL (3.5-5.7); Albumin/Globulin Ratio 1.1 (1.1-2.2); Alkaline Phosphatase 78 Units/L (34-104); Aspartate Amino Transferase 13 Units/L (13-39); BUN/Creatinine Ratio 15 (6-26); Bilirubin,Total 0.6 mg/dL (0.3-1.0); Blood Urea Nitrogen 13 mg/dL (6-20); Carbon Dioxide 20 mEq/L (23-29); Chloride 107 mEq/L (98-107); Globulin 3.4 g/dL (2.4-3.5); Glucose 124 mg/dL (70-105); Osmolality,Calculated 282 (280-300); Potassium 3.7 mEq/L (3.5-5.1); Sodium 135 mEq/L (136-145); Total Protein 7.3 g/dL (6.4-8.9); eGFR For Non-African Americans > 60 (> 60)
--- NOTE | 2018-06-07 06:49 | Orthopedics Progress Note ---
Date of Encounter: 06/07/18 Time of Encounter: 06:48 Subjective Interval history: Patient seen this morning for left shoulder pain following left shoulder surgery approximately 2 weeks ago. Patient reports improvement following surgery with increased pain recently that her to improve with physical therapy. Physical exam Left upper extremity Neurovascular intact Well-healed incision No erythema Positive swelling Decreased motion secondary to pain The patient is in no acute distress with regards to left upper extremity. Recommendation for outpatient MRI and follow-up in the office. Patient is agreeable with this treatment plan. Objective Vital signs: Vital Signs Temp Pulse Resp BP Pulse Ox 06/07/18 06:44 98.2 F 82 151/94 98 06/07/18 03:41 98.1 F 83 15 174/99 95 06/07/18 00:41 98.0 F 101 15 173/97 93 06/06/18 21:31 98.3 F 98 16 181/108 96 Intake and Output 06/06/18 06/06/18 06/07/18 15:59 23:59 07:59 Intake Total 0 / 44.5 0 / 0 Output Total 0 / 0 0 / 0 Balance 0 / 44.5 0 / 0 Intake: Oral 0 / 0 0 / 0 Output: Urine 0 / 0 0 / 0 Other: # Voids 1 Weight 172.1 kg Patient Weight 06/07/18 23:59 Weight 172.1 kg - Labs CBC & BMP: 06/07/18 03:34 06/07/18 03:34 Labs: Abnormal lab results PT 14.0 Seconds (9.4-12.1) H 06/07/18 03:34 APTT 37.5 Seconds (26.0-36.0) H 06/07/18 03:34 Heparin Anti-Xa, Unfract 0.98 IU/mL (0.30-0.70) H 06/06/18 21:13 Sodium 135 mEq/L (136-145) L 06/07/18 03:34 Carbon Dioxide 20 mEq/L (23-29) L 06/07/18 03:34 Glucose 124 mg/dL (70-105) H 06/07/18 03:34 - VTE Reasons for not Prescribing Prophylaxis: Not indicated-Anticoagulated or INR therapeutic Consult Discharge Plan - Plan Referrals: Latasha Tavarez CNP [Primary Care Provider] -
[2018-06-07] MEDS: 0.9 % Sodium Chloride 1,000 ML IVC SCH (08:20)
[2018-06-07] MEDS ORDERED: Ondansetron 4 MG/2 ML VIAL IVP PRN (08:39)
[2018-06-07] MEDS ORDERED: Aspirin Enteric Coated 81 MG Tablet PO SCH (09:00)
--- NOTE | 2018-06-07 10:14 | Internal Med Progress Note ---
Hospitalist Progress Note - Encounter Date of Encounter: 06/07/18 Time of Encounter: 09:59 - Subjective Interval History: 42 y/o female with history of recurrent DVT, PE, IVC filter removed after complete thrombis and uterine bleeding while anti-coagulated presented yesterday with right leg . - Exam Vitals: Temp Pulse Resp BP Pulse Ox 98.2 F 82 15 151/94 98 06/07/18 06:44 06/07/18 06:44 06/07/18 03:41 06/07/18 06:44 06/07/18 06:44 Exam: General : pleasant, obese female, in mild acute distress, A&Ox3 Cardiac: RRR no murmurs or gallop Respiratory: slight wheeze lower left lobe Abdomen: Soft, not distended, no tenderness, no masses or organomegaly Extremities: pulses intact, no pedal edema- no bruising on right thigh, mild warmth Neuro: CN II-X grossly intact, no focal deficits , eyes EOMI & GRACIE, negative finger to nose test, hand strength equal bilat - exam limited by left shoulder pain - Assessment and Plan (1) DVT of deep femoral vein Current Visit: Yes Status: Acute Assessment and Plan: On heparin drip - vascular consult due to patients wish for new IVC filter - hem/oc consulted for guidance on anti-coagulation (2) Shoulder pain, left Current Visit: Yes Status: Acute Assessment and Plan: likely post surgical pain - ortho consulted and they advised out patient follow up (3) Headache Current Visit: Yes Status: Acute DVT Prophylaxis: heparin drip - Time Spent with Patient Total time spent is greater than 50% in coordination of care (as documented) at patient's floor/unit and/or counseling patient: Internal Medicine: Result - Labs CBC & Chem 7: 06/07/18 03:34 06/07/18 03:34 Labs: Short CBC 06/06/18 06/07/18 Range/Units 21:13 03:34 WBC 8.0 7.0 (4.3-11.1) K/mcL Hgb 13.4 13.2 (11.5-15.4) g/dL Hct 42.0 39.0 (35.3-44.9) % Plt Count 232 251 (140-400) K/mcL Neutrophils # 4.9 (1.6-8.9) K/mcL BMP 06/07/18 03:34 Sodium 135 L Potassium 3.7 Chloride 107 Carbon Dioxide 20 L BUN 13 Creatinine 0.84 Glucose 124 H Calcium 9.0 Cardiac Enzymes 06/06/18 06/07/18 Range/Units 21:13 03:34 Troponin I < 0.03 < 0.03 (< 0.04) ng/mL Liver Function 06/07/18 Range/Units 03:34 Total Bilirubin 0.6 (0.3-1.0) mg/dL AST 13 (13-39) Units/L ALT 11 (7-52) Units/L Alkaline Phosphatase 78 (34-104) Units/L Albumin 3.9 (3.5-5.7) g/dL - ABG Interpretation ABG results: PT/INR, D-dimer PT 14.0 Seconds (9.4-12.1) H 06/07/18 03:34 - VTE Reasons for not Prescribing Prophylaxis: Not indicated-Anticoagulated or INR therapeutic Consult Discharge Plan - Plan Instructions: Peripheral Vascular Disorders (DC) Referrals: Latasha Tavarez CNP [Primary Care Provider] - Prescriptions: Apixaban [Eliquis] 10 mg PO BID 30 Days tablet (1) DVT of deep femoral vein Qualifiers: Laterality: right Qualified Code(s): I82.411 - Acute embolism and thrombosis of right femoral vein (2) Shoulder pain, left Qualifiers: Chronicity: acute Qualified Code(s): M25.512 - Pain in left shoulder
--- NOTE | 2018-06-07 11:54 | Oncology Inp Consult Note ---
Date of Encounter: 06/07/18 Time of Encounter: 10:00 Assessment and Plan (1) History of pulmonary embolism Status: Chronic Assessment and plan: CTA on 06/06/18 negative for PE (2) Deep vein thrombosis of lower extremity Status: Acute Assessment and plan: BLE venous doppler reveals acute thrombosis in the right superficial femoral and popliteal veins with normal contralateral exam. Currently on heparin gtt, discussed transitioning to Eliquis. She has a history of multiple DVT/PE, complicated with abnormal uterine bleeding s/p uterine artery embolization and removal of her IVC filter with with iliocaval thrombosis as detailed in HPI. She has not been on AC since that time. S/P right orthopedic procedure 05/05/18. Tolerating Heparin gtt well since initiation last evening with no s/s bleeding at this time CBC/CMP stable this am Plan: Recommend transition to Eliquis 10 mg twice daily for 7 days followed by 5 mg twice daily. Recommend indefinite AC if tolerated We discussed close monitoring for vaginal bleeding or other s/s bleeding IF abnormal vaginal bleeding occurs then at that time will likely need to consider COMBER SETTER intervention, potential hysterectomy and potentially IVC filter placement if she is unable to tolerate AC Patient states she is open to the idea of hysterectomy if needed Close follow up with hematology clinic has been arranged for next week with Gaudencio Shelby, patient may follow up with Dr. Gray following this No further thrombophilia workup needed at this time as she as had in the past x2 which have been negative Plan as above discussed with Dr. Gray who agrees with plan of care. Qualifiers: Affected thrombotic vein of extremity: unspecified vein of extremity Chronicity: acute Laterality: bilateral Qualified Code(s): I82.403 - Acute embolism and thrombosis of unspecified deep veins of lower extremity, bilateral - Data of Consult Patient: known to practice within the last 3 years Consult date: 06/07/18 Requesting Physician: Liliane Arriaza MD Primary Care Provider: Latasha Tavarez CNP - Consult Narrative Reason for consult: Acute RLE DVT History of present illness: Ms. Mathur is a 42 year old morbidly obese female with history of recurrent DVT/ PE complicated by issues with heavy uterine bleeding. She has most recently presented to the ER with acute RLE pain and edema. BLE venous doppler reveals acute thrombosis in the right superficial femoral and popliteal veins with normal contralateral exam. She has not been on AC since around January of 2018 following removal of her IVC filter with stenting and thrombectomy, she takes an aspirin daily. CTA negative for PE. She is s/p Left shoulder arthroscopy anterior superior labral repair, subacromial decompression, distal clavicle resection, open biceps tenodesis on 05/05/18. Upper extremity venous doppler negative for DVT/SVT. She is a non-smoker, currently on NO hormones or control. She has not had an issues with abnormal uterine bleeding since uterine artery embolization. Timeline of past VTE's summarized below. Ms. Mathur is a 41 year old female 41 yo F with PMHx of DVT, 2 PE placed on xarelto 3 weeks ago. She was seen by line director, Dr Marlen Jones at [facility] on 12/01/16. Patient with previous episodes of PE placed on xarelto and developed heavy vaginal bleeding, necessitating discontinuation of that drug. She had a recurrent extensive RLL DVT in 10/2016. At that time she was discharged on Xarelto starter pack, but she has continued to have pain and started experiencing vaginal bleeding soon after initiation of the xarelto. 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 2007- she developed 1st episode of DVT at [facility] in [place], had been in a long car ride prior to the event. Had coagulopathy workup reportedly unremarkable. Had 6 months of Coumadin then stopped. March 2014 - After 8 [address] ride to [place] had PE, started on Xarelto 20 mg a day area at that time venous Doppler negative for DVT in the lower extremity January 2015 - Bridged to Lovenox, then had a D&C. She was on low dose 60 mg subcutaneous twice a day. February 2015 - Developed another PE, and she was on Lovenox. placed back on Xarelto. Again venous Doppler negative for lower extremity DVT April 2015 - Mirena implant. This later became dislodged and removed. June 21 2015 - IVC filter [facility] at [facility]. [facility]o [facility]vera, was advised on possible hysterectomy for bleeding but patient declined since she wanted to have children. She has had ongoing problems with infertility and does not have children. She had a recurrent extensive RLL DVT in 10/2016. At that time she was discharged on Xarelto starter pack, but she has continued to have pain and started experiencing vaginal bleeding soon after initiation of the xarelto. 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 On 12/01/16, Hgb dropped from 12.o to 9.0 with exertional dyspnea, fatigue, and heavy vaginal bleeding. She was transferred to [facility] following a failed endometrial ablation secondary to her anatomic changes. Underwent uterine artery ablation on 12/05/16 with significant post emobolization pain/bleeding. She was discharged Eiliquis with plan for outpatient IVC filter removal. 01/26/17-IVC filter removed with stenting of the iliocaval system. Following this patient has taken only aspirin daily with no full anticoagulation Past Med Surg Social Fam HX - Past Medical History Medical history: DVT, hypertension, pulmonary embolus Additional medical history: uterine artery embolism Psychiatric history: no psych history - Past Surgical History Surgical History: knee replacement, orthopedic, other, other, vascular surgery, IVC filter, arthroscopy Additional surgical history: Shoulder Surgery. Left knee - Social History Smoking Status: Never smoker Smokeless Tobacco Status: No Alcohol use: none Drug use: none - Family History Father Hx Family Cardiac Disorders: Yes (HTN) Hx Family Endocrine Disorder: Yes (DIABETES MELLITUS.) Mother Adopted: No Living Status: Still Living Hx Family Cardiac Disorders: Yes (htn) Hx Family Respiratory Disorders: No Hx Family Cancer: No Hx Family GI Disorders: No Hx Family Endocrine Disorder: No Hx Family Neuromuscular Disorders: Yes (epilepsy) Hx Family Neurologic Disorders: No Hx Family HEENT Disorders: No Hx Family Autoimmune Disorders: No Medications and Allergies Aspirin Enteric Coated [Aspirin EC] 81 mg PO DAILY 06/06/18 [History] MethylPREDNISolone [MethylPREDNISolone Dose Pack] 4 mg PO AD 06/06/18 [History] Apixaban [Eliquis] 10 mg PO BID 30 Days tablet 06/07/18 [Rx] 3 Allergy/AdvReac Type Severity Reaction Status Date / Time sulfamethoxazole Allergy Rash Verified 06/06/18 12:15 [From Bactrim] trimethoprim [From Bactrim] Allergy Rash Verified 06/06/18 12:15 divalproex sodium AdvReac Hallucinati Verified 06/06/18 12:15 [From Depakote] ng sumatriptan [From Imitrex] AdvReac Chest Verified 06/06/18 12:15 Pain/Shortness Of Breath Constitutional: Absent: chills, fatigue, fever(s), weakness Eyes: Absent: change in vision Nose, mouth and throat: Absent: dysphagia Cardiovascular: Absent: dyspnea, palpitations Additional comments: reports pain to left side of chest, same side as recent right shoulder arthroplasty, appears reproducible and muscular in nature Respiratory: Present: dyspnea on exertion. Absent: cough, pain on inspiration Gastrointestinal: Absent: abdominal pain, change in bowel habits, hematemesis, hematochezia, melena, nausea, vomiting Genitourinary: Absent: hematuria Menstruation: period normal Additional comments: RLE pain Additional comments: RLE edema Neurological: Absent: focal weakness Hematologic/Lymphatic: Present: as per HPI Oncology - Exam - Constitutional Vitals: Temp Pulse Resp BP Pulse Ox 98.2 F 82 15 151/94 98 06/07/18 06:44 06/07/18 06:44 06/07/18 03:41 06/07/18 06:44 06/07/18 06:44 General appearance: cooperative, morbidly obese, no acute distress, no febrile - Head Head exam: Present: atraumatic - ENT ENT exam: Present: mucous membranes moist - Respiratory Respiratory exam: Present: CTAB. Absent: respiratory distress - Cardiovascular Cardiovascular exam: Present: RRR, +S1, +S2 - GI/Abdominal GI/Abdominal exam: Present: normal bowel sounds, soft. Absent: tenderness - Extremities Exam Extremities exam: Present: normal capillary refill Additional comments: RLE pain improving, edema R>L, RUE non pitting edema, radial pulses and dorsalis pedis pulses normal 2+ - Neurological Exam Neurological exam: Present: alert, oriented X3, no focal deficits, strengths equal and symetr throughout - Psychiatric Psychiatric exam: Present: normal affect, normal mood - Skin Skin exam: Present: dry, intact, normal color, warm Oncology - Results Labs: 3 06/07/18 06/07/18 06/07/18 10:44 10:44 03:34 WBC RBC Hgb Hct MCV MCH MCHC RDW Plt Count MPV Immature Gran % Seg Neutrophils % Lymphocytes % Monocytes % Eosinophils % Basophils % Neutrophils # Lymphocytes # Monocytes # Eosinophils # Basophils # PT INR APTT Heparin Anti-Xa, Unfract 0.99 H Sodium 135 L Potassium 3.7 Chloride 107 Carbon Dioxide 20 L BUN 13 Creatinine 0.84 Est GFR ( Amer) > 60 Est GFR (Non-Af Amer) > 60 BUN/Creatinine Ratio 15 Glucose 124 H Calculated Osmolality 282 Calcium 9.0 Total Bilirubin 0.6 AST 13 ALT 11 Alkaline Phosphatase 78 Troponin I < 0.03 Serum Total Protein 7.3 Albumin 3.9 Globulin 3.4 Albumin/Globulin Ratio 1.1 3 06/07/18 06/07/18 06/07/18 03:34 03:34 03:34 WBC 7.0 RBC 4.31 Hgb 13.2 Hct 39.0 MCV 90.5 MCH 30.6 MCHC 33.8 RDW 13.6 Plt Count 251 MPV 10.0 Immature Gran % 0.6 Seg Neutrophils % 69.6 Lymphocytes % 19.3 Monocytes % 8.0 Eosinophils % 1.9 Basophils % 0.6 Neutrophils # 4.9 Lymphocytes # 1.3 Monocytes # 0.6 Eosinophils # 0.1 Basophils # 0.0 PT 14.0 H INR 1.2 APTT 37.5 H Heparin Anti-Xa, Unfract Sodium Potassium Chloride Carbon Dioxide BUN Creatinine Est GFR ( Amer) Est GFR (Non-Af Amer) BUN/Creatinine Ratio Glucose Calculated Osmolality Calcium Total Bilirubin AST ALT Alkaline Phosphatase Troponin I < 0.03 Serum Total Protein Albumin Globulin Albumin/Globulin Ratio 3 06/06/18 06/06/18 06/06/18 21:13 21:13 21:13 WBC 8.0 RBC 4.63 Hgb 13.4 Hct 42.0 MCV 90.7 MCH 28.9 MCHC 31.9 RDW 13.9 Plt Count 232 MPV 9.8 Immature Gran % Seg Neutrophils % Lymphocytes % Monocytes % Eosinophils % Basophils % Neutrophils # Lymphocytes # Monocytes # Eosinophils # Basophils # PT 13.1 H INR 1.2 APTT Heparin Anti-Xa, Unfract 0.98 H Sodium Potassium Chloride Carbon Dioxide BUN Creatinine Est GFR ( Amer) Est GFR (Non-Af Amer) BUN/Creatinine Ratio Glucose Calculated Osmolality Calcium Total Bilirubin AST ALT Alkaline Phosphatase Troponin I < 0.03 Serum Total Protein Albumin Globulin Albumin/Globulin Ratio Consult Discharge Plan - Plan Instructions: Peripheral Vascular Disorders (DC) Referrals: Latasha Tavarez CNP [Primary Care Provider] - Prescriptions: Apixaban [Eliquis] 10 mg PO BID 30 Days tablet Inpatient Charges Provider: Jeanine Horn CNP Consult Charges: [id number]
[2018-06-07] MEDS ORDERED: Ondansetron 4 MG/2 ML VIAL IVP SCH (12:00)
[2018-06-07 12:01] VITALS: BP 167/110
[2018-06-07] MEDS: methylPREDNISolone 4 MG TABLET PO SCH (13:04)
--- NOTE | 2018-06-07 14:09 | Discharge Summary ---
<Evangelina Lee - Last Filed: 06/07/18 15:25> Orders not resulted at time of discharge: Pending orders 06/06/18 18:41 EV echocardiogram Routine 06/07/18 17:45 Heparin anti-factor XA UFH [COAG] Timed Date of Encounter: 06/07/18 Time of Encounter: 14:08 - Discharge Diagnosis (1) DVT of deep femoral vein Priority: Primary Status: Acute Qualifiers: Laterality: right Qualified Code(s): I82.411 - Acute embolism and thrombosis of right femoral vein (2) Shoulder pain, left Priority: Secondary Status: Acute Qualifiers: Chronicity: acute Qualified Code(s): M25.512 - Pain in left shoulder (3) Headache Priority: Secondary Status: Acute Qualifiers: Headache type: other drug induced headache Qualified Code(s): G44.40 - Drug -induced headache, not elsewhere classified, not intractable Hospital course: Ms. Mathur is a 42 year old female with history of recurrent DVT, PE, and past IVC filter removed after thrombus who presented yesterday with acute, severe, throbbing pain in her right leg up to her hip onset 2 days previous. In ED, ultrasound duplex showed partial occlusive thrombus of right superficial femoral and popiteal vein - she was given lovenox.. CTA showed no signs of PE. On admission she was transitioned to heparin drip and her pain treated with series of medications only giving modest decrease in pain: tried Percocet 5, fentenyl 23 then 50, and oxycodone 10. After which she reported new headache with nausea with no photophobia, phonophobia, no changes in vision, no numbness or tingling and normal nerology exam. She has history of uterine bleeding when anti-coagulated but denied any bleeding today. Hem/OC was consulted and approved her for discharge on Eliquis as she has had previous work up for hypercoagulablity. Vascular surgery consulted and did not recommend IVC filter at this time. She also complained of chest pain but no EKG acute changes and negative troponins x3. She is post op one month from left shoulder surgery so Ortho was consulted and advised no intervention at this time and that they will follow up again out patient. On discharge chest and shoulder pain has improved - described as achy pain sometimes sharp and worse at left clavicle. Discharge discussed with: patient - Time Spent with Patient Total time spent providing and/or coordinating discharge services: Greater than 30 minutes - Discharge Medications Prescriptions: Apixaban [Eliquis] 10 mg PO BID 30 Days tablet Home Medications: Aspirin Enteric Coated [Aspirin EC] 81 mg PO DAILY 06/06/18 [History] MethylPREDNISolone [MethylPREDNISolone Dose Pack] 4 mg PO AD 06/06/18 [History] Apixaban [Eliquis] 10 mg PO BID 30 Days tablet 06/07/18 [Rx] Allergies/Adverse Reactions: 3 Allergy/AdvReac Type Severity Reaction Status Date / Time sulfamethoxazole Allergy Rash Verified 06/06/18 12:15 [From Bactrim] trimethoprim [From Bactrim] Allergy Rash Verified 06/06/18 12:15 divalproex sodium AdvReac Hallucinati Verified 06/06/18 12:15 [From Depakote] ng sumatriptan [From Imitrex] AdvReac Chest Verified 06/06/18 12:15 Pain/Shortness Of Breath Date of admission: 06/06/18 18:29 Primary care physician: Latasha Tavarez CNP Consults: 06/06/18 18:41 Consult to Vascular Surgery [CONS] Routine Consulting Provider: Vascular Surgery Yessica Reason for Consult: recurrent DVT; ? IVC filter Time Notified: 18:43 Call Completed: Yes - Constitutional Vitals: Temp Pulse Resp BP Pulse Ox 98.3 F 83 15 167/110 97 06/07/18 11:58 06/07/18 11:58 06/07/18 03:41 06/07/18 11:58 06/07/18 11:58 General appearance: Present: cooperative, mild distress, A&O X 3, pleasant, answers questions appropriately Exam: Obese - Head Head exam: Present: atraumatic, normocephalic - Respiratory Respiratory exam: Present: wheezes. Absent: accessory muscle use, respiratory distress, stridor Additional comments: mild wheeze in left lower lobe - Cardiovascular Cardiovascular exam: Present: gallop, RRR. Absent: rubs - Extremities Exam Extremities exam: Present: tenderness, warm, radial pulses palpable and symmetrical. Absent: pedal edema - Neurological Exam Neurological exam: Present: alert, CN II-XII intact, oriented X3, no focal deficits, facial droop. Absent: motor sensory deficit, pronater drift, speech deficit - Patient Status Disposition: Home, Self-Care Condition: Good Functional capacity at discharge: independent ambulation Overall status at discharge: patient is not back to baseline - Discharge Instructions Instructions: Peripheral Vascular Disorders (DC) Follow Up With: Latasha Tavarez CNP [Primary Care Provider] - - Diet and Activity Activity: increase activity as tolerated Diet: advance to your usual diet - VTE Reasons for not Prescribing Prophylaxis: Not indicated-Anticoagulated or INR therapeutic <Ruddy Carrizales - Last Filed: 06/07/18 16:52> Orders not resulted at time of discharge: Pending orders 06/06/18 18:41 EV echocardiogram Routine Date of Encounter: 06/07/18 - Discharge Diagnosis (1) Chest pain Status: Acute Qualifiers: Chest pain type: intercostal pain Qualified Code(s): R07.82 - Intercostal pain (2) DVT of deep femoral vein Status: Acute Qualifiers: Laterality: right Qualified Code(s): I82.411 - Acute embolism and thrombosis of right femoral vein (3) Shoulder pain, left Status: Acute Qualifiers: Chronicity: acute Qualified Code(s): M25.512 - Pain in left shoulder Hospital course: Ms. Mathur is a 42 year old female - Time Spent with Patient Total time spent providing and/or coordinating discharge services: Date of admission: 06/06/18 18:29 Primary care physician: Latasha Tavarez CNP Consults: 06/06/18 18:41 Consult to Vascular Surgery [CONS] Routine Consulting Provider: Vascular Surgery Jackson Reason for Consult: recurrent DVT; ? IVC filter Time Notified: 18:43 Call Completed: Yes - Constitutional Vitals: Temp Pulse Resp BP Pulse Ox 98.3 F 83 15 167/110 97 06/07/18 11:58 06/07/18 11:58 06/07/18 03:41 06/07/18 11:58 06/07/18 11:58 - Attending Attestation I examined this patient and my medical decision-making was reviewed with the Resident Physician Dr. Lee. I agree with the documented findings, disposition and treatment plan as described except to the extent set forth below. Ms. Mathur is a 42 year old female with history of recurrent DVT, PE, and past IVC filter removed after thrombus who presented yesterday with acute, severe, throbbing pain in her right leg up to her hip onset 2 days previous. In ED, ultrasound duplex showed partial occlusive thrombus of right superficial femoral and popiteal vein. Pt was admitted in the hospital and started her on Heparin gtt. Pt refused to go on Xarelto and Coumadin due to side effects vaginal bleeding and hair fall respectively. However she wanted to try eliquis. So will switch to Eliquis today and d/c her home in stable condition. Recommend to f/u with Heme Onc as an out pt Gen: A, A, O x 3 Chest: Diminished BS b/l, no wheezing Heart: S1S2 + Ext: No tenderness
--- NOTE | 2018-06-07 15:14 | Vascular/Endovasc Consult Note ---
Date of Encounter: 06/07/18 Time of Encounter: 11:30 Assessment and Plan (1) Deep vein thrombosis of lower extremity Current Visit: No Status: Acute The pathophysiology and natural history of venous thromboembolism was discussed with the patient and all questions were answered. The patient is a history of deep vein thrombosis and pulmonary embolus. She is previously treated with Coumadin, then Xarelto and later Eliquis. She also has a history of an inferior vena cava filter placement. She reports that several years ago her inferior vena cava filter was removed and she had a stent placed in her vena cava. She now developed recurrent deep vein thrombosis. Her CT reveals no evidence of pulmonary embolus. He was not anticoagulated at the time of her deep vein thrombosis. At this time is recommended the patient resume anticoagulation. She reports that she has had difficulty with Coumadin and Xarelto. She reports that she was able to tolerate Eliquis in the past. She previously required uterine embolization due to bleeding while anticoagulated. It is recommended that she has further bleeding while on Eliquis she should follow-up with her accounting software specialist. At this time an inferior vena cava filter is not recommended if the patient can tolerate anticoagulation. Given her history of deep vein thrombosis and pulmonary embolus it appears the patient has a possible hypercoagulable state. Consider a referral to Hematology for further evaluation. The patient may follow-up in vascular clinic as needed. Qualifiers: Affected thrombotic vein of extremity: unspecified vein of extremity Chronicity: acute Laterality: bilateral Qualified Code(s): I82.403 - Acute embolism and thrombosis of unspecified deep veins of lower extremity, bilateral - History of Present Illness Consult date: 06/07/18 Requesting physician: Bin Krueger Consult reason: Recurrent deep vein thrombosis Chief complaint: Leg swelling History of present illness: Ms. Mathur is a 42 year old female Past Med Surg Social Fam HX - Past Medical History Medical history: DVT, hypertension, pulmonary embolus Additional medical history: uterine artery embolism Psychiatric history: no psych history - Past Surgical History Surgical History: knee replacement, orthopedic, other, other, vascular surgery, IVC filter, arthroscopy Additional surgical history: Shoulder Surgery. Left knee - Social History Smoking Status: Never smoker Smokeless Tobacco Status: No Alcohol use: none Drug use: none - Family History Father Hx Family Cardiac Disorders: Yes (HTN) Hx Family Endocrine Disorder: Yes (DIABETES MELLITUS.) Mother Adopted: No Living Status: Still Living Hx Family Cardiac Disorders: Yes (htn) Hx Family Respiratory Disorders: No Hx Family Cancer: No Hx Family GI Disorders: No Hx Family Endocrine Disorder: No Hx Family Neuromuscular Disorders: Yes (epilepsy) Hx Family Neurologic Disorders: No Hx Family HEENT Disorders: No Hx Family Autoimmune Disorders: No Medications and Allergies Aspirin Enteric Coated [Aspirin EC] 81 mg PO DAILY 06/06/18 [History] MethylPREDNISolone [MethylPREDNISolone Dose Pack] 4 mg PO AD 06/06/18 [History] Apixaban [Eliquis] 10 mg PO BID 30 Days tablet 06/07/18 [Rx] 3 Allergy/AdvReac Type Severity Reaction Status Date / Time sulfamethoxazole Allergy Rash Verified 06/06/18 12:15 [From Bactrim] trimethoprim [From Bactrim] Allergy Rash Verified 06/06/18 12:15 divalproex sodium AdvReac Hallucinati Verified 06/06/18 12:15 [From Depakote] ng sumatriptan [From Imitrex] AdvReac Chest Verified 06/06/18 12:15 Pain/Shortness Of Breath All Systems Review: The remainder of the systems were reviewed and are negative Exam Vital Signs, Last 4 Hours Temp Pulse BP Pulse Ox 06/07/18 11:58 98.3 F 83 167/110 97 General: Present: Conversant, No Apparent Distress HEENT: Present: Trachea midline, Pupils equal Neck: Absent: JVD, Lymphadenopathy Cardiac: Present: Reg Rate and Rhythm Lungs: Present: Normal Breath Sounds, No Wheeze, Rales, Rhonchi Neuro: Present: Alert and responsive, No focal deficits noted, Motor nerves grossly intact, Sensory nerves grossly intact Abdomen: Present: Soft, Non-tender, Other (Obese) Vascular: Present: Normal capillary refill, Pulse, normal, Edema. Absent: Cyanosis Skin: Present: No rashes noted on visualized skin Consult Discharge Plan - Plan Instructions: Peripheral Vascular Disorders (DC) Referrals: Latasha Tavarez CNP [Primary Care Provider] - Prescriptions: Apixaban [Eliquis] 10 mg PO BID 30 Days tablet
[2018-06-07] MEDS ORDERED: Apixaban 5 MG TABLET PO ONE (16:06)
--- NOTE | 2018-06-07 16:36 | Electrocardiograph Report ---
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
== END 2018-06-07 16:44 | disposition home or self-care (01) | DRG 300 ==
LOC: EMEROOARM 08:40 → 2NENU 08:40
PROVIDERS: ADMIT Internal Medicine; ATTEND Internal Medicine